=== PATIENT | male | born 1975 | race Caucasian/White ===

== ENCOUNTER 2020-06-20 08:22 | Day surgery (SDC) | payer BC, SELFPAY ==
[2020-06-20] VITALS (12 sets, daily range): BP systolic 108–167; BP diastolic 71–113; PULSE 71–91; RESP 12–20; TEMP 36.6–37.2; O2SAT 97–99; BMI 20.7
--- NOTE | 2020-06-20 | IR_ITS ---
APPROVED REPORT Patient Location: Outpatient Principal Associate: RAPHAEL Campbell RT (R) PROCEDURES Left heart catheterization Left ventriculogram Coronary angiogram INDICATION Numerous risk factors for coronary disease, Abnormal EKG suggesting previous anteroseptal myocardial infarction, Recurrent syncope, Angina pectoris Informed consent was obtained prior to the procedure. COMPLICATIONS NONE Estimated Blood Loss: LESS THAN 10 ML TECHNIQUE One percent lidocaine used to anesthetize the right anterior aspect of the wrist. The right radial artery was accessed via the Seldinger technique. A 6 Sinhala sheath was placed in the right radial artery. 2.5 mg of verapamil, 800 mcg of nitroglycerin, 1mg Lidocaine and 5000 U Heparin were given through the arterial sheath. The trap catheter was also used to perform left heart catheterization, left ventriculogram and selective coronary angiogram. At the end of the procedure the sheath was removed good hemostasis was achieved using Traclet band, patient was transferred to the postop holding area in stable condition. ANGIOGRAPHIC RESULTS The left main artery Normal The left anterior descending artery Normal The circumflex artery Normal The right coronary artery Dominant normal The STONER ventriculogram reveals Normal 65% The left ventricular end-diastolic pressure Normal 10 mmHg IMPRESSION Normal coronary arteries Normal ejection fraction Normal left ventricular end-diastolic pressure PLAN 1. Evaluation of noncardiac chest pain Electronically signed by : Joni Chavez, 06/20/2020 10:25:35
[2020-06-20 09:02] LABS: Basophils % 0.3 % (0.1-2.0); Eosinophils # 0.1 K/mm3 (0.0-0.4); Eosinophils % 1.3 % (0.1-12.0); Hemoglobin 16.4 g/dL (14.1-18.0); Lymphocytes # 1.5 K/mm3 (0.7-4.5); Lymphocytes % 15.6 % (10-50); Mean Corpuscular HGB Conc 33.4 g/dL (31.8-35.4); Mean Corpuscular Hemoglobin 33.5 pg (27.0-31.2); Mean Corpuscular Volume 100.2 fl (80-94); Mean Platelet Volume 8.5 fl (7.4-10.4); Monocytes # 0.5 K/mm3 (0.1-1.0); Monocytes % 4.8 % (1.7-9.3); Neutrophils # 7.3 K/mm3 (1.8-7.8); Neutrophils % 77.9 % (37.0-80.0); Platelet Count 182 K/mm3 (142-424); Red Blood Count 4.89 M/mm3 (4.60-6.20); Red Cell Distribution Width 12.4 % (11.5-17.5); White Blood Count 9.3 K/mm3 (4.8-10.8)
[2020-06-20 09:06] LABS: Chloride 100 mmol/L (98-107); Potassium 3.9 mmoL/L (3.5-5.1); Sodium 142 mmol/L (136-145)
[2020-06-20 09:09] LABS: Anion Gap 15.9 mEq/L (5-15); Blood Urea Nitrogen 7 mg/dl (9-20); Calcium 9.9 mg/dl (8.4-10.2); Carbon Dioxide 30 mmol/L (22.0-30.0); Creatinine Clearance Estimated 122 mL/min (50-200); Estimated Glomerular Filt Rate 123 ml/min (>60); GFR (African American) 149 ML/MIN (>60); Glucose 98 mg/dl (74-100)
[2020-06-20 09:46] LABS: Coronavirus 19 IgG Antibody Negative (Negative); Coronavirus 19 IgM Antibody Negative (Negative)
== END 2020-06-20 13:21 | disposition home or self-care (01) ==
LOC: CATHLAB 08:24
PROVIDERS: PCP Nurse Practitioner Family; Visit Provider Internal Medicine
DX: I10 Essential (primary) hypertension (principal); R94.31 Abnormal electrocardiogram [ECG] [EKG]; R07.9 Chest pain, unspecified; R55 Syncope and collapse; R06.02 Shortness of breath; Z72.0 Tobacco use; Z79.899 Other long term (current) drug therapy
CPT/HCPCS: 80048; 85025; 86328; 93458; 99152; C1725; C1760; C1769; J1644; Q9967

== ENCOUNTER → 2020-06-21 07:46 | Outpatient (CLI) | payer BC, SELFPAY ==
--- NOTE | 2020-06-21 07:46 | CA_ITS ---
APPROVED REPORT EXAM: Comprehensive 2D, Doppler, and color-flow Echocardiogram Warehouse Receiving Supervisor: Lorraine Ball RVT Ht: 5 ft 9 in Wt: 140lbs BSA: 1.78 BP: 162/100 mmHg Indications: CP,SOA,NEAR SYNCOPE,HTN,SMOKER,ANDREA,PECTUS EXCAVATUM,ABN EKG TDS-PT HAS PECTUS EXCAVATUM 2D Dimensions LVOT 1.78 cm (M/F) 1.5-2.5 M-Mode Dimensions RVDd 2.55 cm (0.9-2.6) LVDd 5.16 cm (3.5-5.7) LVDs 3.28 cm (3.5-5.7) IVSd 0.60 cm (0.6-1.1) PWd 0.67 cm (0.6-1.1) EF (Teich) 65.80% FS 36.40% EDV (Teich) 127.20 mL ESV (Teich) 43.50 mL LV Diastology E/A Ratio 1.43 Mitral Valve MV A Velocity 49.00 (40-130 cm/s) Left Ventricle Left atrium is mildly enlarged, left ventricle is normal size, there is no concentric left ventricular hypertrophy, visually estimated ejection fraction 55% with no regional wall motion abnormality, diastolic parameters are within normal range. Right Ventricle Right atrium and right ventricle are normal size and contractility. Aortic Valve Aortic valve is grossly normal, there is no aortic stenosis or aortic insufficiency. Mitral Valve Mitral valve is grossly normal, there is mild mitral regurgitation. Tricuspid Valve Tricuspid valve is grossly normal, there is mild tricuspid regurgitation, tricuspid regurgitation jet velocity is inadequate for calculation of the right ventricular systolic pressure. Pulmonic Valve Pulmonic valve is poorly visualized. Great Vessels Aortic root is normal size. Pericardium No significant pericardial effusion noted. Conclusion 1. Mildly enlarged left atrium, normal left ventricular size, visually estimated ejection fraction 55% with no regional wall motion abnormality, diastolic parameters are within normal range. 2. Mild mitral and tricuspid regurgitation. 3. No significant pericardial effusion noted. Electronically signed by : Juan Nielsen, 06/22/2020 11:42:44
== END ==
PROVIDERS: PCP Nurse Practitioner Family; Visit Provider Internal Medicine
DX: R07.9 Chest pain, unspecified (principal); R06.00 Dyspnea, unspecified; R94.31 Abnormal electrocardiogram [ECG] [EKG]; R55 Syncope and collapse; I10 Essential (primary) hypertension; R12 Heartburn
CPT/HCPCS: 93306

== ENCOUNTER → 2020-06-22 17:48 | Outpatient (CLI) | payer BC, SELFPAY ==
[2020-06-22 18:18] LABS: Basophils % 0.5 % (0.1-2.0); Eosinophils # 0.2 K/mm3 (0.0-0.4); Eosinophils % 2.3 % (0.1-12.0); Hematocrit 43.7 % (42.0-52.0); Hemoglobin 14.7 g/dL (14.1-18.0); Lymphocytes # 2.2 K/mm3 (0.7-4.5); Lymphocytes % 28.1 % (10-50); Mean Corpuscular HGB Conc 33.7 g/dL (31.8-35.4); Mean Corpuscular Hemoglobin 33.4 pg (27.0-31.2); Mean Corpuscular Volume 99.2 fl (80-94); Monocytes # 0.5 K/mm3 (0.1-1.0); Monocytes % 6.3 % (1.7-9.3); Neutrophils # 4.9 K/mm3 (1.8-7.8); Neutrophils % 62.7 % (37.0-80.0); Platelet Count 185 K/mm3 (142-424); Red Blood Count 4.41 M/mm3 (4.60-6.20); Red Cell Distribution Width 12.5 % (11.5-17.5); White Blood Count 7.8 K/mm3 (4.8-10.8)
[2020-06-22 18:19] LABS: Chloride 99 mmol/L (98-107); Sodium 138 mmol/L (136-145)
[2020-06-22 18:20] LABS: Potassium 3.7 mmoL/L (3.5-5.1)
[2020-06-22 18:22] LABS: Alanine Aminotransferase 56 U/L (12-78); Albumin Level 4.8 g/dl (3.5-5.0); Albumin/Globulin Ratio 1.7 (1.1-1.8); Alkaline Phosphatase 60 U/L (38-126); Anion Gap 18.7 mEq/L (5-15); Aspartate Amino Transferase 69 U/L (17-59); Bilirubin,Total 0.4 mg/dl (0.2-1.3); Blood Urea Nitrogen 7 mg/dl (9-20); Calcium 9.8 mg/dl (8.4-10.2); Carbon Dioxide 24 mmol/L (22.0-30.0); Cholesterol 188 mg/dl (140-200); Estimated Glomerular Filt Rate 147 ml/min (>60); GFR (African American) 178 ML/MIN (>60); Globulin 2.9 g/dL (1.3-3.2); Glucose 109 mg/dl (74-100); Total Protein,Serum 7.7 g/dl (6.3-8.2); Triglycerides 229 mg/dl (30-150); VLDL Cholesterol 46 mg/dL (0-40)
[2020-06-22 18:23] LABS: Chol/HDL Ratio 2.4 (1-3.5); HDL Cholesterol 78 mg/dl (40-60)
[2020-06-22 18:34] LABS: Direct LDL Cholesterol 90.54 mg/dL (100-129)
[2020-06-22 18:39] LABS: T4 (Thyroxine) 5.9 ug/dl (5.53-11.0)
[2020-06-22 18:53] LABS: Thyroid Stimulating Hormone 2.55 uIU/mL (0.465-4.68)
== END ==
PROVIDERS: Visit Provider Nurse Practitioner Family
DX: I10 Essential (primary) hypertension (principal); F41.9 Anxiety disorder, unspecified
CPT/HCPCS: 80053; 80061; 84436; 84443; 85025

== ENCOUNTER → 2020-06-27 13:32 | Outpatient (CLI) | payer BC, SELFPAY ==
[2020-06-27 14:00] LABS: Hemoglobin A1C 5.3 % (4.0-6.0)
== END ==
PROVIDERS: Visit Provider Emergency Medicine
DX: R73.9 Hyperglycemia, unspecified (principal)
CPT/HCPCS: 83036

== ENCOUNTER → 2020-07-19 08:10 | Outpatient (CLI) | payer BC, SELFPAY ==
--- NOTE | 2020-07-19 08:14 | US_ITS ---
PROCEDURE: US ABDOMEN LIMITED CLINICAL INDICATION: ABD PAIN COMPARISON: No exams were available for comparison FINDINGS: PANCREAS: Unremarkable. No obvious mass or abnormal fluid collection. No ductal dilatation LIVER: Diffuse increased echogenicity of the liver with poor through transmission of sound consistent with hepatic steatosis. No focal liver lesion demonstrated. There is appropriate direction of blood flow within non dilated portal vein. RIGHT KIDNEY: Unremarkable. Normal size and echogenicity. No hydronephrosis GALLBLADDER: No gallstones, gallbladder wall thickening, pericholecystic fluid, or biliary dilatation. IMPRESSION: Fatty liver otherwise negative right upper quadrant ultrasound Dictated by: Myke Jack MD 07/19/2020 16:29 Myke Jack MD in [place] 07/19/2020 16:29
== END ==
PROVIDERS: PCP Nurse Practitioner Family; Visit Provider Nurse Practitioner Family
DX: R10.11 Right upper quadrant pain (principal)
CPT/HCPCS: 76705

== ENCOUNTER → 2020-12-27 10:05 | Outpatient (CLI) | payer BC, SELFPAY ==
[2020-12-28 10:29] LABS: Alanine Aminotransferase 66 U/L (12-78); Albumin Level 4.8 g/dl (3.5-5.0); Alkaline Phosphatase 63 U/L (38-126); Aspartate Amino Transferase 89 U/L (17-59); Bilirubin,Direct 0.2 mg/dl (0.0-0.4); Bilirubin,Indirect 0.1 mg/dL (0.0-0.9); Bilirubin,Total 0.3 mg/dl (0.2-1.3); Bilirubin,Unconjugated 0.2 mg/dL (0.0-1.1); Total Protein,Serum 7.9 g/dl (6.3-8.2)
== END ==
PROVIDERS: Visit Provider Nurse Practitioner Family
DX: R74.8 Abnormal levels of other serum enzymes (principal)
CPT/HCPCS: 80076

== ENCOUNTER 2021-06-13 09:40 | Emergency (ER) | payer BC, SELFPAY ==
[2021-06-13 09:48] VITALS: BP 139/101; PULSE 89; RESP 16; TEMP 36.7; O2SAT 98; BMI 21.4
--- NOTE | 2021-06-13 10:08 | XR_ITS ---
PROCEDURE: XR ELBOW RT MIN 3V CLINICAL INDICATION: FALL COMPARISON: No exams were available for comparison FINDINGS: No fracture or dislocation. No lytic or blastic change. There is normal mineralization. The joint spaces are well-preserved. No significant degenerative/arthritic changes. No erosive changes evident. Other findings:None. IMPRESSION: No acute findings. Dictated by: Myke Jack MD 06/13/2021 10:20 Myke Jack MD in [facility] 06/13/2021 10:20
--- NOTE | 2021-06-13 10:08 | XR_ITS ---
PROCEDURE: XR SHOULDER RT MIN 2V CLINICAL INDICATION: PAIN COMPARISON: No exams were available for comparison FINDINGS: No fracture or dislocation. No lytic or blastic change. There is normal mineralization. The joint spaces are well-preserved. No significant degenerative/arthritic changes. No erosive changes evident. Other findings:Small focus of calcification at the distal clavicle superiorly nonspecific IMPRESSION: No acute findings. Dictated by: Myke Jack MD 06/13/2021 10:20 Myke Jack MD in [place] 06/13/2021 10:20
[2021-06-13 10:16] VITALS: BP 134/96; PULSE 90; RESP 18; TEMP 36.9; O2SAT 97; BMI 21.4
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
[2021-06-13 10:57] VITALS: BP 134/96; PULSE 90; RESP 18; TEMP 36.9; O2SAT 97
== END 2021-06-13 10:58 | disposition home or self-care (01) ==
PROVIDERS: Emergency Provider Nurse Practitioner Family; PCP Emergency Medicine
DX: S50.01XA Contusion of right elbow, initial encounter (principal); W30.89XA Contact with other specified agricultural machinery, initial encounter; Y92.017 Garden or yard in single-family (private) house as the place of occurrence of the external cause; K21.9 Gastro-esophageal reflux disease without esophagitis; I10 Essential (primary) hypertension; F17.210 Nicotine dependence, cigarettes, uncomplicated
CPT/HCPCS: 73030; 73080; 99202; G0463

== ENCOUNTER 2021-06-25 14:53 | Outpatient (RCR) | payer BC, SELFPAY | END 2021-06-25 15:24 | disposition home or self-care (01) | LOC: OT 14:53 | PROVIDERS: Visit Provider Orthopaedic Surgery | DX: M77.11 Lateral epicondylitis, right elbow (principal); G56.03 Carpal tunnel syndrome, bilateral upper limbs | CPT/HCPCS: 97763 ==

== ENCOUNTER 2023-12-19 13:40 | Emergency (ER) | payer BC, SELFPAY ==
[2023-12-19 13:43] VITALS: BP 132/94; PULSE 125; RESP 18; TEMP 36.6; O2SAT 97; BMI 20.7
[2023-12-19 13:56] VITALS: BP 134/77; PULSE 95; RESP 16; O2SAT 97
[2023-12-19 14:10] VITALS: BP 126/88; PULSE 104; RESP 18; O2SAT 98
--- NOTE | 2023-12-19 14:55 | PC.NURSE ---
Rounded on pt. No needs voiced at this time. Call light within reach
[2023-12-19 15:00] VITALS: BP 143/101; PULSE 104; RESP 18; O2SAT 99
--- NOTE | 2023-12-19 15:29 | PC.NURSE ---
Dr. Alex at [facility] for pt eval
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
[2023-12-19 15:45] VITALS: BP 124/78; PULSE 96; RESP 18; TEMP 36.6; O2SAT 98
== END 2023-12-19 15:45 | disposition home or self-care (01) ==
PROVIDERS: Emergency Provider Emergency Medicine; PCP Internal Medicine
DX: M54.42 Lumbago with sciatica, left side (principal); R20.0 Anesthesia of skin; M62.838 Other muscle spasm; F17.210 Nicotine dependence, cigarettes, uncomplicated
CPT/HCPCS: 99283

== ENCOUNTER 2023-12-25 09:31 | Outpatient (CLI) | payer BC, SELFPAY | END 2023-12-25 23:59 | LOC: LAB.DROPOF 12-29 09:31 | PROVIDERS: PCP Internal Medicine; Visit Provider Internal Medicine | DX: R07.81 Pleurodynia (principal) | CPT/HCPCS: 80053; 80061; 82746; 83036; 84443; 85025; 85651; 86703; G0432 ==

== ENCOUNTER 2023-12-25 12:58 | Outpatient (CLI) | payer BC, SELFPAY ==
--- NOTE | 2023-12-25 13:02 | XR_ITS ---
FINAL REPORT CLINICAL HISTORY: Left foot pain COMPARISON: None FINDINGS: 3 views of the left foot were obtained. There is no acute fracture or dislocation. There is moderate degenerative change at the first MTP. There is no soft tissue abnormality. IMPRESSION: Degenerative change without acute bony abnormality. Reviewed, Interpreted and Dictated by Edmund Viramontes III, MD Transcribed by Aydee Melara Authenticated and [facility]
--- NOTE | 2023-12-25 13:02 | XR_ITS ---
FINAL REPORT CLINICAL HISTORY: chest and ribs pain COMPARISON: None FINDINGS: Two views of the chest were obtained. The heart size and pulmonary vascularity are within normal limits. The mediastinum is normal. No acute pulmonary abnormality is identified. There is no pneumothorax. The bony thorax is intact. IMPRESSION: No active cardiopulmonary disease. Reviewed, Interpreted and Dictated by Edmund Viramontes III, MD Transcribed by Aydee Melara Authenticated and . [facility]
--- NOTE | 2023-12-25 13:02 | XR_ITS ---
FINAL REPORT CLINICAL HISTORY: Right foot pain COMPARISON: None FINDINGS: 3 views of the right foot were obtained. There is no acute fracture or dislocation. There is severe degenerative change of the first MTP. There is mild degenerative change elsewhere. There is no soft tissue abnormality. IMPRESSION: Degenerative changes without acute bony abnormality. Reviewed, Interpreted and Dictated by Edmund Viramontes III, MD Transcribed by Aydee Melara Authenticated and [facility]
[2023-12-25 18:28] LABS: Alanine Aminotransferase 24 U/L (12-78); Albumin Level 4.8 g/dl (3.5-5.0); Albumin/Globulin Ratio 1.7 (1.1-1.8); Alkaline Phosphatase 63 U/L (38-126); Anion Gap 13.8 mEq/L (5-15); Aspartate Amino Transferase 31 U/L (17-59); Bilirubin,Total 0.7 mg/dl (0.2-1.3); Blood Urea Nitrogen 12 mg/dl (9-20); Calcium 9.3 mg/dl (8.4-10.2); Carbon Dioxide 27 mmol/L (22.0-30.0); Chloride 99 mmol/L (98-107); Chol/HDL Ratio 3.8 (1-3.5); Cholesterol 192 mg/dl (140-200); Estimated Glomerular Filt Rate 104 ml/min (>60); GFR (African American) 125 ML/MIN (>60); Globulin 2.9 g/dL (1.3-3.2); Glucose 92 mg/dl (74-100); HDL Cholesterol 51 mg/dl (40-60); Potassium 3.8 mmoL/L (3.5-5.1); Sodium 136 mmol/L (136-145); Total Protein,Serum 7.7 g/dl (6.3-8.2); Triglycerides 232 mg/dl (30-150); VLDL Cholesterol 46 mg/dL (0-40)
[2023-12-25 18:39] LABS: Direct LDL Cholesterol 99.17 mg/dL (100-129)
[2023-12-25 18:48] LABS: Basophils % 0.4 % (0.1-2.0); Eosinophils # 0.1 K/mm3 (0.0-0.4); Hematocrit 49.1 % (42.0-52.0); Lymphocytes # 1.7 K/mm3 (0.7-4.5); Lymphocytes % 23.3 % (10-50); Mean Corpuscular HGB Conc 32.7 g/dL (31.8-35.4); Mean Corpuscular Hemoglobin 32.9 pg (27.0-31.2); Mean Corpuscular Volume 100.7 fl (80-94); Mean Platelet Volume 10.2 fl (7.4-10.4); Monocytes # 0.6 K/mm3 (0.1-1.0); Neutrophils # 4.9 K/mm3 (1.8-7.8); Neutrophils % 67.3 % (37.0-80.0); Platelet Count 162 K/mm3 (142-424); Red Blood Count 4.87 M/mm3 (4.60-6.20); Red Cell Distribution Width 12.8 % (11.5-17.5); White Blood Count 7.3 K/mm3 (4.8-10.8)
[2023-12-25 18:59] LABS: Thyroid Stimulating Hormone 1.56 uIU/mL (0.465-4.68)
[2023-12-25 19:41] LABS: Erythrocyte Sedimentation Rate 4 mm/hr (0-15)
[2023-12-25 21:30] LABS: Hemoglobin A1C 5.6 % (4.0-6.0)
[2023-12-29 14:47] LABS: HIV Screen 4th Generation wRfx Non Reactive
[2023-12-29 14:48] LABS: HBsAg Screen NEGATIVE; HCV Ab Non Reactive; Hep A Ab, IGM Negative; Hep B Core Ab, IgM NEGATIVE
== END 2023-12-25 23:59 ==
LOC: RAD 12:59
PROVIDERS: PCP Internal Medicine; Visit Provider Internal Medicine
DX: M79.671 Pain in right foot (principal); M79.672 Pain in left foot; M25.7 Osteophyte; R07.81 Pleurodynia; E78.1 Pure hyperglyceridemia; K76.0 Fatty (change of) liver, not elsewhere classified; F10.90 Alcohol use, unspecified, uncomplicated; F19.90 Other psychoactive substance use, unspecified, uncomplicated; Z11.4 Encounter for screening for human immunodeficiency virus [HIV]; F17.210 Nicotine dependence, cigarettes, uncomplicated
CPT/HCPCS: 71046; 73620; 80053; 80061; 80074; 82746; 83036; 84443; 85025; 85651; 86703; G0432

== ENCOUNTER 2024-08-02 16:26 | Emergency (ER) | payer BC, SELFPAY ==
[2024-08-02 16:53] VITALS: BP 148/119; PULSE 136; RESP 20; TEMP 36.7; O2SAT 97; BMI 21.4
--- NOTE | 2024-08-02 17:12 | EXP.UTC ---
Discharge Plan Disposition Patient Disposition: Home, Self-Care Condition: Good Prescriptions Prescriptions: No Action acetaminophen [Tylenol] 325 mg tablet 325 mg PO QID PRN (Reason: Headache) prednisone 20 mg tablet 40 mg PO DAILY 5 Days Qty: 10 0RF methocarbamol 750 mg tablet 1,500 mg PO TID 5 Days Qty: 30 0RF Referrals Follow up/Referrals: Jhoan Syed DO [Primary Care Provider] - See instructions Activity Restrictions/Add. Instructions Additional Instructions/Restrictions: GO straight to Emergency Room for further treatment and evaluation and wound closure/treatment Further Care per Emergency Room Clinical Impressions Clinical Impression: Finger laceration Qualifiers: Encounter type: initial encounter Finger: index finger Damage to nail status: with damage Foreign body presence: without foreign body Laterality: right Qualified Code(s): S61.310A - Laceration without foreign body of right index finger with damage to nail, initial encounter Print Language Print Language: Nigerien Discharge ED Provider: Nelida Alva [facility] [place] H[place] General Stated complaint: [id number] RT index finger lac Mode of Arrival: Ambulatory Source of Information: Patient Time Seen by Provider: 08/02/24 17:12 Description of Symptoms (Recalled from Triage Doc. by RN): DEEP CUT TO RIGHT INDEX FINGER, BLEEDING HEAVY HEENT Symptoms (Recalled from RN notes): No Resp Symptoms (Recalled from RN notes): No Skin Symptoms (Recalled from RN notes): Yes MS Symptoms (Recalled from RN notes): Yes Functional Status (Recalled from RN notes): RIGHT FINGER LAC History of Present Illness Provider Complaint: Patient states that he was using a chainsaw file when it slipped and cut him on the knuckle area of his right index finger States that it was bleeding profusely so family member wrapped it up with black tape and he came in Related Data Home Medications ?Medication ?Instructions ?Recorded ?Confirmed acetaminophen 325 mg tablet 325 mg PO QID PRN Headache 06/15/20 12/25/23 (Tylenol) Previous Rx's ?Medication ?Instructions ?Recorded methocarbamol 750 mg tablet 1,500 mg (2 x 750 mg) PO TID 5 12/19/23 days #30 tabs prednisone 20 mg tablet 40 mg (2 x 20 mg) PO DAILY 5 days 12/19/23 #10 tabs Allergies Allergy/AdvReac Type Severity Reaction Status Date / Time No Known Allergies Allergy Verified 12/25/23 11:47 Worker's Comp Is this a Worker's Comp case?: No [facility] Disclaimer: The information contained in this section may have been updated after the patient was seen, as this information can be updated by other users. Medical History (Updated 08/02/24 @ 17:26 by Nelida Alva APRN) Osteophyte of foot Leg weakness Social History Smoking Status: Current every day smoker tobacco type: cigarettes packs per day: 1 second hand exposure: No alcohol intake: current alcohol intake frequency: 3 or more drinks per day substance use type: denies use current occupational status: employed Travel in the last 8 weeks: None housing: house ROS Obtained: Yes All systems reviewed & no additional complaints except as documented and Yes Systems reviewed as appropriate & no additional complaints except as documented Constitutional Constitutional: Reports system reviewed and no additional complaints, except as documented and Reports as per HPI ENT Ears, Nose, Mouth, and Throat: Reports system reviewed and no additional complaints, except as documented and Reports as per HPI Cardiovascular Cardiovascular: Reports system reviewed and no additional complaints, except as documented and Reports as per HPI Gastrointestinal Gastrointestingal: Reports system reviewed and no additional complaints, except as documented and as per HPI Musculoskeletal Musculoskeletal: Reports system reviewed and no additional complaints, except as documented and Reports as per HPI Comments: Deep laceration to knuckle area on right index finger Physical Exam General General appearance: alert and in no apparent distress Respiratory Respiratory exam: Present normal lung sounds bilaterally; Absent respiratory distress or wheezes Cardiovascular Cardiovascular exam: Present regular rate, normal rhythm and normal heart sounds Expanded Upper Extremity Exam Right: Hand L/R back image: 1. large laceration noted, appears deep with what appears to be bone/tendon noted denies numbness however when digit moved heavy bleeding noted Neurological Exam Neurological exam: Present alert, oriented X3 and normal gait Medical Decision Making Medical Records Screening: Per USPSTF and CDC recommendations, given the prevalence of disease in our region, it is our hospital?s policy to screen for HIV and viral Hepatitis for all patients aged 18 and over and those with ongoing risk factors. Jw Inquiry Pt receiving controlled substance: No Jw was queried for this patient: No Vital Signs: 08/02/24 16:53 Temperature 98.1 F Temperature Source Oral Pulse Rate [Left Brachial] 136 H Respiratory Rate 20 Blood Pressure [Left Arm] 148/119 H Blood Pressure Mean [Left Arm] 128 02 Sat by Pulse Oximetry 97 Medical Decision Narrative: Family had right finger taped with bandage and black tape and finger was becoming discolored Bandage removed and noted large laceration to knuckle area on right index finger and when moved finger would bleed heavily noted question bone/tendon involvement and observed what appeared to be bone exposure discussed with patient about transfer to ED or if he would prefer to go to [facility] for hand and he discussed with Family and will go straight to Emergency Room for further treatment and evaluation Xray ordered but family arrived prior to xray being completed and he wanted to go on to the ED
[2024-08-02 17:26] VITALS: BP 148/119; PULSE 136; RESP 20; TEMP 36.7
== END 2024-08-02 17:27 | disposition home or self-care (01) ==
PROVIDERS: Emergency Provider Nurse Practitioner; PCP Internal Medicine
DX: S61.210A Laceration without foreign body of right index finger without damage to nail, initial encounter (principal); W26.8XXA Contact with other sharp object(s), not elsewhere classified, initial encounter
CPT/HCPCS: 99203; 99212; G0463

== ENCOUNTER 2024-08-20 15:27 | Emergency (ER) | payer BC, SELFPAY ==
[2024-08-20] VITALS (7 sets, daily range): BP systolic 121–147; BP diastolic 91–109; PULSE 105–113; RESP 13–21; TEMP 36.4; O2SAT 96–99; BMI 20.7
--- NOTE | 2024-08-20 15:30 | ECG_ITS ---
APPROVED REPORT Exam: Resting ECG HR:111 bpm ECG Measurements Heart Rate 111 AXES TN 166 P 75 QRSd 141 QRS -5 QT 365 T 90 QTc 430 Conclusion Sinus tach Incomplete right bundle branch block Electronically signed by : GIANCARLO NEIL, 08/20/2024 20:45:20
--- NOTE | 2024-08-20 15:31 | PC.NURSE ---
Dr. Alex at [facility] for pt eval
--- NOTE | 2024-08-20 15:34 | XR_ITS ---
FINAL REPORT CLINICAL HISTORY: soa, LE swelling COMPARISON: 12/25/2023 FINDINGS: A single portable view of the chest was obtained. Cardiomegaly is present. The mediastinum is within normal limits. When compared to the prior exam of December, there are worsening bibasilar opacities, atelectasis versus pneumonia. There are also small to moderate-sized bilateral pleural effusions, new since the prior exam. The bony thorax is intact. IMPRESSION: Worsening bibasilar opacities, atelectasis versus pneumonia, with small to moderate bilateral pleural effusions, also new since the prior exam. Reviewed, Interpreted and Dictated by Edmund Viramontes III, MD Transcribed by Maura Toledo Authenticated and [facility]
[2024-08-20] MEDS: ASPIRIN 81MG CHEWABLE TABLET 324 MG PO (15:50)
[2024-08-20] MEDS: MAGNESIUM OXIDE 400MG TABLET 400 MG PO (15:50)
[2024-08-20] MEDS: FOLIC ACID 1MG TABLET 1 MG PO (15:50)
[2024-08-20] MEDS: THIAMINE 100MG TABLET 100 MG PO (15:50)
--- NOTE | 2024-08-20 15:50 | PC.NURSE ---
RAD at BS
[2024-08-20] MEDS: MAGNESIUM SULFATE IN WATER 2 GM/50 ML PIGGYBACK IV (15:51)
[2024-08-20 15:54] LABS: Basophils % 0.4 % (0.1-2.0); Chloride 76 mmol/L (98-107); Eosinophils % 0.4 % (0.1-12.0); Hematocrit 44.3 % (42.0-52.0); Hemoglobin 15.4 g/dL (14.1-18.0); Lymphocytes # 1.4 K/mm3 (0.7-4.5); Lymphocytes % 15.4 % (10-50); Mean Corpuscular HGB Conc 34.7 g/dL (31.8-35.4); Mean Corpuscular Hemoglobin 34.8 pg (27.0-31.2); Mean Corpuscular Volume 100.2 fl (80-94); Mean Platelet Volume 9.2 fl (7.4-10.4); Monocytes # 0.8 K/mm3 (0.1-1.0); Neutrophils # 6.6 K/mm3 (1.8-7.8); Neutrophils % 74.9 % (37.0-80.0); Platelet Count 203 K/mm3 (142-424); Potassium 4.2 mmoL/L (3.5-5.1); Red Blood Count 4.42 M/mm3 (4.60-6.20); Red Cell Distribution Width 13.5 % (11.5-17.5); White Blood Count 8.8 K/mm3 (4.8-10.8)
[2024-08-20 15:56] LABS: Lipase 200 U/L (23-300); Magnesium 1.5 mg/dl (1.6-2.3)
[2024-08-20 15:57] LABS: Alanine Aminotransferase 143 U/L (12-78); Alkaline Phosphatase 208 U/L (38-126); Aspartate Amino Transferase 225 U/L (17-59); Blood Urea Nitrogen 8 mg/dl (9-20); Carbon Dioxide 22 mmol/L (22.0-30.0); Estimated Glomerular Filt Rate 144 ml/min (>60); Ethyl Alcohol 68 mg/dl (0-10); GFR (African American) 175 ML/MIN (>60)
[2024-08-20 15:58] LABS: Calcium 8.6 mg/dl (8.4-10.2); Glucose 111 mg/dl (74-100)
[2024-08-20 16:01] LABS: Activated Partial Thrombo Time 32.5 seconds (22.8-30.6)
[2024-08-20 16:04] LABS: Creatinine Clearance Estimated 137 mL/min (50-200); INR 1.18 (0.9-1.1)
[2024-08-20 16:06] LABS: Anion Gap 17.2 mEq/L (5-15); Sodium 111 mmol/L (136-145)
--- NOTE | 2024-08-20 16:06 | PC.NURSE ---
CRITICAL SODIUM 111, RECEIVED FROM LAB. PT NAME AND R/V, DR NEIL NOTIFIED
--- NOTE | 2024-08-20 16:10 | ED_ITS ---
Discharge Plan Disposition Patient Disposition: Xfer Short-Term Hosp Chief Complaint: Extremity Problem,Nontraumatic Clinical Impressions Clinical Impression: CHF exacerbation, Wet beri-beri, Acute hyponatremia Discharge ED Provider: Lewis Alex General Adult HPI General Chief complaint: Extremity Problem,Nontraumatic Stated complaint: chest pain Time Seen by Provider: 08/20/24 15:33 Mode of Arrival: Ambulatory Source of Information: Patient Limitations: No Limitations Description of Symptoms (Recalled from ER Triage Doc. by RN): c/o swelling in lower extremities and stomach for 2 weeks, swelling in the face since august 04. 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 History of Present Illness HPI narrative: Please note that above description of symptoms, in this electronic medical record under categorization of recalled from ER triage doctor by RN are reflective of an initial nursing assessment, however, is not reflective of my full history and physical exam that was personally taken and clarified. Consequentially, this preceding description of symptoms, which may include the patient's categorized chief complaint in the EMR, do not reflect my personal clinical impression, and the ultimate description of history of present illness and patient stated complaints should be deferred to this section of the note. Unless stated otherwise or congruent with this section of the note, additional signs, symptoms, or incongruence should be interpreted as inaccurate with my clinical impression. Related Data Home Medications ?Medication ?Instructions ?Recorded ?Confirmed acetaminophen 325 mg tablet 325 mg PO QID PRN Headache 06/15/20 12/25/23 (Tylenol) Previous Rx's ?Medication ?Instructions ?Recorded methocarbamol 750 mg tablet 1,500 mg (2 x 750 mg) PO TID 5 12/19/23 days #30 tabs prednisone 20 mg tablet 40 mg (2 x 20 mg) PO DAILY 5 days 12/19/23 #10 tabs Allergies Allergy/AdvReac Type Severity Reaction Status Date / Time No Known Allergies Allergy Verified 12/25/23 11:47 [facility] Disclaimer: The information contained in this section may have been updated after the patient was seen, as this information can be updated by other users. Medical History Osteophyte of foot Leg weakness Social History Smoking Status: Current every day smoker tobacco type: cigarettes packs per day: 1 second hand exposure: No alcohol intake: current alcohol intake frequency: 3 or more drinks per day substance use type: denies use current occupational status: employed Travel in the last 8 weeks: None housing: house Other Medical History Have you received the Flu Vaccine for this season: Yes Have you received the Pneumonia Vaccine: No ROS Obtained: Yes All systems reviewed & no additional complaints except as documented Physical Exam General General appearance: alert, in no apparent distress and appears intoxicated Head Head exam: atraumatic and normocephalic Eye Eye exam: Present PERRL, EOMI and scleral icterus Neck Neck exam: Present normal inspection, full ROM and trachea midline Respiratory Respiratory exam: Present normal lung sounds bilaterally; Absent respiratory distress, wheezes, stridor, accessory muscle use or prolonged expiratory phase Cardiovascular Cardiovascular exam: Present normal rhythm, tachycardia, normal heart sounds and other (Pulses equal symmetric in upper and lower extremities) Abdominal Exam Abdominal exam: Present soft; Absent distention, tenderness or pulsatile mass Extremities Exam Extremities exam: Present edema (2+ nonpitting) Neurological Exam Neurological exam: Present alert, oriented X3, CN II-XII intact and normal gait; Absent motor sensory deficit Skin Skin exam: Present warm and dry; Absent diaphoresis or erythema Medical Decision Making Medical Records Medical records reviewed: Yes I reviewed the patient's medical records. Screening: Per USPSTF and CDC recommendations, given the prevalence of disease in our region, it is our hospital?s policy to screen for HIV and viral Hepatitis for all patients aged 18 and over and those with ongoing risk factors. Jw Inquiry Pt receiving controlled substance: No Jw was queried for this patient: No Vital Signs: 08/20/24 15:27 08/20/24 16:00 08/20/24 16:15 Temperature Temperature Source Pulse Rate 110 H 105 H Pulse Rate [Left Radial] 113 H Respiratory Rate 18 19 13 Blood Pressure 122/91 H Blood Pressure [Right Arm] 147/109 H Blood Pressure Mean [Right Arm] 121 Blood Pressure Source [Right Arm] Automatic Cuff Blood Pressure Position [Right Arm] Sitting 02 Sat by Pulse Oximetry 99 98 98 Oxygen Delivery Method Room Air 08/20/24 17:16 Temperature 97.6 F Temperature Source Oral Pulse Rate 106 H Pulse Rate [Left Radial] Respiratory Rate 17 Blood Pressure 121/97 H Blood Pressure [Right Arm] Blood Pressure Mean [Right Arm] Blood Pressure Source [Right Arm] Blood Pressure Position [Right Arm] 02 Sat by Pulse Oximetry Oxygen Delivery Method Room Air Lab Data Lab Results 08/20/24 15:29: WBC 8.8, RBC 4.42 L, Hgb 15.4, Hct 44.3, MCV 100.2 H, MCH 34.8 H , MCHC 34.7, RDW 13.5, Plt Count 203, MPV 9.2, Neut % (Auto) 74.9, Lymph % (Auto) 15.4, [place] % (Auto) 9.0, Eos % (Auto) 0.4, Baso % (Auto) 0.4, Neut # (Auto) 6.6, Lymph # (Auto) 1.4, [place] # (Auto) 0.8, Eos # (Auto) 0.0, Baso # (Auto) 0.0, PT 13.0 H, INR 1.18 H, APTT 32.5 H, Sodium 111 L*, Potassium 4.2, C hloride 76 L, Carbon Dioxide 22, Anion Gap 17.2 H, BUN 8 L, Creatinine 0.60 L, Estimated Creat Clear 137, Estimated GFR 144, Est GFR ( Amer) 175, G lucose 111 H, Hemoglobin A1c 5.1, Calcium 8.6, Phosphorus 3.0, Magnesium 1.5 L, Total Bilirubin 2.0 H, AST 225 H, ALT 143 H, Alkaline Phosphatase 208 H, Troponin I 0.02, NT-Pro-B Natriuret Pep 4090 H, Total Protein 7.3, Albumin 4.1, Globulin 3.2, Albumin/Globulin Ratio 1.3, Lipase 200, TSH 4.45, Thyroxine (T4) 7.2, Plasma/Serum Alcohol 68 H 08/20/24 15:55: Ammonia < 9 L, Blood Type B Positive, Antibody Screen Negative 08/20/24 15:29 08/20/24 15:29 Orders (Tests/Meds): ED MEDICATIONS Generic Name Dose Route Start Last Admin Trade Name Freq PRN Reason Stop Dose Admin Famotidine 20 mg 08/20/24 21:00 Famotidine 20mg/2ml Vial IV 09/19/24 20:59 BID MARIO Folic Acid 1 mg 08/21/24 09:00 Folic Acid 1mg Tablet PO 09/20/24 08:59 DAILY MARIO Sodium Chloride 500 mls @ 30 mls/hr 08/20/24 16:55 08/20/24 18:01 Sod Chloride 3% 500ml Bag (Hypertonic) IV 08/21/24 09:34 30 mls/hr .[id number] ONE Administration Lorazepam 2 mg 08/20/24 16:56 Lorazepam 2mg/Ml Vial IV 09/19/24 16:55 Q1HP PRN CIWA >16 Lorazepam 1 mg 08/20/24 16:56 Lorazepam 1mg Tablet PO 09/19/24 16:55 Q1HP PRN CIWA Score 8-15 Lorazepam 1 mg 08/20/24 16:56 Lorazepam 2mg/Ml Vial IV 09/19/24 16:55 Q1HP PRN CIWA Score 8-15 Lorazepam 1 mg 08/20/24 16:56 Lorazepam 1mg Tablet PO 09/19/24 16:55 Q6HP PRN CIWA 2-7 Multivitamins 1 each 08/20/24 17:00 08/20/24 17:20 Multivitamin Tablet PO 09/19/24 16:59 Not Given 1700 MARIO Sodium Chloride 10 ml 08/20/24 16:56 Sodium Chloride 0.9% 10ml Vial IV 09/19/24 16:55 NEEDED PRN to Dilute Lorazepam inj Sodium Chloride 8 ml 08/20/24 16:56 Sodium Chloride 0.9% 10ml Vial IV 09/19/24 16:55 NEEDED PRN dilute pepcid Thiamine HCl 100 mg 08/21/24 09:00 Thiamine 100mg Tablet PO 08/23/24 09:01 DAILY MARIO Discontinued Medications Generic Name Dose Route Start Last Admin Trade Name Freq PRN Reason Stop Dose Admin Aspirin 324 mg 08/20/24 15:34 08/20/24 15:50 Aspirin 81mg Chewable Tablet PO 08/20/24 15:35 324 mg ONCE ONE Administration Folic Acid 1 mg 08/20/24 15:40 08/20/24 15:50 Folic Acid 1mg Tablet PO 08/20/24 15:41 1 mg ONCE ONE Administration Furosemide 40 mg 08/20/24 16:49 08/20/24 18:00 Furosemide 40mg/4ml Vial IV 08/20/24 16:50 40 mg ONCE ONE Administration Magnesium Sulfate 2 gm in 50 mls @ 50 mls/hr 08/20/24 15:39 08/20/24 15:51 Magnesium Sulfate 2gm/50ml Premix IV 08/20/24 16:38 50 mls/hr ONCE ONE Administration Sodium Chloride 1,000 mls @ 999 mls/hr 08/20/24 16:09 08/20/24 16:34 Sod Chlor 0.9% 1000ml Bag IV 08/20/24 17:09 999 mls/hr .Q1H1M ONE Administration Thiamine HCl 100 mg/ Sodium 51 mls @ 204 mls/hr 08/20/24 17:35 08/20/24 18:00 Chloride IV 08/20/24 17:36 204 mls/hr ONCE ONE Administration Thiamine HCl 100 mg/ Sodium 51 mls @ 204 mls/hr 08/20/24 17:46 Chloride IV 08/20/24 17:47 ONCE ONE Magnesium Oxide 400 mg 08/20/24 15:40 08/20/24 15:50 Magnesium Oxide 400mg Tablet PO 08/20/24 15:41 400 mg ONCE ONE Administration Thiamine HCl 100 mg 08/20/24 15:39 08/20/24 15:50 Thiamine 100mg Tablet PO 08/20/24 15:40 100 mg ONCE ONE Administration ORDERS Category Date Time Status Type and Screen Stat BBK 08/20/24 15:55 Completed POCUS Point of Care (ER Only) Stat Exams 08/20/24 16:52 Completed XR chest portable Stat Exams 08/20/24 15:34 Completed Ammonia Stat Lab 08/20/24 15:55 Completed Basic Metabolic Panel Routine Lab 08/20/24 22:00 Ordered Complete Blood Count Auto Diff AMLAB Lab 08/21/24 06:00 Ordered Complete Blood Count Auto Diff Routine Lab 08/20/24 16:57 Ordered Complete Blood Count Auto Diff Stat Lab 08/20/24 15:29 Completed Comprehensive Metabolic Panel AMLAB Lab 08/21/24 06:00 Ordered Comprehensive Metabolic Panel Stat Lab 08/20/24 15:29 Completed Creatinine,Urine Random Stat Lab 08/20/24 15:36 Ordered Drug Screen,Urine Stat Lab 08/20/24 15:36 Ordered Ethanol [Ethyl Alcohol] Stat Lab 08/20/24 15:29 Completed HIV (1&2) Antibody Rapid Stat Lab 08/20/24 15:29 Received Hemoglobin A1C Stat Lab 08/20/24 15:29 Completed Hep C Ab with Reflex to RNA Stat Lab 08/20/24 15:29 Received Lipase Stat Lab 08/20/24 15:29 Completed Lipid Panel AMLAB Lab 08/21/24 06:00 Ordered Magnesium AMLAB Lab 08/21/24 06:00 Ordered Magnesium Stat Lab 08/20/24 15:29 Completed NT Pro Brain Natriuretic Pep. Stat Lab 08/20/24 15:29 Completed PT INR [Prothrombin Time INR] Stat Lab 08/20/24 15:29 Completed PTT [Activated Partial Thrombo Time] Stat Lab 08/20/24 15:29 Completed Phosphorous AMLAB Lab 08/21/24 06:00 Ordered Phosphorous Routine Lab 08/20/24 15: Completed Prothrombin Time INR DAILY Lab 08/21/24 06:00 Ordered Sodium,Urine Random Stat Lab 08/20/24 15:36 Ordered T4 (Thyroxine) Stat Lab 08/20/24 15:29 Completed TSH [Thyroid Stimulating Hormone] Stat Lab 08/20/24 15:29 Completed Troponin I Q3H Lab 08/20/24 18:45 Ordered Troponin I Q3H Lab 08/20/24 21:45 Ordered Troponin I Stat Lab 08/20/24 15:29 Completed HEART Score History (anamnesis): Moderately suspicious ECG: Normal Age: 45-65 years Risk factors: 3 or more risk factors Troponin: </= normal limit HEART Score: 4 Medical Decision Narrative: 48-year-old male history of long-term tobacco use still currently smoking with likely undiagnosed COPD, alcohol use disorder currently drinking 18 beers per day as well as moderate amount of hard liquor daily presenting with shortness of breath and swelling. Patient states that he has been progressively worsening lower extremity swelling since last month. States that he now feels that he swollen all the way up to his face. No difficulty breathing, swallowing, fevers, chills, night sweats. Patient has never had anything like this in the past. No unilateral swelling as compared to the other side. It is all symmetric. States that he is having difficulty lying flat at night, sleeps propped up on pillows and has not had any cough. Still currently smoking and drinking, last drink was this morning. History was obtained via conversation with patient and significant other. On arrival, patient hemodynamically stable, alert, oriented x4, appropriate, GCS 15, moving all extremities spontaneously, pupils equal and reactive to light. Full physical exam performed and significant for chronically ill-appearing male who is in no acute distress. Lungs are clear to auscultation bilaterally anterior and posteriorly. Cardiac exam without murmurs gallops or rubs. He does have 2+ nonpitting lower extremity edema as well as edema in his upper extremities. Patient's sclera are slightly icteric. Face does not appear to be edematous grossly. No evidence of tonsillitis, exudate, pharyngeal erythema, uvular deviation, palatal swelling, trismus, external neck swelling, submental induration, dental abscess, angioedema, or other abnormal shirley pharyngeal findings. Differential includes CHF, wet beriberi, vitamin or mineral deficiency, other metabolic derangement, hypothyroidism, COPD, pneumonia, fluid overload, renal insufficiency, among others. Patient given IV and oral thiamine, oral folate, IV magnesium 2 g, Lasix IV, and hypertonic saline was started at slow rate at recommendation of hospitalist after consultation. Patient placed on continuous cardiac monitoring and continuous pulse ox with initial blood pressure 147/109, heart rate 113, oxygen saturation 99% on room air. Bedside [id number] ultrasound with B-lines, EPSS 27, TAPSE 9 mm consistent with severe heart failure. Patient also has small pericardial effusion. Independent interpretation of EKG shows sinus tachycardia [address] depressions and T wave inversions in V5, V6. No reciprocal change. QRS widened 141. LA 166, QTc 430. Borderline leftward axis. Patient was given IV magnesium, folate and thiamine p.o. for symptomatic management and correction of underlying abnormalities. Workup independently interpreted and significant for nonactionable CBC. INR 1.18. Patient's chemistry concerning for sodium 111, chloride 76, creatinine 0.6 and BUN 8. Patient's magnesium low at 1.5, LFTs all elevated bilirubin 2.0, AST 225, ALT 143, alkaline phosphatase 208. Ammonia negative. Trope negative. Patient's BNP elevated at 4100. Alcohol level 68. On independent interpretation of imaging, patient has bilateral pleural effusions, cardiomegaly edematous fissures consistent with heart failure. See radiology read for full review of final results. Heart score 4. On reevaluation, patient remains at baseline. Medicine consulted and case was discussed at length. Because we do not have cardiology on over the weekend, no ability to formally evaluate and manage patient inpatient, recommended transfer. Given patient presentation, workup, history, this most likely represents acute CHF, likely wet beriberi in the setting of current call abuse and chronic hyponatremia. Because patient high risk for clinical decompensation if discharged, deemed appropriate for transfer and inpatient admission. Results were relayed to patient who voiced understanding and patient was agreeable to transfer, inpatient admission, and management. Patient was graciously accepted and transferred to [facility] for further definitive management, under Dr. Santiago. Bacteriology Professor disclaimer Much of this encounter note is an electronic buyer internship spoken language to printed text. Electronic buyer internship of the spoken language may permit errors. Although I have reviewed the note, some errors may still exist. Procedures Limited Ultrasound Indication:: Limited cardiac ultrasound Indication: Shortness of breath, PND, orthopnea Identified cardiac views: -Cardiac parasternal long axis -Cardiac parasternal short axis Findings: -Cardiac activity present -Gross wall motion abnormal -Pericardial effusion present -Right heart strain absent Impression: Patient has globally decreased systolic function with estimated EF less than 10%. Small pericardial effusion. EPSS 27, TAPSE 9 mm. Images were saved to permanent archive The study was technically adequate CPT: 76215 This study was performed by me, and I personally interpreted all images/videos. Based on my clinical judgement, these images were adequate and did not necessitate further imaging Critical Care Critical Care Time Critical Care Time: Yes (cv) Attestation: On 08/20/24, the high probability of a clinically significant, sudden or life threatening deterioration of the following system(s) required my full and direct attention, intervention and personal management. The time I documented below is in addition to time spent performing reported procedures but includes the following listed in this critical care notation. Total Time Total Critical Care Time: 45
[2024-08-20 16:15] LABS: Troponin I 0.02 ng/ml (0.00-0.034)
[2024-08-20 16:16] LABS: Hemoglobin A1C 5.1 % (4.0-6.0)
[2024-08-20 16:29] LABS: Ammonia < 9 umol/L (9-30)
[2024-08-20 16:32] LABS: NT Pro Brain Natriuretic Pep. 4090 pg/mL (0-125)
[2024-08-20] MEDS: 0.9 % SODIUM CHLORIDE 1000ML 1,000 ML 999 ML IV (16:34)
[2024-08-20 16:35] LABS: Thyroid Stimulating Hormone 4.45 uIU/mL (0.465-4.68)
--- NOTE | 2024-08-20 16:41 | PC.NURSE ---
DR NEIL ATTEMPTED TO SPEAK WITH HOSPITALIST, WILL CALL BACK
[2024-08-20 16:42] LABS: Albumin Level 4.1 g/dl (3.5-5.0); Albumin/Globulin Ratio 1.3 (1.1-1.8); Globulin 3.2 g/dL (1.3-3.2); Total Protein,Serum 7.3 g/dl (6.3-8.2)
[2024-08-20 16:43] LABS: T4 (Thyroxine) 7.2 ug/dl (5.53-11.0)
--- NOTE | 2024-08-20 16:58 | PC.NURSE ---
PAINTER SUPERVISOR NOTIFIED OF ADMISSION
--- NOTE | 2024-08-20 17:03 | EXP.HP ---
History of Present Illness *Admission Date: 08/20/24 *Reason for visit:: Dyspnea with exertion *History of present illness: Mr. Lu is a 48-year-old male with history of alcoholism who reports drinking a case of beer a day and 1/5 tequila a day. He presented to the ER at the encouragement of his family because of inability to walk more than a few feet without being severely short of breath. States that he has been having increased swelling in his legs and dyspnea with exertion over the past 2 to 3 weeks. Denies any syncope, chest pain, nausea or vomiting. On arrival to the ER, found to have peripheral edema, tachycardia, and significant lab abnormalities. Patient has a sodium of 111, chloride 76. Bedside echo concerning for EF less than 10%. Feet are cold. Appears to have acute heart failure with reduced ejection fraction. Also noted to have elevated liver enzymes with a meld of 11. Medicine consulted for admission or treatment recommendations. On evaluation, family is at bedside. Patient stable on room air. Feet noted to be cold with mottling. 3+ edema in lower extremities. Lung lilly diminished in lower portions on inspiration. Findings significantly concerning for wet. Very with heart failure. [facility] Disclaimer: The information contained in this section may have been updated after the patient was seen, as this information can be updated by other users. Medical History Osteophyte of foot Leg weakness Social History Smoking Status: Current every day smoker tobacco type: cigarettes packs per day: 1 second hand exposure: No alcohol intake: current alcohol intake frequency: 3 or more drinks per day substance use type: denies use current occupational status: employed Travel in the last 8 weeks: None housing: house Other Medical History Have you received the Flu Vaccine for this season: Yes Have you received the Pneumonia Vaccine: No Review of Systems Review of Systems Review of systems (narrative): 14 point review of systems performed, pertinent positives and negatives as per HPI Meds Home Medications and Allergies Home Medications ?Medication ?Instructions ?Recorded ?Confirmed ?Type acetaminophen 325 mg tablet 325 mg PO QID PRN Headache 06/15/20 12/25/23 History (Tylenol) methocarbamol 750 mg tablet 1,500 mg (2 x 750 mg) PO TID 5 12/19/23 Rx days #30 tabs prednisone 20 mg tablet 40 mg (2 x 20 mg) PO DAILY 5 days 12/19/23 12/25/23 Rx #10 tabs New Prescriptions to Start Prescriptions: Allergies Allergy/AdvReac Type Severity Reaction Status Date / Time No Known Allergies Allergy Verified 12/25/23 11:47 Exam Data for Last 24 hours Vital signs and Labs for Last 24 Hours: Pulse Resp BP Pulse Ox O2 Del Method 110 H 19 147/109 H 98 Room Air 08/20/24 16:00 08/20/24 16:00 08/20/24 15:27 08/20/24 16:00 08/20/24 15:27 Laboratory Results - last 24 hr 08/20/24 15:29: WBC 8.8, RBC 4.42 L, Hgb 15.4, Hct 44.3, MCV 100.2 H, MCH 34.8 H, MCHC 34.7, RDW 13.5, Plt Count 203, MPV 9.2, Neut % (Auto) 74.9, Lymph % (Auto) 15.4, [place] % (Auto) 9.0, Eos % (Auto) 0.4, Baso % (Auto) 0.4, Neut # (Auto) 6.6, Lymph # (Auto) 1.4, [place] # (Auto) 0.8, Eos # (Auto) 0.0, Baso # (Auto) 0.0, PT 13.0 H, INR 1.18 H, APTT 32.5 H, Sodium 111 L*, Potassium 4.2, Chloride 76 L, Carbon Dioxide 22, Anion Gap 17.2 H, BUN 8 L, Creatinine 0.60 L, Estimated Creat Clear 137, Estimated GFR 144, Est GFR ( Amer) 175, Glucose 111 H, Hemoglobin A1c 5.1, Calcium 8.6, Magnesium 1.5 L, Total Bilirubin 2.0 H, AST 225 H, ALT 143 H, Alkaline Phosphatase 208 H, Troponin I 0.02, NT-Pro-B Natriuret Pep 4090 H, Total Protein 7.3, Albumin 4.1, Globulin 3.2, Albumin/Globulin Ratio 1.3, Lipase 200, TSH 4.45, Thyroxine (T4) 7.2, Plasma/Serum Alcohol 68 H 08/20/24 15:55: Ammonia < 9 L, Blood Type B Positive, Antibody Screen Negative I & O for Last 24 hours: Intake & Output 08/17/24 08/18/24 08/19/24 08/20/24 23:59 23:59 23:59 23:59 Weight 63.503 kg Constitutional Constitutional: mild distress, thin, chronically ill appearing and cooperative *Routine HEENT Exam Head: Present normocephalic and atraumatic Eye: Present EOMI and PERRL ENT: Present mucous membranes moist Comments: Scleral icterus; breath smells like alcohol *Routine Neck Exam Neck: Present supple *Routine Respiratory Exam Respiratory: Present prolonged expiratory phase, crackles (Bilateral bases) and diminished air movement; Absent rhonchi or wheezes *Routine Cardiovascular Exam Cardiovascular: Present tachycardia; Absent murmur *Routine Abdominal Exam Abdominal: Present soft, normoactive bowel sounds and tenderness; Absent distended Comments: Abdominal wall edema. Liver palpable 4 fingerbreadths below costal margin *Routine Rectal Exam Rectal:: deferred *Routine Genitalia Exam Genitalia:: deferred *Routine Extremities Exam Extremities: Present edema (3+ knees) Comments: Mottling of feet, feet cold *Routine Skin Exam Skin: Present intact and mottling (Feet and hands); Absent erythema *Routine Neurological Exam Neurological: Present alert, oriented X3 and moving all extremities; Absent altered mental status Routine Psychiatric Exam Psychiatric: Present normal affect Assessment and Plan *Assessment and plan (1) New onset of congestive heart failure: Status: Acute Category: Medical Code(s): I50.9 - Heart failure, unspecified (2) Hyponatremia: Status: Acute Category: Medical Code(s): E87.1 - Hypo-osmolality and hyponatremia (3) Alcoholic hepatitis: Status: Acute Category: Medical Code(s): K70.10 - Alcoholic hepatitis without ascites (4) Alcohol use disorder: Problem Comment: I think this patient does have an alcohol use disorder. Will follow closely and work with him to the best of our ability to get him to quit drinking. Status: Acute Category: Medical Code(s): F10.90 - Alcohol use, unspecified, uncomplicated (5) Hepatic steatosis: Problem Comment: I think in the very near future we need to get a better look at his liver. Will get liver functions today. We have not gotten labs in this gentleman for quite some time. His heavy alcohol use is an issue I have discussed this with him today. Status: Acute Category: Medical Code(s): K76.0 - Fatty (change of) liver, not elsewhere classified (6) HTN (hypertension): Problem Comment: I told this patient that he needs to check his blood pressures at home. He needs to do this in the morning before he smokes or drinks coffee or anything else. He is to record them and bring them back to the clinic. We may need to treat him at that time. I will see him back in 2 weeks. Status: Acute Qualifiers: Hypertension type: essential hypertension Qualified Code(s): I10 - Essential (primary) hypertension Category: Medical Code(s): I10 - Essential (primary) hypertension (7) Anasarca: Status: Acute Category: Medical Code(s): R60.1 - Generalized edema Plan Mr. Lu is a 48-year-old male with significant alcohol dependence who presents with worsening dyspnea and swelling over the past 2 to 3 weeks. Discussed case with ER physician, strong concern for wet beriberi with additional findings of alcoholic hepatitis and hyponatremia. Patient was evaluated in the ER. While he is hemodynamically stable at this time, bedside echo concerning for EF less than 10%. Recommend at this time patient be transferred to higher level of care given concern for impending cardiogenic shock, white beriberi, hyponatremia, and alcoholic hepatitis. Will need monitoring for alcohol withdrawal. - Recommend initiating diuresis with Lasix 80 mg once. - Recommend thiamine 100 mg IV x 1 -Close monitoring of sodium every 6 hours, correction rate 8 to 10 mEq/day -Would benefit from initiating hypertonic saline at 30 cc an hour due to severity of hyponatremia of 111. Chloride 76. -Thiamine level ordered and pending - Magnesium 1.5, bilirubin 2, AST 225, ALT 143. BNP 4000. - obtain Urine sodium to evaluate hyponatremia -Alcohol level 70, CIWA protocol while awaiting transfer. Would recommend Ativan p.o. or IV if has symptoms given concern for alcoholic hepatitis -MELD score 11. -Continue telemetry -Thank you for the opportunity to consult on this patient, if unable to transfer, will admit to ICU for monitoring and treatment with re-evaluation.
--- NOTE | 2024-08-20 17:12 | PC.NURSE ---
report given to Eli ROSS
--- NOTE | 2024-08-20 17:18 | PC.NURSE ---
Rosamaria, college specialist, at BS with pt
[2024-08-20] MEDS: THIAMINE HCL 100 MG in 0.9 % SODIUM CHLORIDE 50 ML 204 MG IV (18:00)
[2024-08-20] MEDS: FUROSEMIDE 40MG/4ML VIAL 40 MG IV (18:00)
[2024-08-20] MEDS: SODIUM CHLORIDE 3 % 500 ML 30 ML IV (18:01)
--- NOTE | 2024-08-20 18:34 | PC.NURSE ---
report called Oumou ROSS
[2024-08-20 18:36] LABS: HIV (1&2) Antibody Rapid NONREACTIVE (NONREACTIVE)
--- NOTE | 2024-08-20 18:38 | PC.NURSE ---
[facility] NOTIFIED OF TRANSFER TO [facility]
--- NOTE | 2024-08-20 19:49 | PEERSUPPORT ---
Peer Support Note Patient Information Patient Information: DOS: 08/20/2024 ? Reason: AUD/Ps Consult ? Pt shared he has been drinking for majority of his lifetime, 25 plus years. He started with beer then progressed to liquor daily. He says he did not realize what is was doing to him and now he is scared of dying. Pt is not one to go to doctors or take medicines he says he is stubborn like that. ? Ps provides empathetic listening to validate feelings without judgment of expressed emotions. Ps shared relevant personal stories to his issues to foster acceptance and hope that through connection to recovery and specialized treatment for underlying issues including health concerns can enhance his quality of life. ? Pt shares he is anxious about being transferred to [facility]. Ps encouraged him to ask questions as they arise to the providers and nurses for a better understanding. ? Ps acted as advocate to providers including said questions while at bedside with pt. ? Support System: Both very supportive Significant other Sister ? Plan of Action: Pt agrees to follow up calls from Ps to assist in finding the right form of treatment or support groups for his AUD following his transfer to for his priority concern being his cardio health. Thank you for allowing [facility] to assist in caring for the patient!?
[2024-08-22 09:09] LABS: HCV Ab Non Reactive (Non Reactive)
== END 2024-08-20 19:09 | disposition short-term general hospital (02) ==
LOC: ER 16:07 → 2ND 17:17 → ER 18:34
PROVIDERS: Internal Medicine Adolescent Medicine; Emergency Provider Emergency Medicine; PCP Internal Medicine
DX: I50.9 Heart failure, unspecified (principal); E87.1 Hypo-osmolality and hyponatremia; K70.10 Alcoholic hepatitis without ascites; R79.0 Abnormal level of blood mineral
CPT/HCPCS: 71045; 80050; 80053; 80320; 82140; 83036; 83690; 83735; 83880; 84100; 84436; 84443; 84484; 85025; 85610; 85730; 86803; 86850; 87389; 93005; 96361; 96365; 96375; 99285; G0480; J1940; J3411; J3475; J7030

== ENCOUNTER 2024-09-13 09:20 | Outpatient (CLI) | payer BC, SELFPAY ==
[2024-09-13 18:10] LABS: Basophils # 0.1 K/mm3 (0-0.2); Basophils % 1.2 % (0.1-2.0); Eosinophils # 0.1 K/mm3 (0.0-0.4); Eosinophils % 1.6 % (0.1-12.0); Hematocrit 55.1 % (42.0-52.0); Lymphocytes # 1.7 K/mm3 (0.7-4.5); Lymphocytes % 25.1 % (10-50); Mean Corpuscular HGB Conc 32.7 g/dL (31.8-35.4); Mean Corpuscular Hemoglobin 33.4 pg (27.0-31.2); Mean Corpuscular Volume 102.4 fl (80-94); Mean Platelet Volume 8.8 fl (7.4-10.4); Monocytes # 0.5 K/mm3 (0.1-1.0); Monocytes % 6.6 % (1.7-9.3); Neutrophils # 4.5 K/mm3 (1.8-7.8); Neutrophils % 65.6 % (37.0-80.0); Platelet Count 309 K/mm3 (142-424); Red Blood Count 5.38 M/mm3 (4.60-6.20); Red Cell Distribution Width 13.3 % (11.5-17.5); White Blood Count 6.9 K/mm3 (4.8-10.8)
[2024-09-13 18:55] LABS: Alanine Aminotransferase 48 U/L (12-78); Albumin Level 4.8 g/dl (3.5-5.0); Albumin/Globulin Ratio 1.4 (1.1-1.8); Alkaline Phosphatase 136 U/L (38-126); Aspartate Amino Transferase 58 U/L (17-59); Blood Urea Nitrogen 12 mg/dl (9-20); Calcium 9.7 mg/dl (8.4-10.2); Carbon Dioxide 30 mmol/L (22.0-30.0); Chloride 91 mmol/L (98-107); Estimated Glomerular Filt Rate 104 ml/min (>60); GFR (African American) 125 ML/MIN (>60); Globulin 3.4 g/dL (1.3-3.2); Glucose 57 mg/dl (74-100); Sodium 130 mmol/L (136-145); Total Protein,Serum 8.2 g/dl (6.3-8.2)
[2024-09-13 19:05] LABS: NT Pro Brain Natriuretic Pep. 2310 pg/mL (0-125)
[2024-09-13 19:45] LABS: Vitamin B12 548 pg/mL (239-931)
== END 2024-09-13 23:59 | disposition home or self-care (01) ==
LOC: LAB.DROPOF 09-14 12:07
PROVIDERS: PCP Internal Medicine; Visit Provider Internal Medicine
DX: I10 Essential (primary) hypertension (principal); F10.90 Alcohol use, unspecified, uncomplicated; I50.9 Heart failure, unspecified; E87.1 Hypo-osmolality and hyponatremia
CPT/HCPCS: 80053; 82607; 83735; 83880; 85025

== ENCOUNTER 2024-10-14 11:44 | Outpatient (CLI) | payer BC, SELFPAY ==
--- NOTE | 2024-10-14 11:48 | CT_ITS ---
APPROVED REPORT [facility] Pricing Consultant: CLINICAL INDICATION Chest Pain TECHNIQUE Image Acquisition: A 128 slice MDCT scanner (AppRedeema View) was used for data acquisition. A noncontrast coronary calcium scan was performed. A CT attenuation threshold of 130 Hounsfield units (HU) was used for the detection of calcium in contiguous voxels of 1 sq mm in area to be counted as individual lesions. Bolus tracking in the ascending aorta with a threshold of 180 HU was performed. Immediately afterwards, ECG synchronized cardiac CT was then performed from the cardiac base to apex using retrospective gating with ECG tube current modulation. A total of 85 mL of Isovue 370 mg/mL contrast medium was administered at 5 mL/sec followed by a saline flush using a biphasic injection protocol. A tube voltage of 120 KVp was used. The patient received the following medications prior to the cardiac CT. 75 mg of oral metoprolol 15 mg of oral ivabradine 0.8 mg of sublingual nitroglycerin The average heart rate at the time of acquisition was 57 bpm and regular. Image Reconstruction Transaxial images were reconstructed at 0.67 mm slide thickness. Data was reviewed interactively on an advanced workstation capable of 2 and 3-dimensional displays in all conventional reconstruction formats, including multiplanar reformations, maximum intensity projections, curved multiplanar reformations, and volume rendered reconstructions. When applicable, selected routine images describing the relevant coronary anatomy and pathology were saved and sent to PACS. Complications None Technical Quality Overall image quality was good. Coronary artery opacification was adequate. Total DLP (Dose-Length Product) is 1617.6 mGy-cm. The reported value represents the total of one or more individual components during the CT acquisition of this date and at this time, and as such, the same value may appear in more than one CT report depending on the interpreting/reporting physicians. COMPARISON None FINDINGS CT Coronary Calcium Scoring LMA (Left Main Artery) = 0 LAD (Left Anterior Descending) = 0 LCX (Left Coronary Circumflex) = 0 RCA (Right Coronary Artery) = 0 Total Calcium Score = 0 using the AJ-130 method. The interpretation of the calcium heart score is based on the following continuum*: 0 = no calcified plaque detected (risk of coronary artery disease is very low ??? less than 5%) 1-10 = calcium detected in extremely minimal levels (risk of coronary diseases is still low ??? less than 10%) 11-100 = mild levels of plaque detected with certainty (mild or minimal narrowing of heart arteries is likely) 101-400 = definite,at least moderate levels of plaque detected (relatively high risk of a heart attack within 3-5 years) >401-999 = extensive levels of plaque detected (high risk of heart attack, high levels of vascular disease are present, high likelihood of at least one significant coronary narrowing) *The calcium heart score quantifies the burden of coronary calcification/plaque in the coronary arteries. The calcium heart score is not able to evaluate the presence or burden of non-calcified (i.e. soft) plaque. There is no identifiable calcification in the aortic valve, mitral annulus or mitral valve, pericardium, or myocardium. Coronary CT Angiography The coronary arterial system is right dominant. Quantitative Stenosis Grading: Left Main (LM): The left main originates normally from the left sinus of Valsalva. The LM bifurcates into the left anterior descending artery and left circumflex artery. The LM is patent with no evidence of atherosclerosis. Left Anterior Descending (LAD) and Diagonal Branches: The LAD gives off 3 diagonal branch(es). The LAD and its branches are patent with no evidence of atherosclerosis. There is no evidence of LAD-myocardial bridge. Left Circumflex (LCX) and Obtuse Marginals (OM): The LCX gives off 2 Obtuse Marginal (OM) branch(es). The LCX and its branches are patent with no evidence of atherosclerosis. Right Coronary Artery (RCA): The RCA originates normally from the right sinus of Valsalva. The RCA gives off a posterior descending artery (PDA) and posterolateral (PL) branches. The RCA and its branches are patent with no evidence of atherosclerosis. Non-Coronary Cardiac Findings: Analysis of the left ventricular (LV) structure and function was performed after 3-D reconstruction of the LV from axial images, with user-corrected automatic contouring for assessment of LV volumes and user-defined reconstruction from oblique planes for measurement of 3-D cardiac structure and function. -The left ventricle systolic function is severely reduced. -There is no left atrial appendage filling defect. Two right pulmonary veins and two left pulmonary veins drain normally into the left atrium. -No pericardial thickening or calcification. -Central and branch pulmonary arteries in the [id number]-[id number] are unremarkable. -Thoracic aorta within the visualized thoracic aortic-branches in the [id number]-vy-irmz is unremarkable. -Trivial circumferential pericardial effusion is present. Extracardiac Structures No significant extra-cardiac findings. Note, however, that this study is focused on the cardiac findings. IMPRESSION -Absence of coronary calcification with an Agatston score = 0 using the AJ-130 method. -No evidence of significant flow-limiting atherosclerosis of the coronary arteries. -No evidence of myocardial bridges or coronary anomalies. -CAD-RADS 0. Management recommendations per ACC/AHA guidelines*, as clinically appropriate. -The LV systolic function is severely reduced. Cardiac MRI (cardiomyopathy protocol) is recommended for evaluation of non-ischemic etiologies of cardiomyopathy. -Trivial, circumferential pericardial effusion is present. Correlation with new or recent TTE is suggested. *Recommendations: CAD RADS 0: Reassurance. Consider non-atherosclerotic causes of chest pain. CAD RADS 1: Consider non-atherosclerotic causes of chest pain. Consider preventive therapy and risk factor modification. CAD RADS 2: Consider non-atherosclerotic causes of chest pain. Consider preventive therapy and risk factor modification, particularly for patients with nonobstructive plaque in multiple segments. CAD RADS 3: Consider further functional testing. Consider symptom-guided anti-ischemic and preventive pharmacotherapy as well as risk factor modification per published guideline statements. CAD RADS 4A: Consider further functional testing or invasive coronary angiography with revascularization per published guideline statements. Consider symptom-guided anti-ischemic and preventive pharmacotherapy as well as risk factor modification per published guideline statements. CAD RADS 4B: Invasive coronary angiography recommended with revascularization per published guideline statements. Consider symptom-guided anti-ischemic and preventive pharmacotherapy as well as risk factor modification per published guideline statements. CAD RADS 5: Consider invasive angiography and/or viability assessment with revascularization per published guideline statements. Consider symptom-guided anti-ischemic and preventive pharmacotherapy as well as risk factor modification per published guideline statements. CRITICAL RESULT None COMMUNICATION Per this written report The coronary and cardiac findings of this CCTA were reviewed, reported, and signed by Alvin Dominguez MD (Gauge And Instrument Inspector) Conclusion Electronically signed by : Mary Dominguez MD 10/17/2024 23:43:59
--- NOTE | 2024-10-14 11:48 | CA_ITS ---
APPROVED REPORT EXAM: Comprehensive 2D, Doppler, and color-flow Echocardiogram Director Special Education: Toyin Chavez RT(R) Ht: 5 ft 9 in Wt: 150lbs BSA: 1.83 BP: 112/79 mmHg Indications: CP, limited echo to assess EF, CHF, CM, abn EKG, etoh abouse, EF 14% 08/2024 at then reassessed at 20% weeks later. 2D Dimensions LVEF (Caba's) 22.70 % M: 52 - 72 LV Volume 154.40 mL M: 62 - 150 LV Volume Index 84.4 mL/m2 M: 34 - 74 EF AP4 29.70 % EF AP2 16.4 % EF BP 22.7 % GL Strain -3.1 % M-Mode Dimensions RVDd 2.11 cm (0.9-2.6) LVDd 6.29 cm (3.5-5.7) LVDs 5.82 cm (3.5-5.7) IVSd 0.82 cm (0.6-1.1) PWd 0.61 cm (0.6-1.1) EF (Teich) 16.30% FS 7.50% EDV (Teich) 200.50 mL ESV (Teich) 167.90 mL Other Information Study Quality: Fair Conclusion This is a limited TTE to evaluate for LV systolic function. Limited windows were obtained. The left ventricle is moderately dilated. There is normal LV wall thickness. There is severe reduction global LV systolic function. No regional wall motion abnormalities are noted. LVEF is 20%. The right ventricle is mildly dilated. There is mild reduction in RV systolic function. In the setting of severe reduction in LV systolic function, further evaluation with cardiac MRI (cardiomyopathy protocol) is suggested to evaluate for nonischemic etiologies of cardiomyopathy. Electronically signed by : Mary Dominguez MD 10/18/2024 00:25:02
--- OUTSIDE RECORDS SUMMARY | 2024-10-14 11:48 | XMS_ITS | Encounter Summary ---
Author Organization Healthcare Address [address] [place] [address] Care Team Providers Care Primary Care Coordinator Name Role Phone Daria Larson RN Unavailable Unavailable Jhoan Syed DO Primary Care Provider [phone] Encounter Details Date Type Department Care Team (Late st Contact Info) Description 09/20/2024 Telephone [facility] [address] [place] [address] Ernestina Boyd, RN Social History Tobacco Use Types Packs/Day Years Used Date Smoking Tobacco: Every Day Cigarettes 0.3 35 Smokeless Tobacco: Current Chew Alcohol Use Standard Drinks/Week Comments Not Currently 84 (1 standard drink = 0.6 oz pure alcohol) last drink last night 1.5 beer; /half pint to pint daily/every other day Humiliation, Afraid, Rape, and Kick questionnair e Answer Date Recorded Within the last year, have y ou been afraid of your partner or ex-partner? No 08/24/2024 Within the last year, have y ou been humiliated or emotionally abused in other ways by your partner or ex-partner? No Within the last year, have y ou been kicked, hit, slapped, or otherwise physically hurt by your partner or ex-partner? No 08/24/2024 Within the last year, have y ou been raped or forced to have any kind of sexual activity by your partner or ex-partner? No 08/24/2024 Hunger Vital Sign Answer Date Recorded Within the past 12 months, y ou worried that your food would run out before you got the money to buy more. Never true 08/24/20 24 Within the past 12 months, t he food you bought just didn't last and you didn't have money to get more. Never true 08/24/2024 PRAPARE - Transportation Answer Date Re corded In the past 12 months, has l ack of transportation kept you from medical appointments or from getting medications? No 08/10 In the past 12 months, has l ack of transportation kept you from meetings, work, or from getting things needed for daily living? No 08/24/2024 Housing Stability Vital Sign Answer Josiah e Recorded In the last 12 months, was t here a time when you were not able to pay the mortgage or rent on time? No 08/24/2024 In the last 12 months, how many places have you lived? 1 08/24/2024 In the last 12 months, was t here a time when you did not have a steady place to sleep or slept in a snf (including now)? No 08/24/2024 CAGE ASSESSMENT Answer Date Recorded Cage unable to access Not on file 08/20/2024 Maximum number of drinks you had on a given occasion in the last month? 5 or more drinks 08/20/2024 How many alcoholic Beverages do you typically drink in a week? 15 or more per week 08/20/2024 Have you ever felt you shoul d CUT down on your drinking? 0 08/20/2024 Have you been ANNOYED by peo ple criticizing your drinking? 0 08/20/2024 Have you felt GUILTY about your drinking? 0 08/20/2024 Have you had a drink first t margarito in the morning (EYE-CONCRETE FINISHER APPRENTICE) to steady your nerves or to get rid of a hangover? 0 08/20/2024 CAGE Questionnaire Score 0 024 Utilities Answer Date Recorded In the past 12 months has th e [employer], gas, oil, or water company threatened to shut off services in your home? No 08/24/2024 Sex and Gender Information Value Date Recorded Sex Assigned at Not on file Legal Sex Male 8:44 PM EDT Gender Identity Not on file Sexual Orientation Not on file documented as of this encounter Miscellaneous Notes * Telephone Encounter - Ernestina Boyd, RN - 09/20/2024 4:31 PM EST Called pt's sister to update on pt's lab results and requests to have them rechecked at his cardiology appt 09/24, updated and aware that lab orders have been placed by Mai Lyons APRN, instructed to remind/request cardiology office staff for them to be collected. Pt's sister verbalized understanding, states pt has been eating and drinking well, no c/o SOA or worsening swelling at this time. Denies questions/concerns, no further needs at this time. documented in this encounter Plan of Treatment Upcoming Encounters Date Type Department Care Team (Late st Contact Info) Description 02/08/2025 10:00 AM EDT Appointment Medical Office Building Cardiac Diagnostic Testing Medical Office Building Echo Lab [address], [address] [place] [address] 02/08/2025 11:40 AM EDT Office Visit [facility] [place] [address], [address] [place] [address] Jean Jacome MD [address] [place] [phone] documented as of this encounter Visit Diagnoses Not on filedocumented in this encounter Additional Health Concerns Assessment Noted Time A Body Mass Index follow-up plan has been documented for the patient 08/31/2024 12:54 PM EDT documented as of this encounter Care Teams Primary Care Coordinator Relationship Specialty Start Date End Date Jhoan Syed DO [address] [place] [address] PCP - General 08/31/24 Daria Larson, RN TCM Nurse 08/27/24 09/26/24 documented as of this encounter
--- OUTSIDE RECORDS SUMMARY | 2024-10-14 11:48 | XMS_ITS | Encounter Summary ---
Author Organization Healthcare Address [address] [place] [address] Care Team Providers Care Fiberglass Container Winding Operator Name Role Phone Daria Larson RN Unavailable Unavailable Jhoan Syed DO Primary Care Provider [phone] Encounter Details Date Type Department Care Team (Late st Contact Info) Description 09/16/2024 Telephone [facility] [address] [place] [address] Serena, February R, BLACKSMITH HELPER [address] [address] Social History Tobacco Use Types Packs/Day Years [...] place to sleep or slept in a [place] (including now)? No 08/24/2024 CAGE ASSESSMENT Answer [...] drink first t margarito in the morning (EYE-BRICK KILN WORKER) to steady your nerves or to get rid of a hangover? 0 08/20/2024 CAGE Questionnaire Score 0 024 Utilities Answer Date Recorded In the past 12 months has th e electric, gas, oil, or water company threatened to shut off services in your home? No 08/24/2024 Sex and Gender Information Value Date Recorded Sex Assigned at Not on file Legal Sex Male 8:44 PM EDT Gender Identity Not on file Sexual Orientation Not on file documented as of this encounter Miscellaneous Notes * Telephone Encounter - Ernestina Boyd RN - 09/20/2024 10:00 AM EST Results faxed to clinic from Dr Syed's office. Lab results uploaded to pt chart. Provider updated and updated of abnormal labs noted. * Telephone Encounter - Ernestina Boyd RN - 09/17/2024 4:46 PM EST Called and left a message to Jhoan Syed MD's office to request lab results to be faxed- left callback number and fax number to clinic, will continue to follow. Attempted to call pt to update in process of receiving labs- no answer, left voicemail that request is in process and clinic call back number. * Telephone Encounter - Dara Parikh - 09/16/2024 3:40 PM EST Patient Phone Message Reason for Call: pt is calling to ask if his PCP sent over his lab work, please call to discuss. Thanks. Best contact number and optimal time of day to reach caller: [phone] Note: Please do not reply to this message. Follow-up communication and further actions as a result of this message need to be communicated with the patient directly, if the patient is not active onMyChart. If the patient is active on MyChart, they will receive notification of the communication/outcome via [employer]Flow[employer]. documented in this encounter Plan of Treatment Upcoming Encounters Date Type Department Care Team (Late st Contact Info) Description 02/08/2025 10:00 AM EDT Appointment Medical Office Building Cardiac Diagnostic Testing Medical Office Building Echo Lab [address] [facility], [address] [place] [phone] 02/08/2025 11:40 AM EDT Office Visit [facility] [place] [address] [facility], [address] [place] [phone] Jean Jacome MD [address] [place] [phone] documented as of this encounter Visit Diagnoses Not on filedocumented in this encounter Additional Health Concerns Assessment Noted Time A Body Mass Index follow-up plan has been documented for the patient 08/31/2024 12:54 PM EDT documented as of this encounter Care Teams Fiberglass Container Winding Operator Relationship Specialty Start Date End Date Jhoan Syed DO [address] [place] [id number] PCP - General 08/31/24 Daria Larson, RN TCM Nurse 08/27/24 09/26/24 documented as of this encounter
--- OUTSIDE RECORDS SUMMARY | 2024-10-14 11:48 | XMS_ITS | Encounter Summary ---
Author Organization Healthcare Address [address] [place] [address] Care Team Providers Care Commercial Portfolio Manager Name Role Phone Pcp, No Primary Care Provider Unavailabl e Encounter Details Date Type Department Care Team (Latest Contact Info) Description 08/21/2024 Travel Social History Tobacco Use Types Packs/Day Years Used Date Smoking Tobacco: Every Day Cigarettes Smokeless Tobacco: Current Alcohol Use Standard Drinks/Week Comments Yes 84 (1 standard drink = 0.6 oz pure alcohol) half pint to pint daily/every other day CAGE ASSESSMENT Answer Date Recorded Cage unable [...] drink first t margarito in the morning (EYE-DIRECTOR OF INFORMATICS) to steady your nerves or to get rid of a hangover? 0 08/20/2024 CAGE Questionnaire Score 0 024 Sex and Gender Information Value Date Recorded Sex Assigned at Not on file Legal Sex Male 8:44 PM EDT Gender Identity Not on file Sexual Orientation Not on file documented as of this encounter Plan of Treatment Upcoming Encounters Date Type Department Care Team (Late st Contact Info) Description 02/08/2025 10:00 AM EDT Appointment Medical Office Building Cardiac Diagnostic Testing Medical Office Building Echo Lab [address] [facility], [address] [place] [phone] 02/08/2025 11:40 AM EDT Office Visit [facility] [place] [address] [facility], [address] [place] [phone] Jean Jacome MD [address] [place] [address] documented as of this encounter Visit Diagnoses Not on filedocumented in this encounter Additional Health Concerns Assessment Noted Time A Body Mass Index follow-up plan has been documented for the patient 08/26/2024 2:19 PM EDT documented as of this encounter Care Teams Commercial Portfolio Manager Relationship Specialty Start Date End Date Pcp, No [address] [place] [address] PCP - General Family Medicine 08/20/24 08/30/24 documented as of this encounter
--- OUTSIDE RECORDS SUMMARY | 2024-10-14 11:48 | XMS_ITS | Clinical Summary ---
Author Organization [facility] Address [address] [place] [address] Care Team Providers Care Senior Sales Associate Name Role Phone Jhoan Syed Primary Care Provider [phone] Allergies Active Allergy Reactions Criticality Noted Date Comments Cephalexin Shortness of breath,Swelling High 08/21/2024 Pt was prescribed 08/02/24, said took a dose and swole up and felt short of breath Medications * This document contains information received from the source organization and may not represent a complete record from that organization. acetaminophen (Tylenol) 500 MG tablet Take 1 tablet (500 mg) by mouth every 6 (six) hours if needed for pain. Active spironolacton e (Aldactone) 25 MG tablet Take 1 tablet (25 mg) by mouth 1 (one) time each day. 30 each 1 08/26/20 24 024 Active hydrOXYzine pamoate (Vistaril) 50 MG capsule Take 1 capsule (50 mg) by mouth every 6 (six) hours if needed for anxiety. 30 capsule 08/26/20 24 Active traZODone (Desyrel) 50 MG tablet Take 1 tablet (50 mg) by mouth at night if needed for sleep. 30 tablet 08/26/20 24 Active dapagliflozin (Farxiga) 10 MG tabletIndicat ions:Left Systolic Heart Failure Take 1 tablet (10 mg) by mouth 1 (one) time each day. 30 tablet 1 08/26/20 24 024 Active folic acid (Folvite) 1 MG tablet Take 1 tablet (1 mg) by mouth 1 (one) time each day. 30 tablet 1 08/26/20 24 Active thiamine (Vitamin B-1) 100 MG tablet Take 1 tablet (100 mg) by mouth 1 (one) time each day. 30 tablet 1 08/26/20 24 Active Additional Information Patient not taking.Reported on 09/28/2024 metoprolol succinate XL (Toprol-XL) 50 MG 24 hr tablet Take 1 tablet (50 mg) by mouth 1 (one) time each day. Do not crush or chew. 30 tablet 11 09/28/20 Active bumetanide (Bumex) 1 MG tablet Take 1 tablet (1 mg) by mouth 1 (one) time each day. 30 tablet 09/28/20 24 Active sacubitril-va lsartan (Entresto) 24-26 MG tablet Take 1 tablet by mouth 2 (two) times a day. 60 tablet 11 10/01/20 Active lisinopril 5 MG tablet Take 1 tablet (5 mg) by mouth 1 (one) time each day. 30 tablet 1 08/26/20 24 Discontinued(Al ternate therapy) metoprolol succinate XL (Toprol-XL) 25 MG 24 hr tablet Take 0.5 tablets (12.5 mg) by mouth 1 (one) time each day. Do not crush or chew. 15 tablet 1 08/26/20 24 Discontinued bumetanide (Bumex) 1 MG tablet Take 1 tablet (1 mg) by mouth 2 (two) times a day. 60 tablet 08/31/20 24 024 Discontinued sacubitril-va lsartan (Entresto) 24-26 MG tablet Take 1 tablet by mouth 2 (two) times a day. 60 tablet 11 10/01/20 24 024 Discontinued(Re order) Active Problems Problem Noted Date Diagnosed Date At high risk for falls 08/31/2024 Resolved Problems Problem Noted Date Diagnosed Date Resolved Date Hyponatremia 08/20/2024 08/26/2024 Encounters * This document contains information received from the source organization and may not represent a complete record from that organization. Date Type Department Care Team Description 10/04/2024 Telephone [facility] [address] [place] [address] Aydee Rolon, RN 09/30/2024 Refill [facility] [address] [place] [address] Aydee Rolon, RN 09/28/2024 11:00 AM EST Office Visit [facility] [address] [facility] [facility], [address] [place] [address] Jean Jacome MD Hyponatremia; Alcohol abuse; Congestive heart failure, unspecified HF chronicity, unspecified heart failure type (CMS/HCC) 09/28/2024 Travel 09/27/2024 Telephone [facility] [address] [facility] [place] [address] Jean Jacome MD 09/22/2024 Telephone [facility] [address] [facility] [place] [phone] Jean Jacome MD 09/22/2024 Telephone [facility] [address] [facility] [address] [phone] Jose Carlos Dempsey MD 09/21/2024 Telephone [facility] [address] [facility] [phone] Jean Jacome MD 09/20/2024 Telephone [facility] [address] [place] [address] Ernestina Byod, CODY 09/20/2024 Telephone [facility] [address] [facility] [phone] Jean Jacome MD 09/20/2024 Orders Only [facility] [address] [place] [address] Mai Lyons R, CHARGEMASTER ANALYST Congestive heart failure, unspecified HF chronicity, unspecified heart failure type (CMS/HCC) (Primary Dx) 09/20/2024 Telephone [facility] [address] [facility] [place] [phone] Jean Jacome MD 09/16/2024 Telephone [facility] [address] [place] [address] February, CHARGEMASTER ANALYST 09/02/2024 Orders Only [facility] [address] [place] [address] February, CHARGEMASTER ANALYST Congestive heart failure, unspecified HF chronicity, unspecified heart failure type (CMS/HCC) (Primary Dx) 09/01/2024 Telephone [facility] [address] [place] [address] February, CHARGEMASTER ANALYST 09/01/2024 Telephone [facility] [address] [place] [address] February, CHARGEMASTER ANALYST 08/31/2024 12:40 PM EDT Office Visit [facility] [address] [place] [address] February, CHARGEMASTER ANALYST Congestive heart failure, unspecified HF chronicity, unspecified heart failure type (CMS/HCC) (Primary Dx); Hyponatremia; Alcohol abuse; Encounter for tobacco use cessation counseling; Healthcare maintenance; Dyspnea on exertion; Anasarca 08/31/2024 Telephone [facility] [address] [place] [address] February, CHARGEMASTER ANALYST 08/31/2024 Orders Only [facility] [address] [place] [address] February, CHARGEMASTER ANALYST 08/31/2024 Travel 08/31/2024 Patient Outreach POPULATION [facility] [address] [place] [address] Daria Larson RN TCM Call 08/30/2024 Patient Outreach POPULATION [address] [address] Daria Larson RN TCM Call 08/27/2024 Patient Outreach [facility] [address] [place] [phone] Daria Larson RN TCM Call 08/24/2024 Travel 08/23/2024 Travel 08/21/2024 Travel 08/20/2024 Travel 08/20/2024 - 08/20/2024 6:07 PM EDT [facility] [address] [place] [address] Discharge Disposition: ED Reg Error 08/20/2024 Orders Only External Location [address] [place] [phone] Provider, External 08/02/2024 8:09 PM EDT - 08/02/2024 10:03 PM EDT [facility] [address] [place] [phone] Carolina Perry MD Laceration of right index finger without foreign body without damage to nail, initial encounter (Primary Dx) Discharge Disposition: Home or Self Care 08/02/2024 Travel from Last 3 Months Immunizations Name Administration Dates Next Due Tdap 08/02/2024 Social History Tobacco Use Types Packs/Day Years Used Date Smoking Tobacco: Every Day Cigarettes 0.3 35 Smokeless Tobacco: Current Chew Tobacco Cessation:Ready to Q uit: Not Asked; Counseling Given: Not Answered Alcohol Use Standard Drinks/Week Comments Not Currently [...] drink first t margarito in the morning (EYE-CLINICAL CARE COORDINATOR) to steady your nerves or to get [...] on file Sexual Orientation Not on file Last Filed Vital Signs Vital Sign Reading Time Taken Comments Blood Pressure 113/80 09/28/2024 10:39 AM EST Pulse 95 09/28/2024 10:39 AM EST Temperature 36.4 ??C (97.5 ??F) 08/31/2024 12:01 PM E DT Respiratory Rate 18 08/31/2024 12:01 PM EDT Oxygen Saturation 100% 09/28/2024 10:39 AM EST Inhaled Oxygen Concentration - - Weight 64.2 kg (141 lb 8.6 oz) 09/28/2024 10:39 AM EST Height 175.3 cm (5' 9 ) 09/28/2024 10:39 AM EST Body Mass Index 20.9 09/28/2024 10:39 AM EST Plan of Treatment Upcoming Encounters Date Type Department Care Team (Late st Contact Info) Description 02/08/2025 10:00 AM EDT Appointment Medical Office Building Cardiac Diagnostic Testing Medical Office Building Echo Lab [address] [facility], [address] [place] [address] 02/08/2025 11:40 AM EDT Office Visit [facility] [address] [facility], [address] [place] [address] Jean Jacome MD [address] [place] [phone] Health Maintenance Due Date Last Done Comments [facility]-Depression Screening 1976 [facility]-Diabetes: Hemoglobin A1C 1976 [facility]-/Child/Adol SDOH Screenings 1976 [id number] Vaccine (#1) 1981 [facility]-Pneumococcal Vaccine: Pediatrics (0 to 5 Years) and At-Risk Patients (6 to 64 Years) (1 of 2 - PCV) 1982 Diabetes: Dental Exam 1986 [facility]-Hepatitis A Vaccines (1 of 2 - Risk 2-dose series) 1995 [facility]-Hepatitis B Vaccines (1 of 3 - 19+ 3-dose series) 1995 [facility]-Zoster Vaccines (1 of 2) 1995 CT Colonography 2021 Colonoscopy 2021 FIT-DNA 2021 FIT 2021 FOBT 2021 Sigmoidoscopy 2021 [facility]-Colorectal Cancer Screening 2021 [facility]-Influenza Vaccine (#1) 2024 [facility]- SDOH Screenings 02/22/2025 [facility]-Adult SDOH Screenings 02/22/2025 08/24/2024 [facility]-DTaP,Tdap,and Td Vaccine s (2 - Td or Tdap) 08/02/2034 08/02/2024 [facility]-RSV Vaccine: 60+ Years o r (1 - 1-dose 75+ series) 2051 [facility]-HIV Screening Completed 08/02/2024, 08/02/2024 [facility]-Hepatitis C Screening Completed 08/02/2024 [facility]-HIB Vaccines Aged Out No longer e ligible based on patient's age to complete this topic [facility]-HPV Vaccines Aged Out No longer e ligible based on patient's age to complete this topic [facility]-IPV Vaccines Aged Out No longer e ligible based on patient's age to complete this topic [facility]-Rotavirus Vaccines Aged Out No lo nger eligible based on patient's age to complete this topic Procedures Procedure Name Priority Date/Time Associated Diagnosis Comments N-TERMINAL PROBNP, PLASMA Routine 09/28/2024 5:06 PM EST Congestive heart failure, unspecified HF chronicity, unspecified heart failure type (CMS/HCC) FERRITIN, SERUM Routine 09/28/2024 4:46 PM EST Congestive heart failure, unspecified HF chronicity, unspecified heart failure type (CMS/HCC) IRON & TOTAL IRON BINDING CAPACITY, PLASMA (INCLUDES TRANSFERRIN) Routine 09/28/2024 4:43 PM EST Congestive heart failure, unspecified HF chronicity, unspecified heart failure type (CMS/HCC) COMPREHENSIVE METABOLIC PANEL, PLASMA Routine 09/28/2024 4:43 PM EST Alcohol abuse Congestive heart failure, unspecified HF chronicity, unspecified heart failure type (CMS/HCC) CBC W/O DIFFERENTIAL Routine 09/28/2024 12:17 PM EST Congestive heart failure, unspecified HF chronicity, unspecified heart failure type (CMS/HCC) N-TERMINAL PROBNP, PLASMA Routine 08/31/2024 1:15 PM EDT Hyponatremia COMPREHENSIVE METABOLIC PANEL, PLASMA Routine 08/31/2024 1:15 PM EDT Hyponatremia CBC W/O DIFFERENTIAL Routine 08/31/2024 1:15 PM EDT Hyponatremia RENAL FUNCTION PANEL, PLASMA Routine 08/26/2024 4:22 AM EDT RENAL FUNCTION PANEL, PLASMA Routine 08/25/2024 5:45 AM EDT BASIC METABOLIC PANEL, PLASMA Pending Discharge 08/24/2024 2:15 AM EDT N-TERMINAL PROBNP, PLASMA Pending Discharge 08/24/2024 2:15 AM EDT XR CHEST 1 VIEW Routine 08/24/2024 1:20 AM EDT ECHO, ADULT TRANSTHORACIC COMPLETE Routine 08/23/2024 12:04 PM EDT MAGNESIUM, PLASMA Routine 08/23/2024 3:0 3 AM EDT N-TERMINAL PROBNP, PLASMA Routine 08/23/2024 3:03 AM EDT COMPREHENSIVE METABOLIC PANEL, PLASMA Routine 08/23/2024 3:03 AM EDT CBC WITH AUTO DIFFERENTIAL Routine 08/23/2024 3:03 AM EDT PHOSPHORUS, PLASMA Routine 08/22/2024 4: 53 AM EDT MAGNESIUM, PLASMA Routine 08/22/2024 4:5 3 AM EDT COMPREHENSIVE METABOLIC PANEL, PLASMA Routine 08/22/2024 4:53 AM EDT CBC WITH AUTO DIFFERENTIAL Routine 08/22/2024 4:53 AM EDT POCT GLUCOSE METER UNSOLICITED RESULTS Routine 08/21/2024 5:31 PM EDT US LIVER SCREEN Routine 08/21/2024 10:53 AM EDT SODIUM, PLASMA Timed 08/21/2024 8:19 AM EDT EXTRA TUBE LIGHT GREEN TOP Routine 08/21/2024 6:34 AM EDT EXTRA TUBES Routine 08/21/2024 6:34 AM EDT SODIUM, PLASMA Timed 08/21/2024 6:34 AM EDT EXTRA TUBE LAVENDER TOP Routine 08/21/2024 1:49 AM EDT EXTRA TUBE LIGHT GREEN TOP Routine 08/21/2024 1:49 AM EDT EXTRA TUBE LIGHT BLUE TOP Routine 08/21/2024 1:49 AM EDT EXTRA TUBES Routine 08/21/2024 1:49 AM EDT SODIUM, PLASMA Timed 08/21/2024 1:49 AM EDT CORTISOL Routine 08/21/2024 1:49 AM EDT PROTHROMBIN TIME(PT) / INR Routine 08/21/2024 1:49 AM EDT SODIUM, PLASMA Add-On 08/20/2024 10:46 PM EDT TROPONIN T, HIGH SENSITIVITY, 2 HOUR, PLASMA Timed 08/20/2024 10:46 PM EDT SODIUM, URINE, RANDOM STAT 08/20/2024 10:05 PM EDT OSMOLALITY, URINE STAT 08/20/2024 10:05 PM EDT XR CHEST 1 VIEW STAT 08/20/2024 8:51 PM EDT OSMOLALITY, SERUM Add-On 08/20/2024 8:3 8 PM EDT LIPASE, PLASMA STAT 08/20/2024 8:38 PM EDT MAGNESIUM, PLASMA STAT 08/20/2024 8:3 8 PM EDT ETHYL ALCOHOL PLASMA STAT 08/20/2024 8:38 PM EDT FREE T4, PLASMA STAT 08/20/2024 8:38 PM EDT TSH STAT 08/20/2024 8:38 PM EDT N-TERMINAL PROBNP, PLASMA STAT 08/20/2024 8:38 PM EDT TROPONIN T, HIGH SENSITIVITY, 0 HOUR, PLASMA, REFLEX TO 2 HOUR STAT 08/20/2024 8:38 PM EDT COMPREHENSIVE METABOLIC PANEL, PLASMA STAT 08/20/2024 8:38 PM EDT CBC WITH AUTO DIFFERENTIAL STAT 08/20/2024 8:38 PM EDT ECG ADULT STAT 08/20/2024 8:34 PM EDT URINE SHAW PANEL STAT 08/20/2024 8:34 PM EDT URINALYSIS WITH REFLEX MICROSCOPIC STAT 08/20/2024 8:34 PM EDT URINALYSIS WITH REFLEX MICROSCOPIC STAT 08/20/2024 8:34 PM EDT XR OUTSIDE IMAGES 08/20/2024 3:4 4 PM EDT XR HAND RIGHT 3+ VIEWS STAT 8:21 PM EDT ED HIV 1/2 ANTIBODY/ANTIGEN SCREEN WITH REFLEX TO HIV I/II DIFFERENTIATION STAT 08/02/2024 8:08 PM EDT ED PROTOCOL HIV 1/2 ANTIBODY/ANTIGEN SCREEN W/REFLEX TO HIV 1/2 ANTIBODY DIFFERENTIATION STAT 08/02/2024 8:08 PM EDT HEPATITIS C ANTIBODY - ED W/REFLEX TO HCV QUANT PCR STAT 08/02/2024 8:08 PM EDT APTT STAT 08/02/2024 8:08 PM EDT PROTHROMBIN TIME(PT) / INR STAT 08/02/2024 8:08 PM EDT CBC WITH AUTO DIFFERENTIAL STAT 08/02/2024 8:08 PM EDT COMPREHENSIVE METABOLIC PANEL, PLASMA STAT 08/02/2024 8:08 PM EDT HC APPLICATION DERMABOND Routine 08/02/2024 6:26 PM EDT OH RESUPERF WND BODY <2.5CM Routine 08/02/2024 6:26 PM EDT from Last 3 Months Results * (ABNORMAL) N-Terminal Probnp (09/28/2024 5:06 PM EST) Only the most recent of5 resultswithin the time period is included. N-Terminal, PROBNP, Plasma 1,457(H) 0 - 449 pg/mL 09/28/2024 5:06 PM EST [facility] Blood Venous blood specimen / Unknown 09/28/2024 12:26 PM EST us Jean Jcaome MD LAB BLOOD ORDERABLES Final Res ult Performing Organization Address City/[facility]/ZIP Co de Phone Number [facility] [address] [place] [address] * Ferritin (09/28/2024 4:46 PM EST) Ferritin, Serum 199 20 - 400 ng/mL 09/28/2024 4:46 PM EST [facility] Blood Venous blood specimen / Unknown 09/28/2024 12:26 PM EST Jean Jacome MD LAB BLOOD ORDERABLES Final Res ult Performing Organization Address [facility] Co de Phone Number [facility] [address] [place] [address] * Iron & Total Iron Binding Capacity, Plasma (Includes Transferrin) (09/28/2024 4:43 PM EST) Pathologist [facility] Iron, Plasma 127 50 - 170 ug/dL 09/28/2024 4:43 PM EST [facility] Transferrin, Plasma 277 200 - 360 mg/dL 09/28/2024 4:43 PM EST [facility] Total Iron Binding Capacity, Plasma 346 240 - 450 ug/mL 09/28/2024 4:43 PM EST [facility] Transferrin Saturation 37 14 - 50 % 09/28/2024 4:43 PM EST [facility] Blood Venous blood specimen / Unknown 09/28/2024 12:26 PM EST Jean Jacome MD LAB BLOOD ORDERABLES Final Res ult Performing Organization Address City/[facility]/ZIP Co de Phone Number [facility] [address] [place] [address] * (ABNORMAL) Comprehensive metabolic panel (09/28/2024 4:43 PM EST) Only the most recent of6 resultswithin the time period is included. Glucose, Plasma 111(H) 74 - 99 mg/dL 09/28/2024 4:43 PM EST [facility] BUN, Plasma 7 7 - 21 mg/dL 09/28/2024 4:43 PM EST [facility] Creatinine, Plasma 0.83 0.70 - 1.20 mg/dL 09/28/2024 4:43 PM EST [facility] BUN/Creatinine Ratio 8 09/28/2024 4:[address] [facility] Sodium, Plasma 134(L) 136 - 145 mmol/L 09/28/2024 4:[address] [facility] Potassium, Plasma 4.2 3.6 - 4.9 mmol/L 09/28/2024 4:[address] [facility] Chloride, Plasma 93(L) 97 - 107 mmol/L 09/28/2024 4:[address] [facility] CO2, Plasma 27 22 - 29 mmol/L 09/28/2024 4:[address] [facility] Anion Gap 14 6 - 16 mmol/L 09/28/2024 4:[address] [facility] Total Calcium, Plasma 9.6 8.9 - 10.2 mg/dL 09/28/2024 4:[address] [facility] Total Protein 8.1(H) 6.3 - 7.9 g/dL 09/28/2024 4:[address] [facility] Albumin, Plasma 4.5 3.5 - 5.2 g/dL 09/28/2024 4:[address] [facility] AST, Plasma 31 10 - 50 U/L 09/28/2024 4:[address] [facility] ALT, Plasma 22 10 - 50 U/L 09/28/2024 4:[address] [facility] Alkaline Phosphatase, Plasma 79 40 - 115 U/L 09/28/2024 4:[address] [facility] Total Bilirubin, Plasma 0.5 0.2 - 1.1 mg/dL 09/28/2024 4:[address] [facility] eGFRcr 108.6 mL/min/1.7 3m*2 09/28/2024 4:[address] [facility] Comment:Reported eGFRcr in m L/min/1.73m2 is based the CKD-EPI 2020 equation that does not use a race coefficient. Blood Venous blood specimen / Unknown 09/28/2024 12:26 PM EST us Jean Jacome MD LAB BLOOD ORDERABLES Final Res ult [facility] [address] [place] [address] * CBC W/O Differential (09/28/2024 12:17 PM EST) Only the most recent of2 resultswithin the time period is included. WBC Count 9.91 3.70 - 10.30 10*3/uL LAB HEMATOLOGY METHOD 09/28/2024 2:38 PM EST [facility] RBC Count 5.27 4.60 - 6.10 10*6/uL LAB HEMATOLOGY METHOD 09/28/2024 2:38 PM EST [facility] HGB 16.8 13.7 - 17.5 g/dL LAB HEMATOLOGY METHOD 09/28/2024 2:38 PM EST [facility] HCT 50.2 40.0 - 51.0 % LAB HEMATOLOGY METHOD 09/28/2024 2:38 PM EST [facility] Platelet Count 240 155 - 369 10*3/uL LAB HEMATOLOGY METHOD 09/28/2024 2:38 PM EST [facility] MCV 95 79 - 98 fL LAB HEMATOLOGY METHOD 09/28/2024 2:38 PM EST [facility] MCH 31.9 26.0 - 32.0 pg LAB HEMATOLOGY METHOD 09/28/2024 2:38 PM EST [facility] MCHC 33.5 30.7 - 35.5 g/dL LAB HEMATOLOGY METHOD 09/28/2024 2:38 PM EST [facility] RDW 12.3 11.5 - 14.5 % LAB HEMATOLOGY METHOD 09/28/2024 2:38 PM EST [facility] MPV 10.6 8.8 - 12.5 fL LAB HEMATOLOGY METHOD 09/28/2024 2:38 PM EST [facility] nRBC 0.0 <=0.0 per 100 WBCs LAB HEMATOLOGY METHOD 09/28/2024 2:38 PM EST [facility] Blood Venous blood specimen / Unknown Venipuncture / Unknown 09/28/2024 12:17 PM EST 09/28/2024 12:26 PM EST us Jean Jacome MD LAB BLOOD ORDERABLES Final Res ult [facility] [address] [place] [address] * (ABNORMAL) Renal Function Panel, Plasma (08/26/2024 4:22 AM EDT) Only the most recent of2 resultswithin the time period is included. Glucose, Plasma 143(H) 74 - 99 mg/dL 08/26/2024 5:04 AM EDT [facility] BUN, Plasma 12 7 - 21 mg/dL 08/26/2024 5:04 AM EDT [facility] Creatinine, Plasma 0.84 0.70 - 1.20 mg/dL 08/26/2024 5:04 AM EDT [facility] BUN/Creatinine Ratio 14 08/26/2024 5:04 AM EDT [facility] Sodium, Plasma 129(L) 136 - 145 mmol/L 08/26/2024 5:04 AM EDT [facility] Potassium, Plasma 3.2(L) 3.6 - 4.9 mmol/L 08/26/2024 5:04 AM EDT [facility] Chloride, Plasma 92(L) 97 - 107 mmol/L 08/26/2024 5:04 AM EDT [facility] CO2, Plasma 24 22 - 29 mmol/L 08/26/2024 5:04 AM EDT [facility] Anion Gap 13 6 - 16 mmol/L 08/26/2024 5:04 AM EDT [facility] Total Calcium, Plasma 8.7(L) 8.9 - 10.2 mg/dL 08/26/2024 5:04 AM EDT [facility] Phosphorus, Plasma 4.5 2.5 - 4.5 mg/dL 08/26/2024 5:04 AM EDT [facility] Albumin, Plasma 3.2(L) 3.5 - 5.2 g/dL 08/26/2024 5:04 AM EDT [facility] eGFRcr 108.2 mL/min/1.7 3m*2 08/26/2024 5:04 AM EDT [facility] Comment:Reported eGFRcr in m L/min/1.73m2 is based the CKD-EPI 2020 equation that does not use a race coefficient. Blood Venous blood specimen / Unknown Venipuncture / Unknown 08/26/2024 4:22 AM EDT 08/26/2024 4:37 AM EDT us Arti Stanley MD LAB BLOOD ORDERABLES [place] perez Result [facility] [address] [place] [address] * (ABNORMAL) Basic Metabolic Panel, Plasma (08/24/2024 2:15 AM EDT) [facility] Glucose, Plasma 119(H) 74 - 99 mg/dL 08/24/2024 3:10 AM EDT [facility] BUN, Plasma 10 7 - 21 mg/dL 08/24/2024 3:10 AM EDT [facility] Creatinine, Plasma 0.66(L) 0.70 - 1.20 mg/dL 08/24/2024 3:10 AM EDT [facility] BUN/Creatinine Ratio 15 08/24/2024 3:10 AM EDT [facility] Sodium, Plasma 126(L) 136 - 145 mmol/L 08/24/2024 3:10 AM EDT [facility] Potassium, Plasma 3.5(L) 3.6 - 4.9 mmol/L 08/24/2024 3:10 AM EDT [facility] Chloride, Plasma 91(L) 97 - 107 mmol/L 08/24/2024 3:10 AM EDT [facility] CO2, Plasma 24 22 - 29 mmol/L 08/24/2024 3:10 AM EDT [facility] Anion Gap 11 6 - 16 mmol/L 08/24/2024 3:10 AM EDT [facility] Total Calcium, Plasma 8.6(L) 8.9 - 10.2 mg/dL 08/24/2024 3:10 AM EDT [facility] eGFRcr 116.4 mL/min/1.7 3m*2 08/24/2024 3:10 AM EDT [facility] Comment:Reported eGFRcr in m L/min/1.73m2 is based the CKD-EPI 2020 equation that does not use a race coefficient. Blood Venous blood specimen / Unknown Venipuncture / Unknown 08/24/2024 2:15 AM EDT 08/24/2024 2:39 AM EDT Katy Ding MD LAB BLOOD ORDERABLES Final Res ult [facility] [address] [place] [address] * XR Chest 1 View (08/24/2024 1:20 AM EDT) Only the most recent of2 resultswithin the time period is included. Anatomical Region Laterality Modality Chest Digital Radiogra phy Impressions 08/24/2024 7:43 AM EDT Decreased left pleural effusion. Otherwise, stable exam. CRITICAL RESULT: ?? No. COMMUNICATION: Per this written report. Drafted by Steve Quiros MD on 08/24/2024 7:43 AM Final report signed by Steve Quiros MD on 08/24/2024 7:43 AM Narrative 08/24/2024 7:43 AM EDT CLINICAL INDICATION: fluid overload TECHNIQUE: XR CHEST 1 VIEW COMPARISON: August 20, 2024 FINDINGS: Moderate right pleural effusion is stable. Trace left pleural effusion is slightly decreased. Some peripheral airspace disease and basal opacities are similar. Procedure Note Steve Quiros MD - 08/24/2024 CLINICAL INDICATION: fluid overload TECHNIQUE: XR CHEST 1 VIEW COMPARISON: August 20, 2024 FINDINGS: Moderate right pleural effusion is stable. Trace left pleural effusion isslightly decreased. Some peripheral airspace disease and basal opacitiesare similar. IMPRESSION: Decreased left pleural effusion. Otherwise, stable exam. CRITICAL RESULT: No. COMMUNICATION: Per this written report. Drafted by Steve Quiros MD on 08/24/2024 7:43 AM Final report signed by Steve Quiros MD on 08/24/2024 7:43 AM Katy Ding MD IMG XR PROCEDURES Final Result * ECHO, ADULT TRANSTHORACIC COMPLETE (08/23/2024 12:04 PM EDT) BSA 1.92 m2 [place] ISCV Height 175.0 KENIA ISCV Weight 77.0 KENIA ISCV LVIDd 59 mm KENIA ISCV LVIDs 56 mm KENIA ISCV IVSd 9 mm KENIA ISCV LVPWd 9 mm KENIA ISCV LV MASS(C)D 214 g KENIA ISCV LV RWT 0.31 mm KENIA ISCV LV EDV(MOD-4ch) 239 mL KENIA ISCV LV ESV(MOD4ch) 196 mL KENIA ISCV EF(MOD-sp4) 18 % KENIA ISCV LV EDV(MOD-2ch) 299 mL KENIA ISCV LV ESV(MOD2ch) 265 mL KENIA ISCV EF(MOD-sp2) 11 % KENIA ISCV EDV(MOD-bp) 269 mL KENIA ISCV ESV(MOD-bp) 231 mL KENIA ISCV EF(MOD-bp) 14 % KENIA ISCV MV E Vmax 84.3 cm/s KENIA ISCV TR Vmax 294.0 cm/s KENIA ISCV LA dimension 46 mm KENIA ISCV TR Max PG 35 mmHG KENIA ISCV PA acc time 110 msec KENIA ISCV mean PAP 30 mmHg KENIA ISCV Ao Root Diam 31 mm KENIA ISCV PA OH(ACCEL) 29.3 mmHg KENIA ISCV LVLs ap2 11.1 mm KENIA ISCV LV Lat e' Velocity 6.1 cm/s KENIA ISCV LV Sept e' Osito 4.4 cm/s KENIA ISCV Lat E/e' 13.8 KENIA ISCV Sep E/e' 19.2 KENIA ISCV Avg E/e' 16.5 KENIA ISCV RVSP 43 mmHg KENIA ISCV RAP systole 8 mmHg KENIA ISCV Anatomical Region Laterality Modality Echocardiography Narrative 08/23/2024 2:06 PM EDT ?Left??Ventricle: Based on the 2D volumes, the left ventricle is severely dilated in size. There is eccentric hypertrophy. The left ventricular systolic function is severely reduced. The LVEF is visually estimated at less than 20%. The left ventricular filling pressure is elevated. There is global hypokinesis of the left ventricle. ?Right??Ventricle: The right ventricle is dilated. The right ventricular systolic function is severely reduced. Right ventricular systolic pressure is mildly elevated (estimated 43 mmHg). ?Pericardium: There is a small pericardial effusion. There is no echocardiographic evidence of cardiac tamponade. ?There is no recent study available for direct rzsi-zs-[id number] comparison. ?? Left Ventricle Based on the 2D volumes, the left ventricle is severely dilated in size. There is eccentric hypertrophy. The left ventricular systolic function is severely reduced. The LVEF is visually estimated at less than 20%. The left ventricular filling pressure is elevated. There is global hypokinesis of the left ventricle. Right Ventricle The right ventricle is dilated. The right ventricular systolic function is severely reduced. Right ventricular systolic pressure is mildly elevated (35-50mmHg). The estimated right ventricular systolic pressure is 43 mmHg. Left Atrium The left atrium is dilated by visual assessment. The interatrial septum is intact with no evidence for an atrial septal defect. Right Atrium The right atrial size is normal. IVC/SVC Based on the IVC size and respiratory variation, the estimated right atrial pressure is 8mmHg. Mitral Valve The leaflets appear thickened. There is no mitral valve vegetation. There is mild mitral regurgitation with a central jet. There is no mitral stenosis. Tricuspid Valve The tricuspid valve is normal in appearance. There is no tricuspid valve vegetation. There is mild to moderate tricuspid regurgitation. There is no tricuspid stenosis. Aortic Valve The aortic valve appears to be trileaflet. There is no aortic valve vegetation. There is no valvular regurgitation. There is no hemodynamically significant valvular aortic stenosis. Pulmonic Valve The pulmonic valve is grossly normal. There is no pulmonic regurgitation. There is no pulmonic stenosis. Pericardium There is a small pericardial effusion. There is no echocardiographic evidence of cardiac tamponade. Great Vessels The aortic root is normal in size. The sinus of Valsalva (aortic root) diameter is 31 mm by leading edge to leading edge method. In the maximally visualized portion, the ascending aorta appears normal in size. In the maximally visualized portion, the aortic arch appears normal in size. The main pulmonary artery is not well visualized. Extracardiac There is a left pleural effusion. Study Details A complete transthoracic echocardiogram using two-dimensional (2D), m-mode, color and spectral flow Doppler imaging was performed. During the study the apical, parasternal, subcostal and suprasternal view was captured. Overall the study quality was adequate. Height: 175.0 cm. Weight: 77.0 kg. BSA: 1.92 m2. Study Recommendation There is no recent study available for direct [id number] comparison. us Arti Stanley MD CV ECHO PROCEDURES Final Result * (ABNORMAL) CBC and Differential (08/23/2024 3:03 AM EDT) Only the most recent of4 resultswithin the time period is included. WBC Count 8.48 3.70 - 10.30 10*3/uL LAB HEMATOLOGY METHOD 08/23/2024 3:12 AM EDT [facility] RBC Count 3.88(L) 4.60 - 6.10 10*6/uL LAB HEMATOLOGY METHOD 08/23/2024 3:12 AM EDT [facility] HGB 13.6(L) 13.7 - 17.5 g/dL LAB HEMATOLOGY METHOD 08/23/2024 3:12 AM EDT [facility] HCT 37.9(L) 40.0 - 51.0 % LAB HEMATOLOGY METHOD 08/23/2024 3:12 AM EDT [facility] Platelet Count 209 155 - 369 10*3/uL LAB HEMATOLOGY METHOD 08/23/2024 3:12 AM EDT [facility] MCV 98 79 - 98 fL LAB HEMATOLOGY METHOD 08/23/2024 3:12 AM EDT [facility] MCH 35.1(H) 26.0 - 32.0 pg LAB HEMATOLOGY METHOD 08/23/2024 3:12 AM EDT [facility] MCHC 35.9(H) 30.7 - 35.5 g/dL LAB HEMATOLOGY METHOD 08/23/2024 3:12 AM EDT [facility] RDW 11.9 11.5 - 14.5 % LAB HEMATOLOGY METHOD 08/23/2024 3:12 AM EDT [facility] MPV 10.4 8.8 - 12.5 fL LAB HEMATOLOGY METHOD 08/23/2024 3:12 AM EDT [facility] nRBC 0.0 <=0.0 per 100 WBCs LAB HEMATOLOGY METHOD 08/23/2024 3:12 AM EDT [facility] Differential Type Automated LAB HEMATOLOGY METHOD 08/23/2024 3:12 AM EDT [facility] Neutrophils % 68 % LAB HEMATOLOGY METHOD 08/23/2024 3:12 AM EDT [facility] Lymphocytes % 18 % LAB HEMATOLOGY METHOD 08/23/2024 3:12 AM EDT [facility] Monocytes % 11 % LAB HEMATOLOGY METHOD 08/23/2024 3:12 AM EDT [facility] Eosinophils % 1 % LAB HEMATOLOGY METHOD 08/23/2024 3:12 AM EDT [facility] Basophils % 1 % LAB HEMATOLOGY METHOD 08/23/2024 3:12 AM EDT [facility] Immature Granulocytes % 1 % LAB HEMATOLOGY METHOD 08/23/2024 3:12 AM EDT [facility] Neutrophils Absolute 5.84 1.60 - 6.10 10*3/uL LAB HEMATOLOGY METHOD 08/23/2024 3:12 AM EDT [facility] Lymphocytes Absolute 1.54 1.20 - 3.90 10*3/uL LAB HEMATOLOGY METHOD 08/23/2024 3:12 AM EDT [facility] Monocytes Absolute 0.95(H) 0.30 - 0.90 10*3/uL LAB HEMATOLOGY METHOD 08/23/2024 3:12 AM EDT [facility] Eosinophils Absolute 0.05 0.00 - 0.50 10*3/uL LAB HEMATOLOGY METHOD 08/23/2024 3:12 AM EDT [facility] Basophils Absolute 0.05 0.00 - 0.10 10*3/uL LAB HEMATOLOGY METHOD 08/23/2024 3:12 AM EDT [facility] Immature Granulocytes Absolute 0.05 0.00 - 0.06 10*3/uL LAB HEMATOLOGY METHOD 08/23/2024 3:12 AM EDT [facility] Blood Venous blood specimen / Unknown Venipuncture / Unknown 08/23/2024 3:03 AM EDT 08/23/2024 3:08 AM EDT Narrative [facility] - 08/23/2024 3:12 AM EDT Therapeutic decision making should be based on absolute values, rather than percentages. us Deborah Canela MD LAB BLOOD ORDERABLES Final Re sult [facility] [address] [place] [address] * Magnesium, Plasma (08/23/2024 3:03 AM EDT) Only the most recent of3 resultswithin the time period is included. Magnesium, Plasma 1.9 1.9 - 2.4 mg/dL 08/23/2024 3:37 AM EDT [facility] Blood Venous blood specimen / Unknown Venipuncture / Unknown 08/23/2024 3:03 AM EDT 08/23/2024 3:37 AM EDT us Deborah Canela MD LAB BLOOD ORDERABLES Final Re sult Performing Organization Address City/[facility]/ZIP Co de Phone Number [facility] [address] [place] [address] * Phosphorus (08/22/2024 4:53 AM EDT) Pathologist [facility] Phosphorus, Plasma 2.6 2.5 - 4.5 mg/dL 08/22/2024 5:48 AM EDT [facility] Blood Venous blood specimen / Unknown Venipuncture / Unknown 08/22/2024 4:53 AM EDT 08/22/2024 5:26 AM EDT us Deborah Canela MD LAB BLOOD ORDERABLES Final Re sult Performing Organization Address [facility] de Phone Number [facility] [address] [place] [address] * (ABNORMAL) POCT glucose meter (08/21/2024 5:31 PM EDT) [facility] POCT Glucose 105(H) 74 - 99 mg/dL 08/21/2024 5:33 PM EDT [facility] Comment:Accuracy of a glucos e result obtained from a capillary whole blood specimen relies upon adequate, non-compromised capillary blood flow. If the capillary glucose result is not consistent with the patient's clinical signs and symptoms, glucose testing should be repeated with either an arterial or venous sample on the glucometer or sent to the main labortory for testing. Comment 08/21/2024 5:33 PM EDT [facility] Explosive Ordnance Specialist ID Kristen, Zaraavienne 08/21/2024 5:33 PM EDT [facility] Device ID [id number] 08/21/2024 5:33 PM EDT [facility] Specimen Type POC Capillary 08/21/2024 5:33 PM EDT [facility] Blood Capillary blood specimen / Unknown 08/21/2024 5:31 PM EDT 08/21/2024 5:33 PM EDT us Deborah Canela MD LAB POINT OF CARE TE ST DOCKED DEVICE UNSOLICITED RESULTS Final Result [facility] [address] [place] [address] * US Liver Screen (08/21/2024 10:53 AM EDT) Anatomical Region Laterality Modality Abdomen, Liver Ultrasound Impressions 08/22/2024 8:57 AM EDT Moderate hepatic steatosis Normal size spleen Trace pericholecystic fluid CRITICAL RESULT: No. COMMUNICATION: Per this written report. Drafted by Mario Ramírez MD on 08/21/2024 12:08 PM Final report signed by Mario Ramírez MD on 08/22/2024 8:57 AM Narrative 08/22/2024 8:57 AM EDT CLINICAL INDICATION: screen for cirrhosis/ spleenomegally/ ascites TECHNIQUE: Multiplanar static and cine shaw scale ultrasound images of the abdomen were obtained, accompanied by selective color Doppler ultrasound images. COMPARISON: None. FINDINGS: Grayscale: Liver: Increased hepatic echogenicity. Normal echotexture. No focal liver lesion. Portal Vein: There is antegrade flow within the main portal vein. Gallbladder: There is sludge within the gallbladder. There is trace pericholecystic fluid. No gallbladder wall thickening. Sonographic Silva sign is absent. Common Duct: Nondilated measuring 4 mm Spleen: Normal in size measuring ??8.9 cm. Free Fluid: Trace pericholecystic fluid Other: N/A Procedure Note Mario Ramírez MD - 08/22/2024 CLINICAL INDICATION: screen for cirrhosis/ spleenomegally/ ascites TECHNIQUE: Multiplanar static and cine shaw scale ultrasound images of the abdomenwere obtained, accompanied by selective color Doppler ultrasound images. COMPARISON: None. FINDINGS: Grayscale: Liver: Increased hepatic echogenicity. Normal echotexture. No focal liverlesion. Portal Vein: There is antegrade flow within the main portal vein. Gallbladder: There is sludge within the gallbladder. There is tracepericholecystic fluid. No gallbladder wall thickening. Sonographic Murphysign is absent. Common Duct: Nondilated measuring 4 mm Spleen: Normal in size measuring 8.9 cm. Free Fluid: Trace pericholecystic fluid Other: N/A IMPRESSION: Moderate hepatic steatosis Normal size spleen Trace pericholecystic fluid CRITICAL RESULT: No. COMMUNICATION: Per this written report. Drafted by Mario Ramírez MD on 08/21/2024 12:08 PM Final report signed by Mario Ramírez MD on 08/22/2024 8:57 AM us Arti Stanley MD IMG US PROCEDURES Final R esult * (ABNORMAL) Sodium (08/21/2024 8:19 AM EDT) Only the most recent of4 resultswithin the time period is included. Sodium, Plasma 119(LL) 136 - 145 mmol/L 08/21/2024 8:59 AM EDT [facility] Blood Venous blood specimen / Unknown Venipuncture / Unknown 08/21/2024 8:19 AM EDT 08/21/2024 8:41 AM EDT us Arti Stanley MD LAB BLOOD ORDERABLES Mecca l Result Performing Organization Address City/[facility]/ZIP Co de Phone Number [facility] [address] [place] [address] * Light Green Top (08/21/2024 6:34 AM EDT) Only the most recent of2 resultswithin the time period is included. Extra Hold for add-ons 08/21/2024 9:01 AM EDT [facility] Comment:Auto resulted. Blood Venous blood specimen / Unknown Venipuncture / Unknown 08/21/2024 6:34 AM EDT 08/21/2024 6:44 AM EDT Deborah Canela MD LAB BLOOD ORDERABLES Final Re sult [facility] [address] [place] [address] * Lavender Top (08/21/2024 1:49 AM EDT) Extra Hold for add-ons 08/21/2024 5:01 AM EDT [facility] Comment:Auto resulted. Blood Venous blood specimen / Unknown Venipuncture / Unknown 08/21/2024 1:49 AM EDT 08/21/2024 2:02 AM EDT Deborah Canela MD LAB BLOOD ORDERABLES Final Re sult Performing Organization Address City/[facility]/ZIP Co de Phone Number [facility] [address] [place] [address] * Light Blue Top (08/21/2024 1:49 AM EDT) Extra Hold for add-ons 08/21/2024 5:01 AM EDT [facility] Comment:Auto resulted. Blood Venous blood specimen / Unknown Venipuncture / Unknown 08/21/2024 1:49 AM EDT 08/21/2024 2:02 AM EDT Deborah Cnaela MD LAB BLOOD ORDERABLES Final Re sult Performing Organization Address [facility] de Phone Number [facility] [address] [place] [address] * (ABNORMAL) PT/INR (08/21/2024 1:49 AM EDT) Only the most recent of2 resultswithin the time period is included. Prothrombin Time 16.2(H) 12.0 - 14.3 sec 08/21/2024 2:14 AM EDT [facility] INR 1.3(H) 0.9 - 1.1 08/21/2024 2:14 AM EDT [facility] Blood Venous blood specimen / Unknown Venipuncture / Unknown 08/21/2024 1:49 AM EDT 08/21/2024 2:01 AM EDT Narrative [facility] - 08/21/2024 2:14 AM EDT OPTIMAL INR RANGES FOR PATIENT ON ORAL ANTICOAGULANT THERAPY Prevention of venous thromboembolism ?INR 2.0 to 3.0 In patients with heart disease: Atrial fibrillation ?INR 2.0 to 3.0 Valvular heart disease ? INR 2.0 to 3.0 Tissue heart valves ?INR 2.0 to 3.0 Mechanical prosthetic valves ? INR 2.5 to 3.5 Prevention of recurrent VA ? INR 2.5 to 3.5 Arti Stanley MD LAB BLOOD ORDERABLES Mecca l Result Performing Organization Address [facility] de Phone Number [facility] [address] [place] [address] * Cortisol (08/21/2024 1:49 AM EDT) Cortisol 20.90 Before 10am: 3.7 - 19.4. After 5pm: 2.9 - 17.3 ug/dL 08/21/2024 4:25 AM EDT [facility] Comment:Testing performed on W-locate Admin Asst, standardized against [employer] Reference Standard concentration values assigned by LC-MS/MS and verified by BCR 192 and BCR 193 certified reference materials. Blood Venous blood specimen / Unknown Venipuncture / Unknown 08/21/2024 1:49 AM EDT 08/21/2024 2:01 AM EDT Arti Stanley MD LAB REF LAB BLOOD AND FLU ID ORD Final Result Performing Organization Address [facility] de Phone Number [facility] [address] [place] [address] * Troponin T, High Sensitivity, 2 Hour, Plasma (08/20/2024 10:46 PM EDT) Pathologist [facility] Troponin T, High Sensitivity, 2 Hour 12 <19 ng/L 08/20/2024 11:29 PM EDT [facility] Blood Venous blood specimen / Unknown Venipuncture / Unknown 08/20/2024 10:46 PM EDT 08/20/2024 10:49 PM EDT Fidel CASTANEDA LAB BLOOD ORDERABLES Mecca l Result Performing Organization Address [facility] de Phone Number [facility] [address] [place] [address] * Sodium, urine, random (08/20/2024 10:05 PM EDT) Sodium, Urine 48 mmol/L 08/20/2024 10:30 PM EDT [facility] Urine Urine specimen obtained by clean catch procedure / Unknown Non-blood Collection / Unknown 08/20/2024 10:05 PM EDT 08/20/2024 10:09 PM EDT Fidel Ledbetter [place] LAB URINE ORDERABLES Mecca l Result [facility] [address] [place] [address] * Osmolality, urine (08/20/2024 10:05 PM EDT) Osmolality, Urine 223 50 - 1,200 mOsm/kg 08/21/2024 12:44 AM EDT [facility] Urine Urine specimen obtained by clean catch procedure / Unknown Non-blood Collection / Unknown 08/20/2024 10:05 PM EDT 08/20/2024 10:09 PM EDT [facility] URINE ORDERABLES Mecca l Result Performing Organization Address City/[facility]/ZIP Co de Phone Number [facility] [address] [place] [address] * Troponin now and 120 min (08/20/2024 8:38 PM EDT) Troponin T, High Sensitivity, 0 Hour 11 <19 ng/L 08/20/2024 9:13 PM EDT [facility] Blood Venous blood specimen / Unknown Venipuncture / Unknown 08/20/2024 8:38 PM EDT 08/20/2024 8:42 PM EDT [facility] BLOOD ORDERABLES Mecca l Result Performing Organization Address City/[facility]/ZIP Co de Phone Number [facility] [address] [place] [address] * (ABNORMAL) Ethyl Alcohol Plasma (08/20/2024 8:38 PM EDT) Ethanol Plasma 14(H) <10 mg/dL 08/20/2024 9:05 PM EDT [facility] Blood Venous blood specimen / Unknown Venipuncture / Unknown 08/20/2024 8:38 PM EDT 08/20/2024 8:42 PM EDT Narrative [facility] - 08/20/2024 9:05 PM EDT Enzymatic Assay: Performed on Padmini Sky. Fidel Ledbetter [place] LAB BLOOD ORDERABLES Mecca l Result [facility] [address] [place] [address] * Thyroid Stimulating Hormone, Plasma (08/20/2024 8:38 PM EDT) Thyroid Stimulating Hormone, Plasma 2.60 0.40 - 4.20 uIU/mL 08/20/2024 9:41 PM EDT [facility] Blood Venous blood specimen / Unknown Venipuncture / Unknown 08/20/2024 8:38 PM EDT 08/20/2024 8:42 PM EDT [facility] BLOOD ORDERABLES Mecca l Result Performing Organization Address City/[facility]/ZIP Co de Phone Number [facility] [address] [place] [address] * Free T4, Plasma (08/20/2024 8:38 PM EDT) Free T4, Plasma 1.2 0.8 - 1.7 ng/dL 08/20/2024 9:13 PM EDT [facility] Blood Venous blood specimen / Unknown Venipuncture / Unknown 08/20/2024 8:38 PM EDT 08/20/2024 8:42 PM EDT Fidel Ledbetter [place] LAB BLOOD ORDERABLES Mecca l Result Performing Organization Address City/[facility]/ZIP Co de Phone Number [facility] [address] [place] [address] * (ABNORMAL) Osmolality (08/20/2024 8:38 PM EDT) Osmolality, Serum 242(L) 275 - 295 mOsm/Kg 08/21/2024 12:44 AM EDT [facility] Blood Venous blood specimen / Unknown Venipuncture / Unknown 08/20/2024 8:38 PM EDT 08/20/2024 8:42 PM EDT [facility] LAB BLOOD ORDERABLES Mecca l Result [facility] [address] [place] [address] * Lipase (08/20/2024 8:38 PM EDT) Lipase, Plasma 44 19 - 63 U/L 08/20/2024 9:41 PM EDT [facility] Blood Venous blood specimen / Unknown Venipuncture / Unknown 08/20/2024 8:38 PM EDT 08/20/2024 8:42 PM EDT [facility] LAB BLOOD ORDERABLES Mecca l Result Performing Organization Address City/[facility] Co de Phone Number [facility] [address] [place] [address] * EKG now - STAT (adult) (08/20/2024 8:34 PM EDT) EKG DIAGNOSIS CLASS Abnormal MUSE ECG Ventricular Rate 106 BPM MUSE ECG Atrial Rate 106 BPM MUSE ECG OH Interval 162 ms MUSE ECG QRSD Interval 134 ms MUSE ECG QT Interval 384 ms MUSE ECG QTC Interval 510 ms MUSE ECG P [place] 63 degrees MUSE ECG R [place] 17 degrees MUSE ECG T Wave [place] 101 degrees MUSE ECG Diagnosis Sinus tachycardia MUSE ECG Diagnosis with MUSE ECG Diagnosis premature atrial complexes MUSE ECG Diagnosis Possible MUSE ECG Diagnosis Left atrial enlargement MUSE ECG Diagnosis Left ventricular hypertrophy MUSE ECG Diagnosis with QRS widening MUSE ECG Diagnosis ( MUSE ECG Diagnosis [place] product MUSE ECG Diagnosis ) MUSE ECG Diagnosis Nonspecific T wave abnormality MUSE ECG Diagnosis Abnormal ECG MUSE ECG Diagnosis Confirmed by Eleazar Garcia ([id number]) on 08/22/2024 7:34:57 PM MUSE ECG 08/20/2024 8:34 PM EDT 08/22/2024 7:34 PM EDT us Fidel CASTANEDA ECG ORDERABLES Final Res ult Performing Organization Address City/[facility]/ZIP Co de Phone Number MUSE ECG * Urine Shaw Panel (08/20/2024 8:34 PM EDT) Extra Reflex urine culture not indicated 08/21/2024 5:01 AM EDT [facility] Comment: Previously prelim verified as Specimen evaluation in progress on 08/20/2024 at 2201 EDT. Previously prelim verified as Specimen evaluation in progress on 08/20/2024 at 2301 EDT. Previously prelim verified as Specimen evaluation in progress on 08/21/2024 at 0002 EDT. Previously prelim verified as Specimen evaluation in progress on 08/21/2024 at 0103 EDT. Previously prelim verified as Specimen evaluation in progress on 08/21/2024 at 0201 EDT. Previously prelim verified as Specimen evaluation in progress on 08/21/2024 at 0301 EDT. Previously prelim verified as Specimen evaluation in progress on 08/21/2024 at 0401 EDT. Urine Urine specimen obtained by clean catch procedure / Unknown Non-blood Collection / Unknown 08/20/2024 8:34 PM EDT 08/20/2024 8:42 PM EDT us Fidel CASTANEDA LAB URINE ORDERABLES Mecca l Result Performing Organization Address [facility] Co de Phone Number [facility] [address] [place] [address] * (ABNORMAL) Urinalysis with reflex microscopic (Culture NOT Included) (08/20/2024 8:34 PM EDT) Color, Urine Yellow LAB URINALYSIS - AUTOMATED METHOD 08/20/2024 8:45 PM EDT [facility] Clarity, Urine Clear LAB URINALYSIS - AUTOMATED METHOD 08/20/2024 8:45 PM EDT [facility] Spec [place], Urine 1.008 1.005 - 1.030 LAB URINALYSIS - AUTOMATED METHOD 08/20/2024 8:45 PM EDT [facility] pH, Urine 6.5 4.5 to 8 LAB URINALYSIS - AUTOMATED METHOD 08/20/2024 8:45 PM EDT [facility] Protein, Urine Trace(A) Negative mg/dL LAB URINALYSIS - AUTOMATED METHOD 08/20/2024 8:45 PM EDT [facility] Glucose, Urine 250(A) Negative mg/dL LAB URINALYSIS - AUTOMATED METHOD 08/20/2024 8:45 PM EDT [facility] Ketones, Urine Negative Negative mg/dL LAB URINALYSIS - AUTOMATED METHOD 08/20/2024 8:45 PM EDT [facility] Blood, Urine Negative Negative LAB URINALYSIS - AUTOMATED METHOD 08/20/2024 8:45 PM EDT [facility] Bilirubin, Urine Negative Negative LAB URINALYSIS - AUTOMATED METHOD 08/20/2024 8:45 PM EDT [facility] Urobilinogen, Urine 1.0 0.2 to 1.0 mg/dL LAB URINALYSIS - AUTOMATED METHOD 08/20/2024 8:45 PM EDT [facility] Leukocytes, Urine Negative Negative LAB URINALYSIS - AUTOMATED METHOD 08/20/2024 8:45 PM EDT [facility] Nitrite, Urine Negative Negative LAB URINALYSIS - AUTOMATED METHOD 08/20/2024 8:45 PM EDT [facility] Urine Urine specimen obtained by clean catch procedure / Unknown Non-blood Collection / Unknown 08/20/2024 8:34 PM EDT 08/20/2024 8:42 PM EDT Fidel CASTANEDA LAB URINE ORDERABLES Mecca l Result [facility] [address] [place] [id number] * XR OUTSIDE IMAGES (08/20/2024 3:44 PM EDT) Anatomical Region Laterality Modality Radiographic Angelita ging 08/20/2024 3:44 PM EDT us External Provider IMG XR PROCEDURES Final Result * XR Hand Right 3+ Views (08/02/2024 8:21 PM EDT) Anatomical Region Laterality Modality Upper Extremities, Hand Right Digital Radiography Impressions 08/02/2024 10:12 PM EDT No acute osseous abnormality. CRITICAL RESULT: ?? No. COMMUNICATION: Per this written report. Drafted by Tiana Carrero MD on 08/02/2024 10:10 PM Final report signed by Tiana Carrero MD on 08/02/2024 10:12 PM Narrative 08/02/2024 10:12 PM EDT CLINICAL INDICATION: injury/laceration TECHNIQUE: XR HAND RIGHT 3+ VIEWS COMPARISON: None. FINDINGS: No fracture, subluxation, or dislocation is noted. No evidence of degenerative change or erosions. The carpal rows are intact. Scapholunate interval is within normal limits. Laceration in the index finger dorsal soft tissue. No retained radiopaque debris. Procedure Note Tiana Carrero MD - 08/02/2024 CLINICAL INDICATION: injury/laceration TECHNIQUE: XR HAND RIGHT 3+ VIEWS COMPARISON: None. FINDINGS: No fracture, subluxation, or dislocation is noted. No evidence ofdegenerative change or erosions. The carpal rows are intact. Scapholunateinterval is within normal limits. Laceration in the index finger dorsalsoft tissue. No retained radiopaque debris. IMPRESSION: No acute osseous abnormality. CRITICAL RESULT: No. COMMUNICATION: Per this written report. Drafted by Tiana Carrero MD on 08/02/2024 10:10 PM Final report signed by Tiana Carrero MD on 08/02/2024 10:12 PM Nicol Kilgore MD IMG XR PROCEDURES Final Resul t * ED HIV 1/2 Antibody/Antigen Screen w/Reflex to HIV 1/2 Differentiation (08/02/2024 8:08 PM EDT) HIV 1 & 2 Antibody/Antigen Screen Non Reactive Non Reactive 08/02/2024 9:03 PM EDT [facility] Comment:Screening for HIV 1 & 2 antibodies, and P24 antigen is NONREACTIVE. No confirmatory testing is required. Blood Venous blood specimen / Unknown Venipuncture / Unknown 08/02/2024 8:08 PM EDT 08/02/2024 8:22 PM EDT us Nicol Kilgore MD LAB BLOOD ORDERABLES Final Re sult Performing Organization Address [facility] [place] [address] * Hepatitis C Antibody - ED (08/02/2024 8:08 PM EDT) Hepatitis C Antibody Negative Negative 08/02/2024 10:30 PM EDT [facility] Blood Venous blood specimen / Unknown Venipuncture / Unknown 08/02/2024 8:08 PM EDT 08/02/2024 8:22 PM EDT us Nicol Kilgore MD LAB BLOOD ORDERABLES Final Re sult Performing Organization Address [facility] [place] [address] * APTT (08/02/2024 8:08 PM EDT) Pathologist [facility] aPTT 33 25 - 35 sec 08/02/2024 8:34 PM EDT [facility] Blood Venous blood specimen / Unknown Venipuncture / Unknown 08/02/2024 8:08 PM EDT 08/02/2024 8:12 PM EDT Result Riddhi Kilgore MD LAB BLOOD ORDERABLES Final Re sult Performing Organization Address [facility] de Phone Number [facility] [address] [place] [address] * [place] RESUPERF WND BODY <2.5CM, HC APPLICATION DERMABOND (08/02/2024 6:26 PM EDT) Narrative Carolina Perry MD - 08/02/2024 6:26 PM EDT Jose Root MD ? 08/03/2024 11:11 AM Laceration Repair Performed by: Jose Root MD Authorized by: Carolina Perry MD ?? Consent: ??Consent obtained: ??Verbal ??Consent given by: ??Patient ??Risks, benefits, and alternatives were discussed: yes ?Risks discussed: ??Infection, need for additional repair, nerve damage, vascular damage, poor wound healing, poor cosmetic result, tendon damage, retained foreign body and pain ??Alternatives discussed: ??No treatment, delayed treatment and observation Glidden protocol: ??Imaging studies available: yes ?Patient identity confirmed: ??Verbally with patient and arm band Anesthesia: ??Anesthesia method: ??Nerve block ??Block location: ??Digital nerve block ??Block needle gauge: ??25 G ??Block anesthetic: ??Lidocaine 1% w/o epi ??Block technique: ??Dorsal surface block ??Block injection procedure: ??Anatomic landmarks identified, negative aspiration for blood, introduced needle and incremental injection ??Block outcome: ??Anesthesia achieved Laceration details: ??Location: ??Finger ??Finger location: ??R index finger (Dorsal aspect) ??Length (cm): ??2.5 ??Depth (mm): ??4 Pre-procedure details: ??Preparation: ??Patient was prepped and draped in usual sterile fashion and imaging obtained to evaluate for foreign bodies Exploration: ??Limited defect created (wound extended): yes ?Hemostasis achieved with: ??Direct pressure ??Imaging obtained: x-ray ?Imaging outcome: foreign body not noted ?Wound exploration: wound explored through full range of motion and entire depth of wound visualized ?Wound exploration comment: ??No tendon involvement on my exam. Full wound bed was exposed during repair. I was able to visualize the entirety of the tendon. Pt was able to flex and extend the finger without pain or difficulty. I visualized no defects within the tendon at rest&movement ??Wound extent: no foreign bodies/material noted, no tendon damage noted, no underlying fracture noted and no vascular damage noted ?Contaminated: no ?? Treatment: ??Area cleansed with: ??Saline ??Amount of cleaning: ??Standard ??Irrigation solution: ??Sterile saline ??Irrigation volume: ??100ml ??Irrigation method: ??Syringe ??Visualized foreign bodies/material removed: no ?Debridement: ??Minimal ??Undermining: ??None ??Scar revision: no ?? Skin repair: ??Repair method: ??Sutures ??Suture size: ??5-0 ??Suture material: ??Nylon ??Suture technique: ??Simple interrupted ??Number of sutures: ??7 Approximation: ??Approximation: ??Close Repair type: ??Repair type: ??Simple Post-procedure details: ??Dressing: ??Non-adherent dressing, splint for protection and tube gauze (Finger splint) ??Procedure completion: ??Tolerated well, no immediate complications us Carolina Perry MD IN CLINIC/BEDSIDE ORDERABLES Final Result from Last 3 Months Insurance [facility] MEDICAID Advance Directives * Full Code (Latest Code Status on File) Date Activated Date Inactivated Comments 08/20/2024 11:01 PM 08/26/2024 6:03 PM Question Answer Comments Patient has decision-making capacity? Yes Care Teams Senior Sales Associate Relationship Specialty Start Date End Date Jhoan Syed DO [address] [place] [address] PCP - General 08/31/24
--- OUTSIDE RECORDS SUMMARY | 2024-10-14 11:48 | XMS_ITS | Encounter Summary ---
Author Organization Healthcare Address [address] [place] [address] Care Team Providers Care Weapons Mechanic Name Role Phone Daria Larson RN Unavailable Unavailable Jhoan Syed DO Primary Care Provider [phone] Encounter Details Date Type Department Care Team (Latest Contact Info) Description 08/31/2024 Travel Social History Tobacco Use Types Packs/Day [...] place to sleep or slept in a halfway (including now)? No 08/24/2024 CAGE ASSESSMENT Answer [...] drink first t margarito in the morning (EYE-SALES AND SERVICE CHANGE LEADER) to steady your nerves or to get [...] Medical Office Building Echo Lab [address], [address] [place] [address] 02/08/2025 11:40 AM EDT Office Visit [facility] [place] [address], [address] [place] [address] Jean Jacome MD [address] [place] [address] documented as of this encounter Visit Diagnoses Not on filedocumented in this encounter Additional Health Concerns Assessment Noted Time A Body Mass Index follow-up plan has been documented for the patient 08/31/2024 12:54 PM EDT documented as of this encounter Care Teams Weapons Mechanic Relationship Specialty Start Date End Date Jhoan Syed DO [address] [place] [address] PCP - General 08/31/24 Daria Larson, RN TCM Nurse 08/27/24 09/26/24 documented as of this encounter
--- OUTSIDE RECORDS SUMMARY | 2024-10-14 11:48 | XMS_ITS | Encounter Summary ---
Author Organization Healthcare Address [address] [place] [address] Care Team Providers Care Columnist/Commentator Name Role Phone Daria Larson RN Unavailable Unavailable Jhoan Syed DO Primary Care Provider [phone] Encounter Details Date Type Department Care Team (Late st Contact Info) Description 09/20/2024 Orders Only [facility] Discharge Clinic [address] [place] [address] Serena, February R, DIRECTOR CORRECTIONAL AGENCY [address] [place] [address] Congestive heart failure, unspecified HF chronicity, unspecified heart failure type (CMS/HCC) (Primary Dx) Social History Tobacco Use Types Packs/Day Years [...] place to sleep or slept in a senior care (including now)? No 08/24/2024 CAGE ASSESSMENT Answer [...] drink first t margarito in the morning (EYE-ROLL EXAMINER) to steady your nerves or to get rid of a hangover? 0 08/20/2024 CAGE Questionnaire Score 0 024 Utilities Answer Date Recorded In the past 12 months has th e [employer], gas, oil, or water company threatened to [...] Medical Office Building Echo Lab [address], [address] [place] [address] 02/08/2025 11:40 AM EDT Office Visit [facility] [place] [address], [address] [place] [address] Jean Jacome MD [address] [place] [address] documented as of this encounter Visit Diagnoses Diagnosis Congestive heart failure, unspecified HF chronicity, unspecified heart failure type (CMS/HCC)- Primary documented in this encounter Additional Health Concerns Assessment Noted Time A Body Mass Index follow-up plan has been documented for the patient 08/31/2024 12:54 PM EDT documented as of this encounter Care Teams Columnist/Commentator Relationship Specialty Start Date End Date Jhoan Syed DO [address] [place] [address] PCP - General 08/31/24 Daria Larson RN TCM Nurse 08/27/24 09/26/24 documented as of this encounter
--- OUTSIDE RECORDS SUMMARY | 2024-10-14 11:48 | XMS_ITS | Encounter Summary ---
Author Organization Healthcare Address [address] [place] [address] Care Team Providers Care Family Physician Name Role Phone Pcp, No Primary Care Provider Unavailabl e Encounter Details Date Type Department Care Team (Latest Contact Info) Description 08/23/2024 Travel Social History Tobacco Use Types Packs/Day Years Used Date Smoking Tobacco: Every Day Cigarettes Smokeless Tobacco: Current Alcohol Use Standard Drinks/Week Comments Yes 84 (1 standard drink = 0.6 oz pure alcohol) half pint to pint daily/every other day Humiliation, [...] to sleep or slept in a senior living (including now)? No 08/24/2024 CAGE ASSESSMENT Answer [...] drink first t margarito in the morning (EYE-DINING ROOM BUSSER) to steady your nerves or to get rid of a hangover? 0 08/20/2024 CAGE Questionnaire Score 0 024 Utilities Answer Date Recorded In the past 12 months has th e [employer], gas, oil, or water company threatened to [...] Medical Office Building Echo Lab [address] [facility] [address] [facility], [address] [place] [address] 02/08/2025 11:40 AM EDT Office Visit [facility] [place] [address], [address] [place] [address] Jean Jacome MD [address] [place] [address] documented as of this encounter Visit Diagnoses Not on filedocumented in this encounter Additional Health Concerns Assessment Noted Time A Body Mass Index follow-up plan has been documented for the patient 08/26/2024 2:19 PM EDT documented as of this encounter Care Teams Family Physician Relationship Specialty Start Date End Date Pcp, No [address] [place] [address] PCP - General Family Medicine 08/20/24 08/30/24 documented as of this encounter
--- OUTSIDE RECORDS SUMMARY | 2024-10-14 11:48 | XMS_ITS | Encounter Summary ---
Author Organization Healthcare Address [address] [place] [address] Care Team Providers Care Carriage Rider Name Role Phone Pcp, No Primary Care Provider Unavailabl e Daria Larson RN Unavailable Unavailable Reason for Visit * Reason Comments TCM Call Encounter Details Date Type Department Care Team ([facility] st Contact Info) Description 08/27/2024 Patient Outreach [facility] [address] [place] [address] Daria Larson, RN TCM Call Social History Tobacco Use Types Packs/Day Years [...] place to sleep or slept in a nursing home (including now)? No 08/24/2024 CAGE ASSESSMENT Answer [...] drink first t margarito in the morning (EYE-KITCHEN MECHANIC) to steady your nerves or to get [...] as of this encounter Miscellaneous Notes * Progress Notes - Daria Larson 08/27/2024 11:08 AM EDT Admit Date: 08/20/2024 Discharge Date: 08/26/2024 Hospital Service: [facility] Discharge Diagnosis: Hyponatremia 08/27/2024 TCM call # 1 Patient Reached: No Outcome: Unable to contact patient, voicemail left on patients line with call back number provided.Call attempt made to emergency contact, sister, who answered and stated she would give patient TCM nurses direct line to call back. Action: N/A Medication changes: Patient was started on metoprolol succinate 12.5mg daily, lisinopril 5mg daily,Aldactone 25mg daily, Farxiga 10mg daily, and Bumex 1mg daily, folic acid 1mg daily, Multivitamin daily, and Thiamine 100mg daily. [facility] appointment: 08/31/2024 @ 12:40pm with Mai Lyons APRN Items to address at [facility]: N/A documented in this encounter Plan of Treatment Upcoming Encounters Date Type Department Care Team (Late st Contact Info) Description 02/08/2025 10:00 AM EDT Appointment Medical Office Building Cardiac Diagnostic Testing Medical Office Building Echo Lab [address], [address] [place] [address] 02/08/2025 11:40 AM EDT Office Visit [facility] [place] [address], [address] [place] [address] Jean Jacome MD [address] [place] [address] documented as of this encounter Visit Diagnoses Not on filedocumented in this encounter Additional Health Concerns Assessment Noted Time A Body Mass Index follow-up plan has been documented for the patient 08/26/2024 2:19 PM EDT documented as of this encounter Care Teams Carriage Rider Relationship Specialty Start Date End Date Pcp, No [address] [place] [address] PCP - General Family Medicine 08/20/24 08/30/24 Daria Larson, RN TCM Nurse 08/27/24 09/26/24 documented as of this encounter
--- OUTSIDE RECORDS SUMMARY | 2024-10-14 11:48 | XMS_ITS | Encounter Summary ---
Author Organization Healthcare Address [address] [place] [address] Care Team Providers Care Tube Repairer Name Role Phone Daria Larson RN Unavailable Unavailable Jhoan Syed DO Primary Care Provider [phone] Encounter Details Date Type Department Care Team (Late st Contact Info) Description 09/20/2024 Telephone [facility] [place] [address] [place] [address] Jean Jacome MD [address] [place] [address] Social History Tobacco Use Types Packs/Day Years [...] place to sleep or slept in a detention (including now)? No 08/24/2024 CAGE ASSESSMENT Answer [...] drink first t margarito in the morning (EYE-SECURITY OFFICER SUPERVISOR) to steady your nerves or to get [...] encounter Miscellaneous Notes * Telephone Encounter - Mely Schafer - 09/20/2024 2:55 PM EST Called patient to reschedule on Dr. Jacome's template. No answer, left message on voice mail asking him to return my call. Left name and number for call back. documented in this encounter Plan of Treatment Upcoming Encounters Date Type Department Care Team (Late st Contact Info) Description 02/08/2025 10:00 AM EDT Appointment Medical Office Building Cardiac Diagnostic Testing Medical Office Building Echo Lab [address] [facility] [address] [facility] [address] [facility], [address] [place] [address] 02/08/2025 11:40 AM EDT Office Visit [facility] [place] [address] [facility] [address] [facility], [address] [place] [address] Jean Jacome MD [address] [place] [address] documented as of this encounter Visit Diagnoses Not on filedocumented in this encounter Additional Health Concerns Assessment Noted Time A Body Mass Index follow-up plan has been documented for the patient 08/31/2024 12:54 PM EDT documented as of this encounter Care Teams Tube Repairer Relationship Specialty Start Date End Date Jhoan Syed DO [address] [place] [address] PCP - General 08/31/24 Daria Larson, CODY TCM Nurse 08/27/24 09/26/24 documented as of this encounter
--- OUTSIDE RECORDS SUMMARY | 2024-10-14 11:48 | XMS_ITS | Encounter Summary ---
Author Organization Healthcare Address [address] [place] [address] Care Team Providers Care Emt I/85 Name Role Phone Daria Larson RN Unavailable Unavailable Jhoan Syed DO Primary Care Provider [phone] Encounter Details Date Type Department Care Team (Late st Contact Info) Description 09/01/[address] [facility] Discharge Clinic [address] [place] [address] Serena, February R, LAND ACQUISITION SPECIALIST [address] [address] Social History Tobacco Use Types [...] place to sleep or slept in a mcc (including now)? No 08/24/2024 CAGE ASSESSMENT Answer [...] drink first t margarito in the morning (EYE-ELECTRONIC DEVICE MONITOR) to steady your nerves or to get [...] Telephone Encounter - Ernestina Boyd RN - 09/01/2024 12:32 PM EDT Called pt's sister back and updated on lab results and bumex changes. Pt is agreeable and understands to have labs rechecked in 5 days. Ewa, pt's sister asked if labs may be done at the pt's pcp appt sep 07. RN informed her that I would refer to February to advise and will call back to update on request. No further needs at this time * Telephone Encounter - Jackie Chisholm - 09/01/2024 8:38 AM EDT Patient Phone Message Reason for Call: Patient's sister Ewa returning call to Ernestina regarding lab results. Best contact number and optimal time of day to reach caller: [phone] Note: Please do not reply to this message. Follow-up communication and further actions as a result of this message need to be communicated with the patient directly, if the patient is not active onMyChart. If the patient is active on MyChart, they will receive notification of the communication/outcome via MyChart. documented in this encounter Plan of Treatment Upcoming Encounters Date Type Department Care Team (Late st Contact Info) Description 02/08/2025 10:00 AM EDT Appointment Medical Office Building Cardiac Diagnostic Testing Medical Office Building Echo Lab [address], [address] [place] [address] 02/08/2025 11:40 AM EDT Office Visit [facility] [place] [address], [address] [place] [address] Jean Jacome MD [address] [place] [address] documented as of this encounter Visit Diagnoses Not on filedocumented in this encounter Additional Health Concerns Assessment Noted Time A Body Mass Index follow-up plan has been documented for the patient 08/31/2024 12:54 PM EDT documented as of this encounter Care Teams Emt I/85 Relationship Specialty Start Date End Date Jhoan Syed DO [address] [place] [address] PCP - General 08/31/24 Daria Larson, RN TCM Nurse 08/27/24 09/26/24 documented as of this encounter
--- OUTSIDE RECORDS SUMMARY | 2024-10-14 11:48 | XMS_ITS | Encounter Summary ---
Author Organization Healthcare Address [address] [place] [address] Care Team Providers Care Chief Wheelage Clerk Name Role Phone Daria Larson RN Unavailable Unavailable Jhoan Syed DO Primary Care Provider [phone] Encounter Details Date Type Department Care Team (Late st Contact Info) Description 09/22/2024 Telephone [facility] [place] [address] [place] [address] Jose Carlos Dempsey MD [address] [place] [address] Social History Tobacco Use Types [...] place to sleep or slept in a prison (including now)? No 08/24/2024 CAGE ASSESSMENT Answer [...] drink first t margarito in the morning (EYE-FIREMAN) to steady your nerves or to get [...] * Telephone Encounter - Mely Schafer - 09/22/2024 9:16 AM EST Called patient to discuss his appointment with Dr. Dempsey on 09/24. No answer, left message onvoice mail asking him to return my call. Left name and number for call back. documented in this encounter Plan of Treatment Upcoming Encounters Date Type Department Care Team (Late st Contact Info) Description 02/08/2025 10:00 AM EDT Appointment Medical Office Building Cardiac Diagnostic Testing Medical Office Building Echo Lab [address] [facility], [address] [place] [address] 02/08/2025 11:40 AM EDT Office Visit [facility] [place] [address] [facility], [address] [place] [address] Jean Jacome MD [address] [place] [address] documented as of this encounter Visit Diagnoses Not on filedocumented in this encounter Additional Health Concerns Assessment Noted Time A Body Mass Index follow-up plan has been documented for the patient 08/31/2024 12:54 PM EDT documented as of this encounter Care Teams Chief Wheelage Clerk Relationship Specialty Start Date End Date Jhoan Syed DO [address] [place] [address] PCP - General 08/31/24 Daria Larson, RN TCM Nurse 08/27/24 09/26/24 documented as of this encounter
--- OUTSIDE RECORDS SUMMARY | 2024-10-14 11:48 | XMS_ITS | Encounter Summary ---
Author Organization Healthcare Address [address] [place] [address] Care Team Providers Care Log Tumbler Name Role Phone YahairaJhoan Primary Care Provider [phone] Encounter Details Date Type Department Care Team (Latest Contact Info) Description 09/28/2024 Travel Social History Tobacco Use Types Packs/Day [...] place to sleep or slept in a skilled nursing (including now)? No 08/24/2024 CAGE ASSESSMENT Answer [...] t margarito in the morning (EYE-DIRECTOR OF MAINTENANCE) to steady your nerves or to get rid of a hangover? 0 08/20/2024 CAGE Questionnaire Score 0 024 Utilities Answer Date Recorded In the past 12 months has th e [employer], gas, oil, or water company threatened to [...] Building Echo Lab [address] [facility], [address] [place] [address] 02/08/2025 11:40 AM EDT Office Visit [facility] [place] [address], [address] [place] [address] Jean Jacome MD [address] [place] [address] documented as of this encounter Visit Diagnoses Not on filedocumented in this encounter Additional Health Concerns Assessment Noted Time A fall risk assessment has been complete d for the patient 09/28/2024 10:41 AM EST A Body Mass Index follow-up plan has been documented for the patient 09/28/2024 12:36 PM EST documented as of this encounter Care Teams Log Tumbler Relationship Specialty Start Date End Date Jhoan Syed DO [address] [place] [address] PCP - General 08/31/24 documented as of this encounter
--- OUTSIDE RECORDS SUMMARY | 2024-10-14 11:48 | XMS_ITS | Encounter Summary ---
Author Organization Healthcare Address [address] [place] [address] Care Team Providers Care Finished Yarn Examiner Name Role Phone YahairaJhoan Primary Care Provider [phone] Encounter Details Date Type Department Care Team (Late st Contact Info) Description 09/27/2024 Telephone [facility] [place] [address] [facility] [place] [address] Jean Jacome MD [address] [place] [address] Social History Tobacco Use Types [...] place to sleep or slept in a long-term (including now)? No 08/24/2024 CAGE ASSESSMENT Answer [...] drink first t margarito in the morning (EYE-RN HOME HEALTH) to steady your nerves or to get [...] * Telephone Encounter - Mely Schafer - 09/27/2024 2:36 PM EST Called patient to confirm appointment for 09/28. No answer, left message on voice mail. documented in this encounter Plan of Treatment Upcoming Encounters Date Type Department Care Team (Late st Contact Info) Description 02/08/2025 10:00 AM EDT Appointment Medical Office Building Cardiac Diagnostic Testing Medical Office Building Echo Lab [address] [facility] [address], [address] [place] [address] 02/08/2025 11:40 AM EDT Office Visit [facility] [place] [address] [facility], [address] [place] [address] Jean Jacome MD [address] [place] [address] documented as of this encounter Visit Diagnoses Not on filedocumented in this encounter Additional Health Concerns Assessment Noted Time A Body Mass Index follow-up plan has been documented for the patient 08/31/2024 12:54 PM EDT documented as of this encounter Care Teams Finished Yarn Examiner Relationship Specialty Start Date End Date Jhoan Syed DO [address] [place] [address] PCP - General 08/31/24 documented as of this encounter
--- OUTSIDE RECORDS SUMMARY | 2024-10-14 11:48 | XMS_ITS | Encounter Summary ---
Author Organization Healthcare Address [address] [place] [address] Care Team Providers Care Director Biology Name Role Phone Daria Larson RN Unavailable Unavailable Jhoan Syed DO Primary Care Provider [phone] Encounter Details Date Type Department Care Team (Late st Contact Info) Description 09/01/2024 Telephone [facility] Discharge Clinic [address] [place] [address] Serena, February R, MOTOR RUNNER [address] [address] Social History Tobacco Use Types [...] drink first t margarito in the morning (EYE-SANDING LINE OPERATOR) to steady your nerves or to get [...] Encounter - Ernestina Boyd RN - 09/01/2024 4:53 PM EDT Called pt's sister back to update that February confirmed labs are ok to be drawn at the pts PCP appt 09/07 and orders will be faxed to the PCP office and will follow up with pt's PCP for results. Pt's sister states she is pleased and plan to attend that appt and denies any further needs at this time. documented in this encounter Plan of Treatment Upcoming Encounters Date Type Department Care Team (Late st Contact Info) Description 02/08/2025 10:00 AM EDT Appointment Medical Office Building Cardiac Diagnostic Testing Medical Office Building Echo Lab [address] [facility], [address] [place] [phone] 02/08/2025 11:40 AM EDT Office Visit [facility] [place] [address] [facility], [address] [place] [address] Jean Jacome MD [address] [place] [phone] documented as of this encounter Visit Diagnoses Not on filedocumented in this encounter Additional Health Concerns Assessment Noted Time A Body Mass Index follow-up plan has been documented for the patient 08/31/2024 12:54 PM EDT documented as of this encounter Care Teams Director Biology Relationship Specialty Start Date End Date Jhoan Syed DO [address] [place] [address] PCP - General 08/31/24 Daria Larson, RN TCM Nurse 08/27/24 09/26/24 documented as of this encounter
--- OUTSIDE RECORDS SUMMARY | 2024-10-14 11:48 | XMS_ITS | Encounter Summary ---
Author Organization Healthcare Address [address] [place] [address] Care Team Providers Care Aquatics Coordinator Name Role Phone YahairaJhoan Primary Care Provider [phone] Encounter Details Date Type Department Care Team (Late st Contact Info) Description 10/04/2024 Telephone [facility] [place] [address] [place] [address] Aydee Rolon, RN - Outpatient Center Social History Tobacco Use Types Packs/Day Years [...] place to sleep or slept in a jail (including now)? No 08/24/2024 CAGE ASSESSMENT Answer [...] drink first t margarito in the morning (EYE-COMMERCIAL ESCROW ASSISTANT) to steady your nerves or to get [...] encounter Miscellaneous Notes * Telephone Encounter - Aydee Rolon, RN - 10/04/2024 11:30 AM EST Pt called over the weekend because he had not received his Entresto yet. I called [facility] to follow upand they left him a voicemail this morning to make arrangements for delivery. I tried calling pt with this update and after the voicemail picked up, the call was ended. documented in this encounter Plan of Treatment Upcoming Encounters Date Type Department Care Team (Late st Contact Info) Description 02/08/2025 10:00 AM EDT Appointment Medical Office Building Cardiac Diagnostic Testing Medical Office Building Echo Lab [address] [facility], [address] [place] [address] 02/08/2025 11:40 AM EDT Office Visit [facility] [place] [address] [facility], [address] [place] [address] Jean Jacome MD [address] [place] [phone] documented as of this encounter Visit Diagnoses Not on filedocumented in this encounter Additional Health Concerns Assessment Noted Time A fall risk assessment has been complete d for the patient 09/28/2024 10:41 AM EST A Body Mass Index follow-up plan has been documented for the patient 09/28/2024 12:36 PM EST documented as of this encounter Care Teams Aquatics Coordinator Relationship Specialty Start Date End Date Jhoan Syed DO [address] [place] [address] PCP - General 08/31/24 documented as of this encounter
--- OUTSIDE RECORDS SUMMARY | 2024-10-14 11:48 | XMS_ITS | Encounter Summary ---
Author Organization Healthcare Address [address] [place] [address] Care Team Providers Care Personal Banker Name Role Phone Daria Larson RN Unavailable Unavailable Jhoan Syed DO Primary Care Provider [phone] Encounter Details Date Type Department Care Team (Late st Contact Info) Description 09/20/2024 Telephone [facility] [place] [address] [place] [address] Jean Jacome MD [address] [place] [address] Social History Tobacco Use Types [...] place to sleep or slept in a group home (including now)? No 08/24/2024 CAGE ASSESSMENT [...] drink first t margarito in the morning (EYE-PAPER GRADER) to steady your nerves or to get [...] Telephone Encounter - Mely Schafer - 09/20/2024 9:40 AM EST Called patient to move him to Dr. Jacome's template. No answer, left message on voice mail asking him to return my call. Left name and number for call back. documented in this encounter Plan of Treatment Upcoming Encounters Date Type Department Care Team (Late st Contact Info) Description 02/08/2025 10:00 AM EDT Appointment Medical Office Building Cardiac Diagnostic Testing Medical Office Building Echo Lab [address] [facility], [address] [place] [phone] 02/08/2025 11:40 AM EDT Office Visit [facility] [place] [address] [facility], [address] [place] [address] Jean Jacome MD [address] [place] [phone] documented as of this encounter Visit Diagnoses Not on filedocumented in this encounter Additional Health Concerns Assessment Noted Time A Body Mass Index follow-up plan has been documented for the patient 08/31/2024 12:54 PM EDT documented as of this encounter Care Teams Personal Banker Relationship Specialty Start Date End Date Jhoan Syed DO [address] [place] [address] PCP - General 08/31/24 Daria Larson, RN TCM Nurse 08/27/24 09/26/24 documented as of this encounter
--- OUTSIDE RECORDS SUMMARY | 2024-10-14 11:48 | XMS_ITS | Encounter Summary ---
Author Organization Healthcare Address [address] [place] [address] Care Team Providers Care Valuer Name Role Phone Daria Larson RN Unavailable Unavailable Jhoan Syed DO Primary Care Provider [phone] Encounter Details Date Type Department Care Team (Late st Contact Info) Description 08/31/2024 Orders Only [facility] Discharge Clinic [address] [place] [address] Serena, February R, HOSPICE CARE SALES CONSULTANT [address] [address] Social History Tobacco Use Types [...] drink first t margarito in the morning (EYE-BACK FACER) to steady your nerves or to get [...] Building Echo Lab [address] [facility], [address] [place] [address] 02/08/2025 11:40 AM EDT Office Visit [facility] [place] [address] [facility], [address] [place] [address] Jean Jacome MD [address] [place] [phone] documented as of this encounter Visit Diagnoses Not on filedocumented in this encounter Additional Health Concerns Assessment Noted Time A Body Mass Index follow-up plan has been documented for the patient 08/31/2024 12:54 PM EDT documented as of this encounter Care Teams Valuer Relationship Specialty Start Date End Date Jhoan Syed DO [address] [place] [address] PCP - General 08/31/24 Daria Larson, RN TCM Nurse 08/27/24 09/26/24 documented as of this encounter
--- OUTSIDE RECORDS SUMMARY | 2024-10-14 11:48 | XMS_ITS | Encounter Summary ---
Author Organization Healthcare Address [address] [place] [address] Care Team Providers Care Heat Curer Name Role Phone Daria Larson RN Unavailable Unavailable Jhoan Syed DO Primary Care Provider [phone] Encounter Details Date Type Department Care Team (Late st Contact Info) Description 09/21/2024 Telephone [facility] [place] [address] [place] [address] Jean Jacome MD [address] [place] [address] Social History Tobacco Use Types [...] place to sleep or slept in a penitentiary (including now)? No 08/24/2024 CAGE ASSESSMENT Answer [...] drink first t margarito in the morning (EYE-IMAGING SERVICES DIRECTOR) to steady your nerves or to get [...] * Telephone Encounter - Mely Schafer - 09/21/2024 10:43 AM EST Called patient to reschedule his appointment with Dr. Jacome. No answer, left message on his voicemail asking him to return my call. Left name and number for call back. documented in this encounter Plan of Treatment Upcoming Encounters Date Type Department Care Team (Late st Contact Info) Description 02/08/2025 10:00 AM EDT Appointment Medical Office Building Cardiac Diagnostic Testing Medical Office Building Echo Lab [address] [facility], [address] [place] [phone] 02/08/2025 11:40 AM EDT Office Visit [facility] [place] [address] [facility], [address] [place] [address] Jean Jacome MD [address] [place] [address] documented as of this encounter Visit Diagnoses Not on filedocumented in this encounter Additional Health Concerns Assessment Noted Time A Body Mass Index follow-up plan has been documented for the patient 08/31/2024 12:54 PM EDT documented as of this encounter Care Teams Heat Curer Relationship Specialty Start Date End Date Jhoan Syed DO [address] [place] [address] PCP - General 08/31/24 Daria Larson, CODY TCM Nurse 08/27/24 09/26/24 documented as of this encounter
--- OUTSIDE RECORDS SUMMARY | 2024-10-14 11:48 | XMS_ITS | Encounter Summary ---
Author Organization Healthcare Address [address] [place] [address] Care Team Providers Care Qa Test Lead Name Role Phone Daria Larson RN Unavailable Unavailable Jhoan Syed DO Primary Care Provider [phone] Reason for Visit * Reason Comments TCM Call Encounter Details Date Type Department Care Team (Late st Contact Info) Description 08/31/2024 Patient Outreach POPULATION [facility] [address] [place] [address] Daria Larson, RN TCM Call Social History [...] drink first t margarito in the morning (EYE-AUTOMATIC DRY STARCH OPERATOR) to steady your nerves or to [...] Notes * Progress Notes - Daria Larson - 08/31/2024 8:20 AM EDT Admit Date: 08/20/2024 Discharge Date: 08/26/2024 Hospital Service: [facility] Discharge Diagnosis: Hyponatremia 08/31/2024 TCM call # 3 Patient Reached: No Outcome: Unable to contact X 3 call day attempts, voicemail left on patients line with call back number provided. Action: N/A Medication changes: Patient was started [...] Medical Office Building Echo Lab [address] [facility], [address] [place] [address] 02/08/2025 11:40 AM EDT Office Visit [facility] [place] [address] [facility], [address] [place] [address] Jean Jacome MD [address] [place] [phone] documented as of this encounter Visit Diagnoses Not on filedocumented in this encounter Additional Health Concerns Assessment Noted Time A Body Mass Index follow-up plan has been documented for the patient 08/31/2024 12:54 PM EDT documented as of this encounter Care Teams Qa Test Lead Relationship Specialty Start Date End Date Jhoan Syed DO [address] [place] [address] PCP - General 08/31/24 Daria Larson, RN TCM Nurse 08/27/24 09/26/24 documented as of this encounter
--- OUTSIDE RECORDS SUMMARY | 2024-10-14 11:48 | XMS_ITS | Encounter Summary ---
Author Organization Healthcare Address [address] [place] [address] Care Team Providers Care Virtualization Architect Name Role Phone CamiloJhoan costa Primary Care Provider [phone] Reason for Visit * Reason Onset Date Comments Med Refill 09/30/2024 Encounter Details Date Type Department Care Team (Late st Contact Info) Description 09/30/2024 Refill [facility] [place] [address] [place] [address] Aydee Rolon, RN - Outpatient Center Social [...] drink first t margarito in the morning (EYE-ORE GRADER) to steady your nerves or to [...] Telephone Encounter - Aydee Rolon, RN - 09/30/2024 3:13 PM EST Pt called and stated [facility] is not able to fill his Entresto so I sent it in to [facility]. Pt aware and will call with any concerns. documented in this encounter Plan of Treatment Upcoming Encounters Date Type Department Care Team (Late st Contact Info) Description 02/08/2025 10:00 AM EDT Appointment Medical Office Building Cardiac Diagnostic Testing Medical Office Building Echo Lab [address] [facility], [address] [place] [address] 02/08/2025 11:40 AM EDT Office Visit [facility] [place] [address] [facility], [address] [place] [address] Jean Jacome MD [address] [place] [address] documented as of this encounter Visit Diagnoses Not on filedocumented in this encounter Additional Health Concerns Assessment Noted Time A fall risk assessment has been complete d for the patient 09/28/2024 10:41 AM EST A Body Mass Index follow-up plan has been documented for the patient 09/28/2024 12:36 PM EST documented as of this encounter Care Teams Virtualization Architect Relationship Specialty Start Date End Date Jhoan Syed DO [address] [place] [address] PCP - General 08/31/24 documented as of this encounter
--- OUTSIDE RECORDS SUMMARY | 2024-10-14 11:48 | XMS_ITS | Encounter Summary ---
Author Organization Healthcare Address [address] [place] [address] Care Team Providers Care Custody Assistant Name Role Phone Pcp, No Primary Care Provider Unavailabl e Daria Larson RN Unavailable Unavailable Reason for Visit * Reason Comments TCM Call Encounter Details Date Type Department Care Team ([facility] Contact Info) Description 08/30/[address] [facility] [address] [place] [address] Daria Larson, RN TCM Call Social History [...] drink first t margarito in the morning (EYE-SENIOR DATA SCIENTIST) to steady your nerves or to get [...] * Progress Notes - Daria Larson - 08/30/2024 8:49 AM EDT Admit Date: 08/20/2024 Discharge Date: 08/26/2024 Hospital Service: [facility] Discharge Diagnosis: Hyponatremia 08/30/2024 TCM call # 2 Patient Reached: No Outcome: Unable to contact [...] [facility], [address] [place] [address] 02/08/2025 11:40 AM EDT Office Visit [facility] [place] [address] [facility], [address] [place] [address] Jean Jacome MD [address] [place] [address] documented as of this encounter Visit Diagnoses Not on filedocumented in this encounter Additional Health Concerns Assessment Noted Time A Body Mass Index follow-up plan has been documented for the patient 08/26/2024 2:19 PM EDT documented as of this encounter Care Teams Custody Assistant Relationship Specialty Start Date End Date Pcp, No [address] [place] [address] PCP - General Family Medicine 08/20/24 08/30/24 Daria Larson, RN TCM Nurse 08/27/24 09/26/24 documented as of this encounter
--- OUTSIDE RECORDS SUMMARY | 2024-10-14 11:48 | XMS_ITS | Encounter Summary ---
Author Organization Healthcare Address [address] [place] [address] Care Team Providers Care Biostatistics Manager Name Role Phone Daria Larson RN Unavailable Unavailable Jhoan Syed DO Primary Care Provider Encounter Details Date Type Department Care Team (Late st Contact Info) Description 08/31/2024 Telephone [facility] Discharge Clinic [address] [place] [address] Serena, February R, MANAGER CORE [address] [address] Social History Tobacco Use Types [...] place to sleep or slept in a half-way (including now)? No 08/24/2024 CAGE ASSESSMENT Answer [...] drink first t margarito in the morning (EYE-RECREATION PROFESSOR) to steady your nerves or to get [...] Telephone Encounter - Ernestina Boyd RN - 08/31/2024 5:13 PM EDT Attempted to call pt, no answer, LVM to call back to our clinic. Attempted to call pt's sister as previously requested, no answer, LVM to call back to our clinic. Will continue to follow * Telephone Encounter - Ernestina Boyd RN - 08/31/2024 5:13 PM EDT ----- Message from Mai Lyons APRN sent at 08/31/2024 4:58 PM EDT ----- Please call Mr. Lu and let him know his labs are good and he can safely take his bumex twice a day for the next 5 days. I will send a new prescription to his pharmacy in [place]. I would liketo see him after these 5 days to check on symptoms and repeat labs please. If we cannot get ahold of him, please call his sister Ewa (phone number is listed in my note). Thanks! documented in this encounter Plan of Treatment Upcoming Encounters Date Type Department Care Team (Late st Contact Info) Description 02/08/2025 10:00 AM EDT Appointment Medical Office Building Cardiac Diagnostic Testing Medical Office Building Echo Lab [address] [facility], [address] [place] [address] 02/08/2025 11:40 AM EDT Office Visit [facility] [place] [address] [facility], [address] [place] [address] Jean Jacome MD [address] [place] [phone] documented as of this encounter Visit Diagnoses Not on filedocumented in this encounter Additional Health Concerns Assessment Noted Time A Body Mass Index follow-up plan has been documented for the patient 08/31/2024 12:54 PM EDT documented as of this encounter Care Teams Biostatistics Manager Relationship Specialty Start Date End Date Jhoan Syed DO [address] [place] [address] PCP - General 08/31/24 Daria Larson, RN TCM Nurse 08/27/24 09/26/24 documented as of this encounter
--- OUTSIDE RECORDS SUMMARY | 2024-10-14 11:48 | XMS_ITS | Encounter Summary ---
Author Organization [facility] Address [address] [place] [address] Care Team Providers Care Dish Room Worker Name Role Phone Daria Larson RN Unavailable Unavailable Jhoan Syed DO Primary Care Provider [phone] Reason for Visit * Reason Comments Follow-up * Consultation (Routine) - Closed Specialty Diagnoses / Procedures Referred By Michelle t Referred To Contact Primary Care Diagnoses Congestive heart failure, unspecified HF chronicity, unspecified heart failure type (CMS/HCC) February, READING INTERVENTIONIST [address] [address] Phone: tel: fax: [facility] [address] [place] [address] Phone: tel: Referral ID Status Reason Start Date Expiration Date V isits Requested Visits Authorized [id number] Closed Specialty Services Required 08/26/2024 02/25/2026 1 1 Encounter Details Date Type Department Care Team (Late st Contact Info) Description 08/31/2024 12:40 PM EDT Office Visit [facility] [address] [place] [address] February, READING INTERVENTIONIST [address] [address] Congestive heart failure, unspecified HF chronicity, unspecified heart failure type (CMS/HCC) (Primary Dx); Hyponatremia; Alcohol abuse; Encounter for tobacco use cessation counseling; Healthcare maintenance; Dyspnea on exertion; Anasarca Social History Tobacco Use Types Packs/Day Years Used Date Smoking Tobacco: Every Day Cigarettes 0.3 35 Smokeless Tobacco: Current Chew Tobacco Cessation:Ready to Q uit: No Alcohol Use Standard Drinks/Week Comments Not Currently [...] place to sleep or slept in a intermediate (including now)? 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 0 08/20/2024 CAGE Questionnaire Score 0 024 Utilities Answer Date Recorded In the past 12 months has th e [employer], gas, oil, or water company threatened to shut off services in your home? No 08/24/2024 Sex and Gender Information Value Date Recorded Sex Assigned at Not on file Legal Sex Male 8:44 PM EDT Gender Identity Not on file Sexual Orientation Not on file documented as of this encounter Last Filed Vital Signs Vital Sign Reading Time Taken Comments Blood Pressure 123/89 08/31/2024 12:01 PM EDT Pulse 94 08/31/2024 12:01 PM EDT Temperature 36.4 ??C (97.5 ??F) 08/31/2024 12:01 PM E DT Respiratory Rate 18 08/31/2024 12:01 PM EDT Oxygen Saturation 98% 08/31/2024 12:01 PM EDT Inhaled Oxygen Concentration - - Weight 65.1 kg (143 lb 8.3 oz) 08/31/2024 12:01 PM EDT Height - - Body Mass Index 21.18 08/21/2024 3:51 AM EDT documented in this encounter Miscellaneous Notes * Patient Instructions - Mai Lyons R, READING INTERVENTIONIST - 08/31/2024 12:40 PM EDT We have contacted your PCP to make you an appointment with, Jhoan Syed DO, they will call you to confirm your appointment Your appointment is Sep 07 at 11:00am Location: [facility] Primary Care [address] R[place]HEL [place] [phone] Please reach out to clinic with any concerns. I will review your labs and call you to discuss increasing your bumex. At this time, please continue to take meds as ordered. Go immediately to the ER with any chest pain/palpitations/shortness of breath, seizure like activity, or stroke like symptoms (for example but not limited to: slurred speech, dizziness, one sided weakness, altered gait, facial droop, sudden terrible headache or worst headache of life) * Progress Notes - Mai Lyons APRN - 08/31/2024 12:40 PM EDT Transitional Care Management Progress Note: [id number] Visit Patient: Jaziel Lu : 1975 PCP: Pcp, No Subjective Jaziel Lu is a 48 y.o. male presenting today for follow-up after being discharged from [facility] 5 days ago. The main problem requiring admission was hyponatremia. The discharge summary and/or Transitional Care Management documentation was reviewed. Medication reconciliation was performed as indicated via the Corey as Reviewed timestamp. Jaziel Lu was contacted by Transitional Care Management services two days after his discharge. This encounter and supporting documentation was reviewed. The complexity of medical decision making for this patient's transitional care is moderate. HPI Recent hospitalization (paraphrased): Admit Date/Time: 08/20/2024 Discharge Date: 08/26/2024 48 YO with PMH sig for severe AUD who was transferred from OSH with severe hypoNa, elevated BNP with concerns of AHF and likely alcoholic hepatitis. For the acute HypoNa, it was Hypotonic hypervolemic hyponatremia which responded well to hypertonic saline bolus with mIVF of NS + Lasix. His Na was improved from 115 to 129 over several days with improvement in the LL edema. For the HF: ECHO was done and it showed severe reduction in the EF to 20 %, cards was consulted. He was started on GDMT for HF - Metoprolol succinate 12.5 mg Daily -Lisinopril 5 mg - Aldactone 25 mg - [id number] mg QD Also Diuretic was adjusted from lasix 40 mg IV to Bumex 1 mg QD For the AUD: He declined ACES help, I started him on CIWA protocol which was stopped later and he will be dc on FA, thiamine & MVI. Patient presents to high risk discharge clinic today for transition of care appointment/hospital follow-up: Today Mr. Lu presents with his sister and significant other. He reports he is SOA, worsening since his discharge but not as bad as prior to hospitalization. Notes he was getting BID twice a daywhile inpatient. Will review labs and consider increasing bumex for symptom relieve. No visible resp iratory distress on exam, lung sounds clear on exam. Reports swelling to legs is significantly improved, no swelling noted on exam. Would like any meds send to [facility] in [place]. Since discharge, patient has significantly cut down on his drinking. He typically drinks a case of beer per day with a pt of liquor (Tequila). Since his discharge he has dropped down to 2 beers per day, with no Tequila. He plans to continue to decrease his alcohol use. He complains of right upper quadrant pain since his discharge. I reviewed the chart from his hospitalization where he had a rightupper quadrant ultrasound which showed moderate fatty liver discussed this plus alcohol use was at increased risk of development of cirrhosis. Verbalized understanding. Patient reports he has also cut down on his smoking since discharge. He typically smokes 2 packs per day, he is down to 3-4 cigarettes a day. Also occasionally smokes marijuana. He also dips. He is down to 1 can since his discharge when typically he uses 1 can per day. Patient notes if we can not get a hold of him due to where he lives and poor cell phone service to please call his sister: [phone] Ewa Ayala. Patient has PCP in [place]. We were able to get him scheduled on September 07 at 11:00 a.m. We will fax discharge summary to clinic. Review of Systems: Review of Systems Constitutional: Positive for appetite change (decreased) and fatigue. Negative for activity change and fever. HENT: Positive for rhinorrhea. Negative for congestion and sore throat. Respiratory: Positive for cough (2 days ago). Negative for shortness of breath. Cardiovascular: Negative for chest pain and palpitations. Gastrointestinal: Positive for abdominal pain (started inpatient, after eating, RUQ pain) and diarrhea (started while in patient, looser than normal x2 daily). Negative for nausea and vomiting. Genitourinary: Negative for difficulty urinating and dysuria. Musculoskeletal: Positive for arthralgias (foot pain bilaterally). Negative for back pain and myalgias. Skin: Positive for rash (on tip of penis- raw) and wound (right index finger, since july). Neurological: Positive for weakness, numbness (bilateral hands) and headaches (a few times since discharge). Negative for dizziness and syncope. Psychiatric/Behavioral: Negative for suicidal ideas. The patient is nervous/anxious. PMH: AUD Objective Physical Exam Constitutional: General: He is not in acute distress. Appearance: Normal appearance. He is not ill-appearing, toxic-appearing or diaphoretic. HENT: Head: Normocephalic. Eyes: Pupils: Pupils are equal, round, and reactive to light. Cardiovascular: Rate and Rhythm: Normal rate and regular rhythm. Pulses: Normal pulses. Heart sounds: Normal heart sounds. Pulmonary: Effort: Pulmonary effort is normal. No respiratory distress. Breath sounds: Normal breath sounds. No wheezing, rhonchi or rales. Abdominal: General: Bowel sounds are normal. Palpations: Abdomen is soft. Tenderness: There is abdominal tenderness (mild RUQ). Musculoskeletal: General: Normal range of motion. Right lower leg: No edema. Left lower leg: No edema. Skin: General: Skin is warm. Capillary Refill: Capillary refill takes less than 2 seconds. Neurological: Mental Status: He is alert. Psychiatric: Mood and Affect: Mood normal. Behavior: Behavior normal. Thought Content: Thought content normal. Judgment: Judgment normal. Assessment/Plan Diagnoses and all orders for this visit: Congestive heart failure, unspecified HF chronicity, unspecified heart failure type (CMS/HCC)/ Dyspnea on exertion/anasarca -presented to ER from outside hospital on 08/20/2024 with complaints of swelling to face abdomen legs, found to be in acute heart failure. -echo showed EF estimated less than 20% with severe reduced right ventricular systolic function. - cardiology consulted, started GDMT - Metoprolol succinate 12.5 mg Daily, Lisinopril 5 mg, Aldactone 25 mg, [id number] mg every day, and Bumex 1 mg daily -since discharge, patient complains of worsening shortness of breath. But notes this is not as bad as before he went to a hospital. He currently does not have any swelling. -we will review labs, and consider increased dose of Bumex. - N-Terminal Probnp, Plasma; Future - Comprehensive metabolic panel; Future - CBC; Future -cardiology follow-up scheduled for 09/24/24 -Educated patient on strict return to ER guidelines including: Worsening shortness of breath, chestpain Hyponatremia -sodium as low was 112 during hospitalization, discharge sodium 129. - reports some mild hallucinations, but notes this we are unsure if this is from alcohol detox or not as he has had this happen in the past when he has decreasing his alcohol use -we will repeat today Alcohol abuse - previously drinking 1 case of beer and 1 pt of Tequila daily -declined aces inpatient -notes since discharge he has been drinking only 2 beers per day and no Tequila. -denies any withdrawal symptoms at this time, however he does note intermittent headaches and diarrhea with mild hallucinations. No tremors or sweating. -plans to continue to decrease alcohol -Educated patient on strict return to ER guidelines including: alcohol withdrawal symptoms Encounter for tobacco use cessation counseling -previous history of smoking 2 pack per day with using 1 can of dip per day -currently smoking 3-4 cigarettes a day and has only used 1 candidate since discharge. -plans to continue to decrease smoking in dips denies any need for assistance at this time. Healthcare maintenance -patient has [place]CP in her hometown, we were able to schedule him an appointment for follow-up on September 07, 2024. Follow up appointments: Established PCP 09/07/2024, Cardiology 09/24/24 Note to patient: The Century Cures Act makes medical notes like these available to patients inthe interest of transparency. However, be advised this is a medical document. It is intended as peer to peer communication. It is written in medical language and may contain abbreviations or verbiagethat are unfamiliar. It may appear blunt or direct. Medical documents are intended to carry relevant information, facts as evident, and the clinical opinion of the practitioner. Mai Lyons APRN 08/31/2024 11:59 AM documented in this encounter Plan of Treatment Upcoming Encounters Date Type Department Care Team (Late st Contact Info) Description 02/08/2025 10:00 AM EDT Appointment Medical Office Building Cardiac Diagnostic Testing Medical Office Building Echo Lab [address] [facility] [address] [facility], [address] [place] [id number] 02/08/2025 11:40 AM EDT Office Visit [facility] [place] [facility] [address] [facility] [address] [facility], [address] [place] [address] Jean Jacome MD [address] [place] [address] documented as of this encounter Results * (ABNORMAL) CBC (08/31/2024 1:15 PM EDT) WBC Count 9.24 3.70 - 10.30 10*3/uL LAB HEMATOLOGY METHOD 08/31/2024 4:48 PM EDT [facility] RBC Count 4.78 4.60 - 6.10 10*6/uL LAB HEMATOLOGY METHOD 08/31/2024 4:48 PM EDT [facility] HGB 16.1 13.7 - 17.5 g/dL LAB HEMATOLOGY METHOD 08/31/2024 4:48 PM EDT [facility] HCT 49.8 40.0 - 51.0 % LAB HEMATOLOGY METHOD 08/31/2024 4:48 PM EDT [facility] Platelet Count 357 155 - 369 10*3/uL LAB HEMATOLOGY METHOD 08/31/2024 4:48 PM EDT [facility] MCV 104(H) 79 - 98 fL LAB HEMATOLOGY METHOD 08/31/2024 4:48 PM EDT [facility] MCH 33.7(H) 26.0 - 32.0 pg LAB HEMATOLOGY METHOD 08/31/2024 4:48 PM EDT [facility] MCHC 32.3 30.7 - 35.5 g/dL LAB HEMATOLOGY METHOD 08/31/2024 4:48 PM EDT [facility] RDW 12.8 11.5 - 14.5 % LAB HEMATOLOGY METHOD 08/31/2024 4:48 PM EDT [facility] MPV 10.3 8.8 - 12.5 fL LAB HEMATOLOGY METHOD 08/31/2024 4:48 PM EDT [facility] nRBC 0.0 <=0.0 per 100 WBCs LAB HEMATOLOGY METHOD 08/31/2024 4:48 PM EDT [facility] Blood Venous blood specimen / Unknown Venipuncture / Unknown 08/31/2024 1:15 PM EDT 08/31/2024 1:15 PM EDT February Serena READING INTERVENTIONIST LAB BLOOD ORDERABLES Final Result [facility] [address] [place] [address] * (ABNORMAL) Comprehensive metabolic panel (08/31/2024 1:15 PM EDT) Glucose, Plasma 90 74 - 99 mg/dL 08/31/2024 4:55 PM EDT [facility] BUN, Plasma 11 7 - 21 mg/dL 08/31/2024 4:55 PM EDT [facility] Creatinine, Plasma 0.90 0.70 - 1.20 mg/dL 08/31/2024 4:55 PM EDT [facility] BUN/Creatinine Ratio 12 08/31/2024 4:55 PM EDT [facility] Sodium, Plasma 133(L) 136 - 145 mmol/L 08/31/2024 4:55 PM EDT [facility] Potassium, Plasma 4.0 3.6 - 4.9 mmol/L 08/31/2024 4:55 PM EDT [facility] Chloride, Plasma 93(L) 97 - 107 mmol/L 08/31/2024 4:55 PM EDT [facility] CO2, Plasma 28 22 - 29 mmol/L 08/31/2024 4:55 PM EDT [facility] Anion Gap 12 6 - 16 mmol/L 08/31/2024 4:55 PM EDT [facility] Total Calcium, Plasma 9.5 8.9 - 10.2 mg/dL 08/31/2024 4:55 PM EDT [facility] Total Protein 7.7 6.3 - 7.9 g/dL 08/31/2024 4:55 PM EDT [facility] Albumin, Plasma 3.9 3.5 - 5.2 g/dL 08/31/2024 4:55 PM EDT [facility] AST, Plasma 48 10 - 50 U/L 08/31/2024 4:55 PM EDT [facility] ALT, Plasma 50 10 - 50 U/L 08/31/2024 4:55 PM EDT [facility] Alkaline Phosphatase, Plasma 199(H) 40 - 115 U/L 08/31/2024 4:55 PM EDT [facility] Total Bilirubin, Plasma 0.8 0.2 - 1.1 mg/dL 08/31/2024 4:55 PM EDT [facility] eGFRcr 106.0 mL/min/1.7 3m*2 08/31/2024 4:55 PM EDT [facility] Comment:Reported eGFRcr in m L/min/1.73m2 is based the CKD-EPI 2020 equation that does not use a race coefficient. Blood Venous blood specimen / Unknown Venipuncture / Unknown 08/31/2024 1:15 PM EDT 08/31/2024 1:15 PM EDT February Serena READING INTERVENTIONIST LAB BLOOD ORDERABLES Final Result [facility] [address] [place] [address] * (ABNORMAL) N-Terminal Probnp, Plasma (08/31/2024 1:15 PM EDT) N-Terminal, PROBNP, Plasma 2,614(H) 0 - 449 pg/mL 08/31/2024 4:55 PM EDT [facility] Blood Venous blood specimen / Unknown Venipuncture / Unknown 08/31/2024 1:15 PM EDT 08/31/2024 1:15 PM EDT February Serena READING INTERVENTIONIST LAB BLOOD ORDERABLES Final Result [facility] [address] [place] [address] documented in this encounter Visit Diagnoses Diagnosis Congestive heart failure, unspecified HF chronicity, unspecified heart failure type (CMS/HCC)- Primary Hyponatremia Hyposmolality and/or hyponatremia Alcohol abuse Nondependent alcohol abuse, unspecified drinking behavior Encounter for tobacco use cessation counseling Healthcare maintenance Dyspnea on exertion Other dyspnea and respiratory abnormality Anasarca Edema documented in this encounter Additional Health Concerns Assessment Noted Time A Body Mass Index follow-up plan has been documented for the patient 08/31/2024 12:54 PM EDT documented as of this encounter Care Teams Dish Room Worker Relationship Specialty Start Date End Date Jhoan Syed DO [address] [place] [address] PCP - General 08/31/24 Daria Larson, RN TCM Nurse 08/27/24 09/26/24 documented as of this encounter
--- OUTSIDE RECORDS SUMMARY | 2024-10-14 11:48 | XMS_ITS | Encounter Summary ---
Author Organization Healthcare Address [address] 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 0 08/20/2024 CAGE Questionnaire Score 0 024 Utilities Answer Date Recorded In the past 12 months has th e [employer], gas, oil, or water company threatened to [...] Office Building Echo Lab [address] [facility], [address] [place] [address] 02/08/2025 11:40 AM EDT Office Visit [facility] [place] [address], [address] [place] [phone] Jean Jacome MD [address] [place] [address] documented as of this encounter Visit Diagnoses Not on filedocumented in this encounter Additional Health Concerns Assessment Noted Time A Body Mass Index follow-up plan has been documented for the patient 08/26/2024 2:19 PM EDT documented as of this encounter Care Teams Scheduling Representative Relationship Specialty Start Date End Date Pcp, No [address] [place] [address] PCP - General Family Medicine 08/20/24 08/30/24 documented as of this encounter
--- OUTSIDE RECORDS SUMMARY | 2024-10-14 11:48 | XMS_ITS | Encounter Summary ---
Author Organization Healthcare Address [address] [place] [address] Care Team Providers Care Automotive Electrical Helper Name Role Phone Daria Larson RN Unavailable Unavailable Jhoan Syed DO Primary Care Provider [phone] Encounter Details Date Type Department Care Team (Late st Contact Info) Description 09/02/2024 Orders Only [facility] [address] [place] [address] Serena, February R, DIPPER OPERATOR [address] [place] [address] Congestive heart failure, unspecified HF [...] place to sleep or slept in a longterm (including now)? No 08/24/2024 CAGE ASSESSMENT Answer [...] drink first t margarito in the morning (EYE-NURSE CASE MANAGER) to steady your nerves or to get rid of a hangover? 0 08/20/2024 CAGE Questionnaire Score 0 024 Utilities Answer Date Recorded In the past 12 months has th e [employer], gas, oil, or water company threatened to shut off services in your home? No 08/24/2024 Sex and Gender Information Value Date Recorded Sex Assigned at Not on file Legal Sex Male 8:44 PM EDT Gender Identity Not on file Sexual Orientation Not on file documented as of this encounter Plan of Treatment Upcoming Encounters Date Type Department Care Team ([facility] st Contact Info) Description 02/08/2025 10:00 AM EDT Appointment Medical Office Building Cardiac Diagnostic Testing Medical Office Building Echo Lab [address], [address] [place] [address] 02/08/2025 11:40 AM EDT Office Visit [facility] [address], [address] [place] [address] Jean Jacome MD [address] [place] [address] Scheduled Orders Name Type Priority Associated Diagnoses Orde r Schedule CBC Lab Routine Congestive heart failure, unspecified HF chronicity, unspecified heart failure type (CMS/HCC) Expected: 09/02/2024 (Approximate), Expires: 03/03/2026 Comprehensive metabolic panel Lab Routine Congestive heart failure, unspecified HF chronicity, unspecified heart failure type (CMS/HCC) Expected: 09/02/2024 (Approximate), Expires: 03/03/2026 Magnesium, Plasma Lab Routine Congestive heart failure, unspecified HF chronicity, unspecified heart failure type (CMS/HCC) Expected: 09/02/2024 (Approximate), Expires: 03/03/2026 N-Terminal Probnp, Plasma Lab Routine Congestive heart failure, unspecified HF chronicity, unspecified heart failure type (CMS/HCC) Expected: 09/02/2024 (Approximate), Expires: 03/03/2026 documented as of this encounter Visit Diagnoses Diagnosis Congestive heart failure, unspecified HF chronicity, unspecified heart failure type (CMS/HCC)- Primary documented in this encounter Additional Health Concerns Assessment Noted Time A Body Mass Index follow-up plan has been documented for the patient 08/31/2024 12:54 PM EDT documented as of this encounter Care Teams Automotive Electrical Helper Relationship Specialty Start Date End Date Jhoan Syed DO [address] [place] [address] PCP - General 08/31/24 Daria Larson, RN TCM Nurse 08/27/24 09/26/24 documented as of this encounter
--- OUTSIDE RECORDS SUMMARY | 2024-10-14 11:48 | XMS_ITS | Encounter Summary ---
Author Organization [facility] Address [address] [id number] Care Team Providers Care Screw Machine Hand Name Role Phone Yahaira Jhoan Velázquez Primary Care Provider [phone] Reason for Referral * Imaging (Routine) - Pending Review Specialty Diagnoses / Procedures Referred By Contkarol t Referred To Contact Cardiology Diagnoses Congestive heart failure, unspecified HF chronicity, unspecified heart failure type (CMS/HCC) Procedures Echo, Adult Transthoracic Complete Jean Jacome MD [address] [place] [address] Phone: tel: fax: Referral ID Status Reason Start Date Expiration Date Visits Requested Visits Authorized [id number] Pending Review Perform Procedure 03/30/2026 1 1 Reason for Visit * Consultation (Routine) - Closed Specialty Diagnoses / Procedures Referred By Contac t Referred To Contact Cardiology Diagnoses Hyponatremia Alcohol abuse Congestive heart failure, unspecified HF chronicity, unspecified heart failure type (CMS/HCC) Arti Stanley MD [address] [place] [address] Phone: tel: fax: Referral ID Status Reason Start Date Expiration Date V isits Requested Visits Authorized [id number] Closed Specialty Services Required 08/26/2024 02/25/2026 1 1 Encounter Details Date Type Department Care Team (Late st Contact Info) Description 09/28/2024 11:00 AM EST Office Visit [facility] [place] [address], [address] [place] [address] Jean Jacome MD [address] [place] [address] Hyponatremia; Alcohol abuse; Congestive heart failure, unspecified HF chronicity, unspecified heart failure type (CMS/HCC) Social History Tobacco Use Types Packs/Day Years [...] drink first t margarito in the morning (EYE-RADIO STATION AUDIO ENGINEER) to steady your nerves or to [...] Pulse 95 09/28/2024 10:39 AM EST Temperature - - Respiratory Rate - - Oxygen Saturation 100% 09/28/2024 10:39 AM EST Inhaled Oxygen Concentration - - Weight 64.2 kg (141 lb 8.6 oz) 09/28/2024 10:39 AM EST Height 175.3 cm (5' 9 ) 09/28/2024 10:39 AM EST Body Mass Index 20.9 09/28/2024 10:39 AM EST documented in this encounter Miscellaneous Notes * Patient Instructions - Aydee Rolon RN - 09/28/2024 11:00 AM EST Increase your Metoprolol to 50 mg daily. Stop taking your Lisinopril. You will start taking Entresto in 48 hours. We will call to remind you to do labs in 2 weeks to make sure the Entresto is agreeing with your body. You will see Leticia 2-3 times before coming back to see Dr. Jacome to assist with med titration. Those appointments will be telehealth. * Progress Notes - Jean Jacome MD - 09/28/2024 11:00 AM EST Images from the original note were not included. Note to patient: The Cures Act makes medical notes like these available to patients inthe interest of transparency. However, be advised that this is a medical document. It is intended as [id number] communication. It is written in medical language and may contain abbreviations or verbiage that are unfamiliar. It may appear blunt or direct. Medical documents are intended to carry relevant information, facts as evident and the clinical opinion of the practitioner. [facility] Outpatient Visit Date of Service: 09/28/2024 Patient Name Jaziel Lu Date of 1975 Encounter Provider: Jean Jacome MD Referring Provider: Arti Stanley MD Chief Complaint Jaziel Lu is a 48 y.o. male presenting for evaluation of heart failure with reduced ejection fraction, alcohol related cardiomyopathy at the request of Arti Stanley MD. He is here today with his sister and girlfriend. Prior Cardiac and Medical History/History of Present Illness Mr. Lu is a 48 year old male with PMH of severe alcohol use disorder was admitted from 08/20/24 to 08/26/[address] [facility] as a transfer from an OSH with severe hypotonic hypervolemic hyponatremia, elevated BNP with concerns of AHF and likely alcoholic hepatitis. Hyponatremia responded well to hypertonic saline bolus + Lasix. His Na was improved from 115 to 129 over several days with improvement in the LL edema. Echo showed an EF of 20 %. He was started on GDMT for HF; Metoprolol succinate 12.5 mg Daily, lisinopril 5 mg, Aldactone 25 mg, [id number] mg every day. Diuretic was adjusted from lasix40 mg IV to Bumex 1 mg every day. He says 3-4 years he noted he was having chest pain and had a LHC done at [facility] 3 yearsand was told that he did not have any coronary artery disease. Today, he endorses shortness of breath, would get winded if he walks more than a block. Before the hospitalization, he had bendopnea for a few months . He has had PND and Orthopnea (3 pillows) since June 2024. He has been lying in a recliner since June 2024. Lightheadedness + with change in position. He had leg edema 2-3 weeks before he was admitted. He has occasional palpitations (once or twice in a week). He feels like he is losing muscle mass since the past 6 months. He gets also gets fatigued easily. . He was first diagnosed with cardiac issues in Aug 2024. Today, he reports the following heart failure symptoms: - Dyspnea: Yes - Orthopnea: Yes - PND: Yes - Bendopnea: Yes - Leg swelling: Yes - Chest pain: Yes - Lightheadedness/dizziness: Yes - Syncope: No - Palpitations: Yes - Abdominal bloating/early satiety: Yes - Fatigue: Yes Overall, he reports being limited by cardiovascular symptoms. He has not been exercising. He endorses the following exercise tolerance: 1 1/2 blocks, <2 flights of stairs until He has to stop due to: fatigue and shortness of breath. He reports these symptoms are improving. He has been adherent to a low salt, low fat diet. He has been adherent to his medications. The patients other medical problems are as listed below. Problem List/Past Medical History - Alcohol use disorder Past Surgical History No past surgical history on file. Allergies Allergies as of 09/28/2024 - Reviewed 09/28/2024 Allergen Reaction Noted Cephalexin Shortness of breath and Swelling 08/21/2024 Medication List Current Outpatient Medications Medication Sig Dispense Refill acetaminophen (Tylenol) 500 MG tablet Take 1 tablet (500 mg) by mouth every 6 (six) hours if neededfor pain. bumetanide (Bumex) 1 MG tablet Take 1 tablet (1 mg) by mouth 2 (two) times a day. (Patient taking differently: Take 1 tablet (1 mg) by mouth 1 (one) time each day.) 60 tablet 0 dapagliflozin (Farxiga) 10 MG tablet Take 1 tablet (10 mg) by mouth 1 (one) time each day. 30 tablet 1 folic acid (Folvite) 1 MG tablet Take 1 tablet (1 mg) by mouth 1 (one) time each day. 30 tablet 1 hydrOXYzine pamoate (Vistaril) 50 MG capsule Take 1 capsule (50 mg) by mouth every 6 (six) hours ifneeded for anxiety. 30 capsule 0 lisinopril 5 MG tablet Take 1 tablet (5 mg) by mouth 1 (one) time each day. 30 tablet 1 metoprolol succinate XL (Toprol-XL) 25 MG 24 hr tablet Take 0.5 tablets (12.5 mg) by mouth 1 (one) time each day. Do not crush or chew. (Patient taking differently: Take 1 tablet (25 mg) by mouth 1 (one) time each day. Do not crush or chew.) 15 tablet 1 spironolactone (Aldactone) 25 MG tablet Take 1 tablet (25 mg) by mouth 1 (one) time each day. 30 each 1 traZODone (Desyrel) 50 MG tablet Take 1 tablet (50 mg) by mouth at night if needed for sleep. 30 tablet 0 thiamine (Vitamin B-1) 100 MG tablet Take 1 tablet (100 mg) by mouth 1 (one) time each day. (Patient not taking: Reported on 09/28/2024) 30 tablet 1 No current facility-administered medications for this visit. Social History - Tobacco: Active smoker, started at age 17, used to pack 2 packs till his hospitalization in August 2024. Now 1/2 pack a day. - Alcohol: since he was 17 years old, before it was a case before (24 16-ounce bottles), 1 pint a day of Tequila, decreased amount in Aug 2024 when he got admitted. He now drinks 6 beers a day. No longer drinks tequila. 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 - Sister (58 years) no cardiac history - Sister (60 years) had a loop recorder placed, had a TIA - No children - No history of heart disease in his nephews or nieces. Review of Systems ROS - as above Physical Exam Vitals: 09/28/24 1039 BP: 113/80 BP Location: Left arm Patient Position: Sitting Pulse: 95 SpO2: 100% Weight: 64.2 kg (141 lb 8.6 oz) Height: 1.753 m (5' 9 ) Body mass index is 20.9 kg/m??. Gen: Appears reasonably comfortable and in no acute distress, sitting comfortably HEENT: Mucus membranes moist, oropharynx clear, no scleral icterus Neck: Supple, no lymphadenopathy, no thyromegaly Respiratory: Clear to auscultation bilaterally Cardiovascular: PMI non displaced. No RV lift. Jugular venous pressure was noted at 5 cm of water with a negative hepatojugular reflex. A normal rate and regular rhythm was present with normal S1 andS2 without gallops, rubs or murmurs. Extremities were warm and well perfused and pulses were round and full (2+). Gastrointestinal: The abdomen was soft, non-tender/non-distended Musculoskeletal: Moves all extremities, strength grossly intact Extremities: No pitting edema. No significant cyanosis or clubbing Hematologic: No petechiae or purpura Skin: No obvious rashes or lesions Neurological: Grossly intact Lab Results I personally reviewed the following laboratory results: Chemistry Lab Results Component Value Date/Time NA 133 (L) 08/31/2024 1315 K 4.0 08/31/2024 1315 CL 93 (L) 08/31/2024 1315 CO2 28 08/31/2024 1315 BUN 11 08/31/2024 1315 CREATININE 0.90 08/31/2024 1315 Lab Results Component Value Date/Time CALCIUM 9.5 08/31/2024 1315 ALKPHOS 199 (H) 08/31/2024 1315 AST 48 08/31/2024 1315 ALT 50 08/31/2024 1315 BILITOT 0.8 08/31/2024 1315 Lab Results Component Value Date WBC 9.24 08/31/2024 RBC 4.78 08/31/2024 HGB 16.1 08/31/2024 HCT 49.8 08/31/2024 MCV 104 (H) 08/31/2024 MCH 33.7 (H) 08/31/2024 MCHC 32.3 08/31/2024 PLT 357 08/31/2024 RDW 12.8 08/31/2024 MONOPCT 11 08/23/2024 EOSPCT 1 08/23/2024 BASOPCT 1 08/23/2024 NEUTROABS 5.84 08/23/2024 LYMPHSABS 1.54 08/23/2024 EOSABS 0.05 08/23/2024 Lab Results Component Value Date TSH 2.60 08/20/2024 DIAGNOSTIC STUDIES - EKG (08/20/24): Sinus tachycardia, PACs, LVH Echocardiograms - TTE (08/20/24): LVEDD 59 mm, LVEF 14%, RV: Moderately dilated, severely reduced function, mild MR, mild to moderate TR Cardiac catheterizations - Had a LHC at [facility] 3 years ago which he reports as normal. Will obtain records. Other Non-Invasive Imaging - Says he had a stress test at [facility] 3 years ago - will obtain records. Impression and Plan: In summary, Jaziel Lu is a 48 y.o. male presenting as a new patient for alcohol related cardiomyopathy and HFrEF with EF <20% with NYHA III symptoms. Today, the patient appears Euvolemic,Warm and well perfused. LV systolic dysfunction: Severe RV dysfunction: Severe Etiology: Drug/toxin-induced cardiomyopathy (Alcohol) ACC/AHA stage: C NYHA functional class: III As such, I have made the following recommendations: Increase metoprolol succinate to 50 mg daily Stop lisinopril. Allow for 36 hours of wash out for the lisinopril and then start entresto 24/26 mg BID. Continue dapagliflozin 10 mg daily and spironolactone 25 mg daily Spend a significant amount of time encouraging alcohol and smoking cessation. Offered enrollment inthe smoking cessation study at but he declined. Continue bumex 1 mg daily Referral to medication uptitration clinic Will have him return to clinic in January 2025 with a same day echo to reassess LV and RV function. Evidence Based Medical Therapy for Heart Failure: - ACEi/ARB/ARNI: Currently up-titrating - Aldosterone antagonist: Maximally tolerated dose - Beta-jessee: Currently up-titrating - Digoxin: Not indicated - Hydralazine/Nitrates: will consider in the future if we are maxed out on entresto - Ivabradine: Not indicated - SGLT2i: Maximally tolerated dose Device Therapy for Heart Failure: - ICD/BiV-PPM/BiV-ICD: Currently up-titrating GDMT prior to repeating TTE and determining candidacy - MitraClip: mild to moderate MR, not a candidate - Barostim: not indicated currently - CardioMEMs: not indicated currently but will consider in the future if he has a hospitalization Co-Morbidities Perspective: - Atrial fibrillation: no - CAD: no - Diabetes: will obtain an A1C and lipid profile at the next draw - Iron-deficiency anemia: ordered iron studies - Lifestyle/weight/BMI: encouraged a healthy diet and exercise. - Sleep apnea: no - Substance use: Encouraged alcohol and smoking session. Offered resources but the patient would like to stop himself\ Labs: CBC, CMP, NT-proBNP, iron studies. Return to clinic in 4 months. I spent 55 minutes in the care of this patient including review of past medical records, updating his/her chart, interpretation of diagnostic testing and discussing diagnosis and current treatment plans. I provided counseling (i.e. importance of exercise, fluid management, medication adherence and follow up etc), as well as coordination of care as detailed above. Jean Jacome MD Advanced Heart Failure/Transplant Cardiology [facility] documented in this encounter Plan of Treatment Upcoming Encounters Date Type Department Care Team (Late st Contact Info) Description 02/08/2025 10:00 AM EDT Appointment Medical Office Building Cardiac Diagnostic Testing Medical Office Building Echo Lab [address], [address] [place] [address] 02/08/2025 11:40 AM EDT Office Visit [facility] [place] [address], [address] [place] [address] Jean Jacome MD [address] [place] [address] Scheduled Orders Name Type Priority Associated Diagnoses Order Schedule Echo, Adult Transthoracic Complete Echocardiography Routine Congestive heart failure, unspecified HF chronicity, unspecified heart failure type (CMS/HCC) 1 Occurrences starting 09/28/2024 until 09/28/2026 Basic metabolic panel Lab Routine Congestive heart failure, unspecified HF chronicity, unspecified heart failure type (CMS/HCC) Expected: 10/12/2024 (Approximate), Expires: 03/28/2026 Lipid panel Lab Routine Congestive heart failure, unspecified HF chronicity, unspecified heart failure type (CMS/HCC) Expected: 10/12/2024 (Approximate), Expires: 03/28/2026 Hemoglobin A1c Lab Routine Congestive heart failure, unspecified HF chronicity, unspecified heart failure type (CMS/HCC) Expected: 10/12/2024 (Approximate), Expires: 03/28/2026 documented as of this encounter Procedures Procedure Name Priority Date/Time Associated Diagnosis [...] HF chronicity, unspecified heart failure type (CMS/HCC) documented in this encounter Results * (ABNORMAL) N-Terminal Probnp (09/28/2024 5:06 PM EST) N-Terminal, PROBNP, Plasma 1,457(H) 0 - 449 pg/mL 09/28/2024 5:06 PM EST [facility] Blood Venous blood specimen / Unknown 09/28/2024 12:26 PM EST us Jean Jacome MD LAB BLOOD ORDERABLES Final Res ult Performing Organization Address [facility] Co de Phone Number [facility] [address] [place] [address] * Ferritin (09/28/2024 4:46 PM EST) Ferritin, Serum 199 20 - 400 ng/mL 09/28/2024 4:46 PM EST [facility] Blood Venous blood specimen / Unknown 09/28/2024 12:26 PM EST us Jean Jacome MD LAB BLOOD ORDERABLES Final Res ult Performing Organization Address [facility] Co de Phone Number [facility] [address] [place] [address] * Iron & Total Iron Binding Capacity, Plasma (Includes Transferrin) (09/28/2024 4:43 PM EST) Iron, Plasma 127 50 - 170 ug/dL 09/28/2024 4:43 PM EST [facility] Transferrin, Plasma 277 200 - 360 mg/dL 09/28/2024 4:43 PM EST [facility] Total Iron Binding Capacity, Plasma 346 240 - 450 ug/mL 09/28/2024 4:43 PM EST [facility] Transferrin Saturation 37 14 - 50 % 09/28/2024 4:43 PM EST [facility] Blood Venous blood specimen / Unknown 09/28/2024 12:26 PM EST us Jean Jacome MD LAB BLOOD ORDERABLES Final Res ult [facility] [address] [place] [address] * (ABNORMAL) Comprehensive metabolic panel (09/28/2024 4:43 PM EST) Glucose, Plasma 111(H) 74 - 99 mg/dL 09/28/2024 4:43 PM EST [facility] BUN, Plasma 7 7 - 21 mg/dL 09/28/2024 4:43 PM EST [facility] Creatinine, Plasma 0.83 0.70 - 1.20 mg/dL 09/28/2024 4:43 PM EST [facility] BUN/Creatinine Ratio 8 09/28/2024 4:43 PM EST [facility] Sodium, Plasma 134(L) 136 - 145 mmol/L 09/28/2024 4:43 PM EST [facility] Potassium, Plasma 4.2 3.6 - 4.9 mmol/L 09/28/2024 4:43 PM EST [facility] Chloride, Plasma 93(L) 97 - 107 mmol/L 09/28/2024 4:43 PM EST [facility] CO2, Plasma 27 22 - 29 mmol/L 09/28/2024 4:43 PM EST [facility] Anion Gap 14 6 - 16 mmol/L 09/28/2024 4:43 PM EST [facility] Total Calcium, Plasma 9.6 8.9 - 10.2 mg/dL 09/28/2024 4:43 PM EST [facility] Total Protein 8.1(H) 6.3 - 7.9 g/dL 09/28/2024 4:43 PM EST [facility] Albumin, Plasma 4.5 3.5 - 5.2 g/dL 09/28/2024 4:43 PM EST [facility] AST, Plasma 31 10 - 50 U/L 09/28/2024 4:43 PM EST [facility] ALT, Plasma 22 10 - 50 U/L 09/28/2024 4:43 PM EST [facility] Alkaline Phosphatase, Plasma 79 40 - 115 U/L 09/28/2024 4:43 PM EST [facility] Total Bilirubin, Plasma 0.5 0.2 - 1.1 mg/dL 09/28/2024 4:43 PM EST [facility] eGFRcr 108.6 mL/min/1.7 3m*2 09/28/2024 4:43 PM EST [facility] Comment:Reported eGFRcr in m L/min/1.73m2 is based the CKD-EPI 2020 equation that does not use a race coefficient. Blood Venous blood specimen / Unknown 09/28/2024 12:26 PM EST us Jean Jacome MD LAB BLOOD ORDERABLES Final Res ult [facility] [address] [place] [address] * CBC W/O Differential (09/28/2024 12:17 PM EST) WBC Count 9.91 3.70 - 10.30 10*3/uL LAB HEMATOLOGY METHOD 09/28/2024 2:38 PM EST [facility] RBC Count 5.27 4.60 - 6.10 10*6/uL LAB HEMATOLOGY METHOD 09/28/2024 2:38 PM EST [facility] HGB 16.8 13.7 - 17.5 g/dL LAB HEMATOLOGY METHOD 09/28/2024 2:38 PM EST [facility] HCT 50.2 40.0 - 51.0 % LAB HEMATOLOGY METHOD 09/28/2024 2:38 PM EST [facility] Platelet Count 240 155 - 369 10*3/uL LAB HEMATOLOGY METHOD 09/28/2024 2:38 PM EST [facility] MCV 95 79 - 98 fL LAB HEMATOLOGY METHOD 09/28/2024 2:38 PM EST [facility] MCH 31.9 26.0 - 32.0 pg LAB HEMATOLOGY METHOD 09/28/2024 2:38 PM EST [facility] MCHC 33.5 30.7 - 35.5 g/dL LAB HEMATOLOGY METHOD 09/28/2024 2:38 PM EST [facility] RDW 12.3 11.5 - 14.5 % LAB HEMATOLOGY METHOD 09/28/2024 2:38 PM EST [facility] MPV 10.6 8.8 - 12.5 fL LAB HEMATOLOGY METHOD 09/28/2024 2:38 PM EST [facility] nRBC 0.0 <=0.0 per 100 WBCs LAB HEMATOLOGY METHOD 09/28/2024 2:38 PM EST [facility] Blood Venous blood specimen / Unknown Venipuncture / Unknown 09/28/2024 12:17 PM EST 09/28/2024 12:26 PM EST us Jean Jacome MD LAB BLOOD ORDERABLES Final Res ult [facility] [address] [place] [address] documented in this encounter Visit Diagnoses Diagnosis Hyponatremia Hyposmolality and/or hyponatremia Alcohol abuse Nondependent alcohol abuse, unspecified drinking behavior Congestive heart failure, unspecified HF chronicity, unspecified heart failure type (CMS/HCC) documented in this encounter Additional Health Concerns Assessment Noted Time A fall risk assessment has been complete d for the patient 09/28/2024 10:41 AM EST A Body Mass Index follow-up plan has been documented for the patient 09/28/2024 12:36 PM EST documented as of this encounter Care Teams Screw Machine Hand Relationship Specialty Start Date End Date Jhoan Syed DO [address] [place] [address] PCP - General 08/31/24 documented as of this encounter
--- OUTSIDE RECORDS SUMMARY | 2024-10-14 11:48 | XMS_ITS | Encounter Summary ---
Author Organization Healthcare Address [address] [place] [address] Care Team Providers Care Counter Maker Name Role Phone Daria Larson RN Unavailable Unavailable Jhoan Syed DO Primary Care Provider [phone] Encounter Details Date Type Department Care Team (Late st Contact Info) Description 09/22/2024 Telephone [facility] [place] [address] [place] [address] Jean Jacome MD [address] [place] [address] Social History Tobacco Use Types [...] drink first t margarito in the morning (EYE-TILE MOLDER) to steady your nerves or to get [...] Telephone Encounter - Mely Schafer - 09/22/2024 1:17 PM EST Patient returned my call and has been rescheduled with Dr. Jacome on at 11:00. He was given the address and instructed to bring all medications, photo ID and insurance cards. He verbalized understanding. documented in this encounter Plan of Treatment Upcoming Encounters Date Type Department Care Team (Late st Contact Info) Description 02/08/2025 10:00 AM EDT Appointment Medical Office Building Cardiac Diagnostic Testing Medical Office Building Echo Lab [address], [address] [place] [id number] 02/08/2025 11:40 AM EDT Office Visit [facility] [place] [address], [address] [place] [address] Jean Jacome MD [address] [place] [address] documented as of this encounter Visit Diagnoses Not on filedocumented in this encounter Additional Health Concerns Assessment Noted Time A Body Mass Index follow-up plan has been documented for the patient 08/31/2024 12:54 PM EDT documented as of this encounter Care Teams Counter Maker Relationship Specialty Start Date End Date Jhoan Syed DO [address] [place] [address] PCP - General 08/31/24 Daria Larson, RN TCM Nurse 08/27/24 09/26/24 documented as of this encounter
--- OUTSIDE RECORDS SUMMARY | 2024-10-14 11:49 | XMS_ITS | Encounter Summary ---
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 0 08/20/2024 CAGE Questionnaire Score 0 024 Sex and Gender Information Value Date Recorded Sex Assigned at Not on file Legal Sex Male 8:44 PM EDT Gender Identity Not on file Sexual Orientation Not on file documented as of this encounter Medications at Time of Discharge acetaminophen (Tylenol) 500 MG tablet Take 1 tablet (500 mg) by mouth every 6 (six) hours if needed for pain. dapagliflozin (Farxiga) 10 MG tabletIndications :Left Systolic Heart Failure Take 1 tablet (10 mg) by mouth 1 (one) time each day. 30 tablet 1 08/26/2024 10/25/2024 folic acid (Folvite) 1 MG tablet Take 1 tablet (1 mg) by mouth 1 (one) time each day. 30 tablet 1 08/26/2024 10/25/2024 hydrOXYzine pamoate (Vistaril) 50 MG capsule Take 1 capsule (50 mg) by mouth every 6 (six) hours if needed for anxiety. 30 capsule 08/26/2024 spironolactone (Aldactone) 25 MG tablet Take 1 tablet (25 mg) by mouth 1 (one) time each day. 30 each 1 08/26/2024 10/25/2024 thiamine (Vitamin B-1) 100 MG tablet Take 1 tablet (100 mg) by mouth 1 (one) time each day. 30 tablet 1 08/26/2024 10/25/2024 traZODone (Desyrel) 50 MG tablet Take 1 tablet (50 mg) by mouth at night if needed for sleep. 30 tablet 08/26/2024 aspirin 81 MG EC tablet Take 1 tablet (81 mg) by mouth 1 (one) time each day. 08/26/2024 bumetanide (Bumex) 1 MG tablet Take 1 tablet (1 mg) by mouth 1 (one) time each day. 30 tablet 1 08/26/2024 08/31/2024 ibuprofen 200 MG tablet Take 2 tablets (400 mg) by mouth every 8 (eight) hours if needed for mild pain. 08/31/2024 lisinopril 5 MG tablet Take 1 tablet (5 mg) by mouth 1 (one) time each day. 30 tablet 1 08/26/2024 09/28/2024 metoprolol succinate XL (Toprol-XL) 25 MG 24 hr tablet Take 0.5 tablets (12.5 mg) by mouth 1 (one) time each day. Do not crush or chew. 15 tablet 1 08/26/2024 09/28/2024 documented as of this encounter Plan of Treatment Upcoming Encounters Date Type Department Care Team (Late st Contact Info) Description 02/08/2025 10:00 AM EDT Appointment Medical Office Building Cardiac Diagnostic Testing Medical Office Building Echo Lab [address], [address] [place] [phone] 02/08/2025 11:40 AM EDT Office Visit [facility] [address], [address] [place] [address] Jean Jacome MD [address] [place] [address] documented as of this encounter Visit Diagnoses Not on filedocumented in this encounter Additional Health Concerns Assessment Noted Time A fall risk assessment has been complete d for the patient 09/28/2024 10:41 AM EST A Body Mass Index follow-up plan has been documented for the patient 09/28/2024 12:36 PM EST documented as of this encounter Care Teams Onsite Health Coach Relationship Specialty Start Date End Date Pcp, No [address] [place] [address] PCP - General Family Medicine 08/20/24 08/30/24 documented as of this encounter
--- OUTSIDE RECORDS SUMMARY | 2024-10-14 11:49 | XMS_ITS | Encounter Summary ---
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) to steady your nerves or to [...] Medical Office Building Echo Lab [address], [address] [place] [phone] 02/08/2025 11:40 AM EDT Office Visit [facility] [place] [address], [address] [place] [phone] Jean Jacome MD [address] [place] [address] documented as of this encounter Visit Diagnoses Not on filedocumented in this encounter Additional Health Concerns Assessment Noted Time A Body Mass Index follow-up plan has been documented for the patient 08/26/2024 2:19 PM EDT documented as of this encounter Care Teams Hardware Technician Relationship Specialty Start Date End Date Pcp, No [address] [place] [address] PCP - General Family Medicine 08/20/24 08/30/24 documented as of this encounter
--- OUTSIDE RECORDS SUMMARY | 2024-10-14 11:49 | XMS_ITS | Encounter Summary ---
Author Organization Healthcare Address [address] [place] [address] Care Team Providers Care Marine Fuel Dock Attendant Name Role Phone Unavailable Primary Care Provider Unavailabl e Encounter Details Date Type Department Care Team (Latest Contact Info) Description 08/02/2024 Travel Social History Tobacco Use Types Packs/Day Years Used Date Smoking Tobacco: Every Day Cigarettes Smokeless Tobacco: Current Alcohol Use Standard Drinks/Week Comments Yes 84 (1 standard drink = 0.6 oz pure alcohol) half pint to pint daily/every other day CAGE ASSESSMENT Answer Date Recorded Cage unable to access Not on file 08/02/2024 Maximum number of drinks you had on a given occasion in the last month? 5 or more drinks 08/02/2024 How many alcoholic Beverages do you typically drink in a week? 15 or more per week 08/02/2024 Have you ever felt you shoul d CUT down on your drinking? 0 08/02/2024 Have you been ANNOYED by peo ple criticizing your drinking? 0 08/02/2024 Have you felt GUILTY about your drinking? 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 1 08/02/2024 CAGE Questionnaire Score 1 024 Sex and Gender Information Value Date [...] Office Building Echo Lab [address], [address] [place] [address] 02/08/2025 11:40 AM EDT Office Visit [facility] [place] [facility] [address], [address] [place] [phone] Jean Jacome MD [address] [place] [phone] documented as of this encounter Visit Diagnoses Not on filedocumented in this encounter
--- OUTSIDE RECORDS SUMMARY | 2024-10-14 11:49 | XMS_ITS | Encounter Summary ---
Author Organization Healthcare Address [address] [place] [address] Care Team Providers Care Shaker Screen Operator Name Role Phone Unavailable Primary Care Provider Unavailabl e Reason for Visit * Reason Comments Finger Injury Encounter Details Date Type Department Care Team (Late st Contact Info) Description 08/02/2024 8:09 PM EDT - 08/02/2024 10:03 PM EDT Emergency [facility] [address] [place] [address] Phoenix Perry MD [address] [place] [address] Laceration of right index finger without foreign body without damage to nail, initial encounter (Primary Dx) Discharge Disposition: Home or Self Care Social History Tobacco Use Types Packs/Day Years Used Date Smoking Tobacco: Every Day Cigarettes Smokeless Tobacco: Current Tobacco Cessation:Ready to Q uit: Not Asked; Counseling Given: Not Answered Alcohol Use Standard Drinks/Week Comments Yes 84 [...] drink 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) to 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 your nerves or to get [...] Sign Reading Time Taken Comments Blood Pressure 131/98 08/02/2024 10:02 PM EDT Pulse 114 08/02/2024 10:02 PM EDT Temperature 36.7 ??C (98.1 ??F) 08/02/2024 10:02 PM E DT Respiratory Rate 16 08/02/2024 10:02 PM EDT Oxygen Saturation 97% 08/02/2024 10:02 PM EDT Inhaled Oxygen Concentration - - Weight 65.8 kg (145 lb) 08/02/2024 6:30 PM EDT Height 175.3 cm (5' 9 ) 08/02/2024 6:30 PM EDT Body Mass Index 21.41 08/02/2024 6:30 PM EDT documented in this encounter Discharge Instructions * Discharge Instructions* Jose Root MD - 08/02/2024 9:51 PM EDT You were seen and evaluated in the Emergency Department. Please return to ED if your symptoms worsen, change in location, change in severity, new symptoms develop or if you become concerned for your health. Please follow-up with your PCP within 7-10 days for suture removal. Keep finger clean and dry and in the finger splint to allow for laceratin to fully heal. Take Cephalexin four times daily for 5 days. documented in this encounter Medications at Time of Discharge cephalexin (Keflex) 500 MG capsule Take 1 capsule (500 mg) by mouth 4 (four) times a day for 5 days. 20 capsule 08/02/2024 08/07/2024 documented as of this encounter Miscellaneous Notes * ED Procedure Note - Jose Root MD - 08/02/2024 6:26 PM EDTAssociated Order(s): Laceration Repair Procedure Reason: Finger laceration Laceration Repair Performed by: Jose Root MD Authorized by: Phoenix Perry MD Consent: Consent obtained: Verbal Consent given by: Patient Risks, benefits, and alternatives were discussed: yes Risks discussed: Infection, need for additional repair, nerve damage, vascular damage, poor wound healing, poor cosmetic result, tendon damage, retained foreign body and pain Alternatives discussed: No treatment, delayed treatment and observation Noonan protocol: Imaging studies available: yes Patient identity confirmed: Verbally with patient and arm band Anesthesia: Anesthesia method: Nerve block Block location: Digital nerve block Block needle gauge: 25 G Block anesthetic: Lidocaine 1% w/o epi Block technique: Dorsal surface block Block injection procedure: Anatomic landmarks identified, negative aspiration for blood, introducedneedle and incremental injection Block outcome: Anesthesia achieved Laceration details: Location: Finger Finger location: R index finger (Dorsal aspect) Length (cm): 2.5 Depth (mm): 4 Pre-procedure details: Preparation: Patient was prepped and draped in usual sterile fashion and imaging obtained to evaluate for foreign bodies Exploration: Limited defect created (wound extended): yes Hemostasis achieved with: Direct pressure Imaging obtained: x-ray Imaging outcome: foreign body not noted Wound exploration: wound explored through full range of motion and entire depth of wound visualized Wound exploration comment: No tendon involvement on my exam. Full wound bed was exposed during repair. I was able to visualize the entirety of the tendon. Pt was able to flex and extend the finger without pain or difficulty. I visualized no defects within the tendon at rest&movement Wound extent: no foreign bodies/material noted, no tendon damage noted, no underlying fracture noted and no vascular damage noted Contaminated: no Treatment: Area cleansed with: Saline Amount of cleaning: Standard Irrigation solution: Sterile saline Irrigation volume: 100ml Irrigation method: Syringe Visualized foreign bodies/material removed: no Debridement: Minimal Undermining: None Scar revision: no Skin repair: Repair method: Sutures Suture size: 5-0 Suture material: Nylon Suture technique: Simple interrupted Number of sutures: 7 Approximation: Approximation: Close Repair type: Repair type: Simple Post-procedure details: Dressing: Non-adherent dressing, splint for protection and tube gauze (Finger splint) Procedure completion: Tolerated well, no immediate complications Jose Root MD Resident 08/03/24 1111 Cosigned by Phoenix Perry MD at 08/05/2024 4:55 PM EDT Associated attestation - Phoenix Perry MD - 08/05/2024 4:55 PM EDT I saw and evaluated the patient with the resident/fellow. I discussed the case with the resident/fellow and agree with the findings and plan as documented. I was present during the critical and schumacher portions of the procedure and immediately available to furnish services the entire duration. See resident note for details. * ED Provider Notes - Jose Root MD - 08/02/2024 6:26 PM EDT Images from the original note were not included. - HPI Chief Complaint Patient presents with Finger Injury PIT NOTE Jaziel Lu is a 48 y.o. male who presents to the ED with finger injury. Pt documents he cuthis right index finger with a chainsaw after drinking. Pt reports he was seen at an urgent care today where he was not given any medications and did not have any imaging performed. Pt's spouse notes the pt's finger beings shooting blood out after he bends it. Pt documents he drinks a 12 pack of beer daily. Pt's spouse reports the pt has poor circulation as baseline. Patient denies fever, chills, constipation and diarrhea. History provided by: Patient and spouse chronometer repairer used: No I saw and evaluated the patient and agree with the above assessment. In summary, patient has a laceration to dorsal aspect of right index finger. Patient denies any other injuries. No other obvious trauma on my initial evaluation. Upon arrival to ED, patient is afebrile, HDS, and grossly without neurological deficits. Pt denies fever, chills, chest pain, abd pain, SOA, n/v, weakness, numbness/tingling. Patient History History reviewed. No pertinent past medical history. History reviewed. No pertinent surgical history. No family history on file. Tobacco Use Smoking status: Every Day Types: Cigarettes Smokeless tobacco: Current Vaping Use Vaping status: Never Used Substance Use Topics Alcohol use: Yes Alcohol/week: 84.0 standard drinks of alcohol Types: 84 Cans of beer per week Comment: half pint to pint daily/every other day Drug use: Yes Types: Marijuana Allergies: No Known Allergies Physical Exam ED Triage Vitals [08/02/24 1830] Temp Heart Rate Resp BP 37.1 ??C (98.7 ??F) (!) 124 18 118/78 SpO2 Temp Source Heart Rate Source Patient Position 99 % Oral -- -- BP Location FiO2 (%) -- -- Physical Exam Constitutional: General: He is not in acute distress. Appearance: He is not ill-appearing. HENT: Head: Normocephalic and atraumatic. Comments: No facial swelling Mouth/Throat: Mouth: Mucous membranes are moist. Pharynx: Oropharynx is clear. Eyes: Pupils: Pupils are equal, round, and reactive to light. Cardiovascular: Rate and Rhythm: Normal rate. Pulmonary: Effort: Pulmonary effort is normal. No respiratory distress. Breath sounds: Normal air entry. Comments: Speaking full sentences. Symmetric chest rise Abdominal: General: There is no distension. Palpations: Abdomen is soft. Tenderness: There is no abdominal tenderness. Musculoskeletal: General: No deformity. Normal range of motion. Cervical back: Normal range of motion. Comments: Atraumatic, moves all extremities spontaneously Skin: General: Skin is warm. Capillary Refill: Capillary refill takes less than 2 seconds. Comments: 2.5 cm Laceration to the dorsal aspect of his index finger. Neurovascular intact. Neurological: Mental Status: He is alert and oriented to person, place, and time. Mental status is at baseline. Sensory: No sensory deficit. Comments: Awake Psychiatric: Behavior: Behavior normal. CIWA-Ar Total: 0 Entriken Coma Scale Score: 15 ED Course & MDM - Assessment: 48 y.o. male presents to ED with complaint of finger injury. It should be noted that the chronic conditions includes alcohol use disorder, which currently is not at goal therapy. This complicates theclinical picture because it Comorbidities: increases the amount and complexity of data to be reviewed and increases the risk for morbidity Differential Diagnosis: laceration, abrasion, acute fracture, tendon injury, ligament injury, vascular injury, nerve injury In order to fully explore the differential diagnosis the following treatments and tests were ordered: ED Medication Administration from 08/02/2024 1826 to 08/03/2024 1105 Date/Time Order Dose Route Action 08/02/20241903 EDT ceFAZolin (Ancef) injection 2 g 2 g Intravenous Given 08/02/20241903 EDT Tdap (BoostRIX) 5-2.5-18.5 LF-MCG/0.5 vaccine 0.5 mL 0.5 mL Intramuscular Given 08/02/20242133 EDT morphine PF 4 mg 4 mg Intravenous Not Given All Other Orders Ordered Status Ordering Provider 08/02/241999 CMP STAT Final result NICOL KILGORE 08/02/241999 CBC w/diff STAT Final result NICOL KILGORE 08/02/241999 Protime-INR STAT Final result JABIER INDIRA Joseph 08/02/241999 APTT STAT Final result JABIER INDIRA Joseph 08/02/241999 Hepatitis C Antibody - ED Once Final result JABIER INDIRA Joseph 08/02/241999 ED Protocol - HIV 1/2 Antibody/Antigen Screen Once Final result JABIER SUSAN Jake 08/02/241999 ED HIV 1/2 Antibody/Antigen Screen w/Reflex to HIV 1/2 Differentiation PROCEDURE ONCE Final result NICOL KILGORE 08/02/241999 XR Hand Right 3+ Views Once Final result JABIER INDIRA Joseph 08/02/24 1850 Continuous Canceled PERRY [facility] C ED Course as of 08/03/24 1105 Mon Aug 02, 20242023 Hemoglobin(!): 12.9 [DK] 2200 Pt was placed in a finger splint and will be sent home with Keflex. Upon reassessment, the patient remains hemodynamically stable, saturating well on room air, and grossly neurologically intact.Additionally, the patient feels that our medical interventions have resolved their initial presenting symptoms. At this time all questions have been answered and all parties are agreeable with the plan and the patient Was discharged Home [DK] 220 Xray negative for any acute fractures [DK] 2201 Laceration repaired at bedside. No tendon involvement on my exam. Full wound bed was exposed during repair. I was able to visualize the entirety of the tendon. Pt was able to flex and extend thefinger without pain or difficulty. I visualized no defects within the tendon at rest or during movement. See procedure note for details. [DK] ED Course User Index [DK] Jose Root MD Clinical Impressions as of 08/03/24 1105 Laceration of right index finger without foreign body without damage to nail, initial encounter Social Determinates of Health Risks (including Economic Stability, Education and level of understanding, Healthcare access and quality and concerning social factors): Acute or chronic drug and alcohol use Ultimately, this patient was Was discharged Home (Discharge) The encounter diagnosis was Laceration of right index finger without foreign body without damage to nail, initial encounter. . Patient was counseled on the diagnoses. Discharge medications if any are listed below. Listed medications are thought be either curative for listed diagnoses orwill help control ongoing symptoms. Patient is requested to follow up with Patient's Primary Care Provider in order to obtain routine follow-up. Instructions on follow up as well as precautions to return to the ER provided verbally by the EM provider, as well as written in patients discharge education packet. Date/Time: 08/03/2024/11:05 AM Entered by Jared Alicea acting as scribe for Dr. Kilgore. Attending Attestation: The documentation was recorded by Jared Alicea, acting as scribe in my presence at the time of the encounter and accurately reflects the service I personally performed. ED Prescriptions Medication Sig Dispense Start Date End Date Auth. Provider cephalexin (Keflex) 500 MG capsule Take 1 capsule (500 mg) by mouth 4 (four) times a day for 5 days. 20 capsule 08/02/2024 08/07/2024 Phoenix Perry MD Discharge Instructions You were seen and evaluated in the Emergency Department. Please return to ED if your symptoms worsen, change in location, change in severity, new symptoms develop or if you become concerned for your health. Please follow-up with your PCP within 7-10 days for suture removal. Keep finger clean and dry and in the finger splint to allow for laceratin to fully heal. Take Cephalexin four times daily for 5 days. Disposition Discharge AVS (Printed 08/02/2024) Follow-Ups: Schedule an appointment in 1 week (08/09/2024); For suture removal, Return to ED sooner if symptoms worsen - Jose Root MD Resident 08/03/24 1106 Cosigned by Phoenix Perry MD at 08/05/2024 4:55 PM EDT Associated attestation - Phoenix Perry MD - 08/05/2024 4:55 PM EDT I saw and evaluated the patient with the resident/fellow. I discussed the case with the resident/fellow and agree with the findings and plan as documented. * ED Triage Notes - Pat Jacobs RN - 08/02/2024 6:26 PM EDT Cut right index finger w/ chainsaw. [facility], no imagining or medications at [facility], told to come here. Tdap unknown documented in this encounter Plan of Treatment Upcoming Encounters Date Type Department Care Team (Late st Contact Info) Description 02/08/2025 10:00 AM EDT Appointment Medical Office Building Cardiac Diagnostic Testing Medical Office Building Echo Lab [address], [address] [place] [address] 02/08/2025 11:40 AM EDT Office Visit [facility] [place] [address], [address] [place] [address] Jean Jacome MD [address] [place] [phone] documented as of this encounter Procedures Procedure Name Priority Date/Time Associated Diagnosis Comments XR HAND RIGHT 3+ VIEWS STAT 8:21 [...] APPLICATION DERMABOND Routine 08/02/2024 6:26 PM EDT GA RESUPERF WND BODY <2.5CM Routine 08/02/2024 6:26 PM EDT documented in this encounter Results * XR Hand Right 3+ Views (08/02/2024 [...] Reactive Non Reactive 08/02/2024 9:03 PM EDT [facility] Comment:Screening for HIV 1 & 2 antibodies, and P24 antigen is NONREACTIVE. No confirmatory testing is required. Blood Venous blood specimen / Unknown Venipuncture / Unknown 08/02/2024 8:08 PM EDT 08/02/2024 8:22 PM EDT us Nicol Kilgore MD LAB BLOOD ORDERABLES Final Re sult [facility] [address] [place] [address] * Hepatitis C Antibody - ED (08/02/2024 8:08 PM EDT) Hepatitis C Antibody Negative Negative 08/02/2024 10:30 PM EDT [facility] Blood Venous blood specimen / Unknown Venipuncture / Unknown 08/02/2024 8:08 PM EDT 08/02/2024 8:22 PM EDT us Nicol Kilgore MD LAB BLOOD ORDERABLES Final Re sult Performing Organization Address [facility] Co de Phone Number [facility] [address] [place] [address] * APTT (08/02/2024 8:08 PM EDT) aPTT 33 25 - 35 sec 08/02/2024 8:34 PM EDT [facility] Blood Venous blood specimen / Unknown Venipuncture / Unknown 08/02/2024 8:08 PM EDT 08/02/2024 8:12 PM EDT us Nicol Kilgore MD LAB BLOOD ORDERABLES Final Re sult Performing Organization Address [facility] de Phone Number [facility] [address] [place] [address] * (ABNORMAL) Protime-INR (08/02/2024 8:08 PM EDT) Prothrombin Time 14.4(H) 12.0 - 14.3 sec 08/02/2024 8:34 PM EDT [facility] INR 1.2(H) 0.9 - 1.1 08/02/2024 8:34 PM EDT [facility] Blood Venous blood specimen / Unknown Venipuncture / Unknown 08/02/2024 8:08 PM EDT 08/02/2024 8:12 PM EDT Narrative [facility] - 08/02/2024 8:34 PM EDT OPTIMAL INR RANGES FOR PATIENT ON ORAL ANTICOAGULANT THERAPY Prevention of venous thromboembolism ?INR 2.0 to 3.0 In patients with heart disease: Atrial fibrillation ?INR 2.0 to 3.0 Valvular heart disease ? INR 2.0 to 3.0 Tissue heart valves ?INR 2.0 to 3.0 Mechanical prosthetic valves ? INR 2.5 to 3.5 Prevention of recurrent NJ ? INR 2.5 to 3.5 us Nicol Kilgore MD LAB BLOOD ORDERABLES Final Re sult [facility] [address] [place] [address] * (ABNORMAL) CBC w/diff (08/02/2024 8:08 PM EDT) WBC Count 6.22 3.70 - 10.30 10*3/uL LAB HEMATOLOGY METHOD 08/02/2024 8:18 PM EDT [facility] RBC Count 3.78(L) 4.60 - 6.10 10*6/uL LAB HEMATOLOGY METHOD 08/02/2024 8:18 PM EDT [facility] HGB 12.9(L) 13.7 - 17.5 g/dL LAB HEMATOLOGY METHOD 08/02/2024 8:18 PM EDT [facility] HCT 38.3(L) 40.0 - 51.0 % LAB HEMATOLOGY METHOD 08/02/2024 8:18 PM EDT [facility] Platelet Count 227 155 - 369 10*3/uL LAB HEMATOLOGY METHOD 08/02/2024 8:18 PM EDT [facility] MCV 101(H) 79 - 98 fL LAB HEMATOLOGY METHOD 08/02/2024 8:18 PM EDT [facility] MCH 34.1(H) 26.0 - 32.0 pg LAB HEMATOLOGY METHOD 08/02/2024 8:18 PM EDT [facility] MCHC 33.7 30.7 - 35.5 g/dL LAB HEMATOLOGY METHOD 08/02/2024 8:18 PM EDT [facility] RDW 13.0 11.5 - 14.5 % LAB HEMATOLOGY METHOD 08/02/2024 8:18 PM EDT [facility] MPV 10.2 8.8 - 12.5 fL LAB HEMATOLOGY METHOD 08/02/2024 8:18 PM EDT [facility] nRBC 0.0 <=0.0 per 100 WBCs LAB HEMATOLOGY METHOD 08/02/2024 8:18 PM EDT [facility] Differential Type Automated LAB HEMATOLOGY METHOD 08/02/2024 8:18 PM EDT [facility] Neutrophils % 64.0 % LAB HEMATOLOGY METHOD 08/02/2024 8:18 PM EDT [facility] Lymphocytes % 25.0 % LAB HEMATOLOGY METHOD 08/02/2024 8:18 PM EDT [facility] Monocytes % 9.0 % LAB HEMATOLOGY METHOD 08/02/2024 8:18 PM EDT [facility] Eosinophils % 1.0 % LAB HEMATOLOGY METHOD 08/02/2024 8:18 PM EDT [facility] Basophils % 1.0 % LAB HEMATOLOGY METHOD 08/02/2024 8:18 PM EDT [facility] Immature Granulocytes % 0.0 % LAB HEMATOLOGY METHOD 08/02/2024 8:18 PM EDT [facility] Neutrophils Absolute 4.01 1.60 - 6.10 10*3/uL LAB HEMATOLOGY METHOD 08/02/2024 8:18 PM EDT [facility] Lymphocytes Absolute 1.53 1.20 - 3.90 10*3/uL LAB HEMATOLOGY METHOD 08/02/2024 8:18 PM EDT [facility] Monocytes Absolute 0.58 0.30 - 0.90 10*3/uL LAB HEMATOLOGY METHOD 08/02/2024 8:18 PM EDT [facility] Eosinophils Absolute 0.04 0.00 - 0.50 10*3/uL LAB HEMATOLOGY METHOD 08/02/2024 8:18 PM EDT [facility] Basophils Absolute 0.04 0.00 - 0.10 10*3/uL LAB HEMATOLOGY METHOD 08/02/2024 8:18 PM EDT [facility] Immature Granulocytes Absolute 0.02 0.00 - 0.06 10*3/uL LAB HEMATOLOGY METHOD 08/02/2024 8:18 PM EDT [facility] Blood Venous blood specimen / Unknown Venipuncture / Unknown 08/02/2024 8:08 PM EDT 08/02/2024 8:12 PM EDT [facility] - 08/02/2024 8:18 PM EDT Therapeutic decision making should be based on absolute values, rather than percentages. us Nicol Kilgore MD LAB BLOOD ORDERABLES Final Re sult [facility] [address] [place] [address] * (ABNORMAL) CMP (08/02/2024 8:08 PM EDT) Glucose, Plasma 107(H) 74 - 99 mg/dL 08/02/2024 8:41 PM EDT [facility] BUN, Plasma 7 7 - 21 mg/dL 08/02/2024 8:41 PM EDT [facility] Creatinine, Plasma 0.76 0.70 - 1.20 mg/dL 08/02/2024 8:41 PM EDT [facility] BUN/Creatinine Ratio 9 08/02/2024 8:41 PM EDT [facility] Sodium, Plasma 132(L) 136 - 145 mmol/L 08/02/2024 8:41 PM EDT [facility] Potassium, Plasma 4.8 3.6 - 4.9 mmol/L 08/02/2024 8:41 PM EDT [facility] Chloride, Plasma 95(L) 97 - 107 mmol/L 08/02/2024 8:41 PM EDT [facility] CO2, Plasma 25 22 - 29 mmol/L 08/02/2024 8:41 PM EDT [facility] Anion Gap 12 6 - 16 mmol/L 08/02/2024 8:41 PM EDT [facility] Total Calcium, Plasma 8.8(L) 8.9 - 10.2 mg/dL 08/02/2024 8:41 PM EDT [facility] Total Protein 7.5 6.3 - 7.9 g/dL 08/02/2024 8:41 PM EDT [facility] Albumin, Plasma 4.1 3.5 - 5.2 g/dL 08/02/2024 8:41 PM EDT [facility] AST, Plasma 223(H) 10 - 50 U/L 08/02/2024 8:41 PM EDT [facility] ALT, Plasma 157(H) 10 - 50 U/L 08/02/2024 8:41 PM EDT [facility] Alkaline Phosphatase, Plasma 257(H) 40 - 115 U/L 08/02/2024 8:41 PM EDT [facility] Total Bilirubin, Plasma 0.6 0.2 - 1.1 mg/dL 08/02/2024 8:41 PM EDT [facility] eGFRcr 111.6 mL/min/1.7 3m*2 08/02/2024 8:41 PM EDT [facility] Comment:Reported eGFRcr in m L/min/1.73m2 is based the CKD-EPI 2020 equation that does not use a race coefficient. Blood Venous blood specimen / Unknown Venipuncture / Unknown 08/02/2024 8:08 PM EDT 08/02/2024 8:12 PM EDT us Nicol Kilgore MD LAB BLOOD ORDERABLES Final Re sult [facility] [address] [place] [address] * GA RESUPERF WND BODY <2.5CM, HC APPLICATION DERMABOND (08/02/2024 6:26 PM EDT) Narrative Phoenix Perry MD - 08/02/2024 6:26 PM EDT Jose Root MD ? 08/03/2024 11:11 AM Laceration Repair Performed by: Jose Root MD Authorized by: Phoenix Perry MD ?? Consent: ??Consent obtained: ??Verbal ??Consent given by: ??Patient ??Risks, benefits, and alternatives were discussed: yes ?Risks discussed: ??Infection, need for additional repair, nerve damage, vascular damage, poor wound healing, poor cosmetic result, tendon damage, retained foreign body and pain ??Alternatives discussed: ??No treatment, delayed treatment and observation [place]onan protocol: ??Imaging studies available: yes ?Patient identity [...] completion: ??Tolerated well, no immediate complications us Phoenix Perry MD IN CLINIC/BEDSIDE ORDERABLES Final Result documented in this encounter Visit Diagnoses Diagnosis Laceration of right index finger without foreign body without damage to nail, initial encounter- Primary documented in this encounter Administered Medications Inactive Administered Medications - up to 3 most recent administrations Medication Order MAR Action Action Date Dose Rate Site ceFAZolin (Ancef) injection 2 g 2 g, Intravenous, Once, 1 dose, On Fri08/02/24 at 1855, STAT Given 08/02/2024 7:04 PM EDT 2 g documented in this encounter Active and Recently Administered Medications Times are shown in EDT. Scheduled Medication Order 07/31/2024 08/01/2024 08/02/2024 ceFAZolin (Ancef) injection 2 g (COMPLETED) 2 g, Intravenous, Once, 1 dose, On Fri08/02/24 at 1855, STAT 1904 (Given - Provid er: Ricki Tijerina RN) morphine PF 4 mg 4 mg, Intravenous, Once, 1 dose, On Fri08/02/24 at 2005, STAT 2134 (Not Given - Pr ovider: Jazmin Su - Reason: Patient/family refused) documented in this encounter
--- OUTSIDE RECORDS SUMMARY | 2024-10-14 11:49 | XMS_ITS ---
Author Organization [facility] Address [address] [place] [address] Care Team Providers Care Insect Control Inspector Name Role Phone Jhoan Syed DO Primary Care Provider [phone] Transitional Care Management Status:Closed (Closed) Start date:08/27/2024 Enrollment reason:Identified using hospital discharge data End date:09/26/2024 Close reason:Patient graduated Overview This episode type is for outpatient care managers enrolling patients in the CMS Transitional Care Management program. Continued Care and Services Coordination
--- OUTSIDE RECORDS SUMMARY | 2024-10-14 11:49 | XMS_ITS | Encounter Summary ---
Author Organization Healthcare Address [address] [place] [address] Care Team Providers Care Practice Director Name Role Phone Pcp, No Primary Care Provider Unavailabl e Encounter Details Date Type Department Care Team (Late st Contact Info) Description 08/20/2024 Orders Only External Location [address] [place] [address] Provider, External Social History Tobacco Use Types Packs/Day Years [...] place to sleep or slept in a care home (including now)? No 08/24/2024 CAGE ASSESSMENT [...] drink first t margarito in the morning ([employer]) to steady your nerves or to get [...] Office Building Echo Lab [address], [address] [place] [address] 02/08/2025 11:40 AM EDT Office Visit [facility] [address], [address] [place] [id number] Jean Jacome MD [address] [place] [address] documented as of this encounter Procedures Procedure Name Priority Date/Time Associated Diagnosis Comments XR OUTSIDE IMAGES 08/20/2024 3:44 PM EDT documented in this encounter Results * XR OUTSIDE IMAGES (08/20/2024 3:44 PM EDT) Anatomical Region Laterality Modality Radiographic Angelita ging 08/20/2024 3:44 PM EDT us External Provider IMG XR PROCEDURES Final Result documented in this encounter Visit Diagnoses Not on filedocumented in this encounter Additional Health Concerns Assessment Noted Time A Body Mass Index follow-up plan has been documented for the patient 08/26/2024 2:19 PM EDT documented as of this encounter Care Teams Practice Director Relationship Specialty Start Date End Date Pcp, No [address] [place] [address] PCP - General Family Medicine 08/20/24 08/30/24 documented as of this encounter
[2024-10-14 11:55] VITALS: BMI 17.7
[2024-10-14 12:05] VITALS: BP 144/69; PULSE 87; RESP 16; TEMP 36.4; O2SAT 100
[2024-10-14] MEDS: IVABRADINE HCL 7.5MG TABLET PO (12:12)
[2024-10-14] MEDS: METOPROLOL TARTRATE 50MG TABLET PO (12:13)
[2024-10-14 12:16] LABS: Chloride 97 mmol/L (98-107); Potassium 3.9 mmoL/L (3.5-5.1); Sodium 134 mmol/L (136-145)
[2024-10-14 12:19] LABS: Anion Gap 6.9 mEq/L (5-15); Blood Urea Nitrogen 13 mg/dl (9-20); Carbon Dioxide 34 mmol/L (22.0-30.0); Creatinine Clearance Estimated 59 mL/min (50-200); Estimated Glomerular Filt Rate 65 ml/min (>60); GFR (African American) 79 ML/MIN (>60); Glucose 87 mg/dl (74-100)
[2024-10-14 13:30] VITALS: BP 132/82; PULSE 64; RESP 18; O2SAT 98
[2024-10-14 13:34] VITALS: BP 106/70; PULSE 64; RESP 18; O2SAT 98
[2024-10-14] MEDS: NITROGLYCERIN 0.4MG SL TABLET SL (13:34)
[2024-10-14 13:38] VITALS: BP 98/62; PULSE 65; O2SAT 100
[2024-10-14 13:42] VITALS: BP 90/56; PULSE 63; RESP 18; O2SAT 100
[2024-10-14] MEDS: IOPAMIDOL-370 (76%);100ML BOTTLE 85 ML IV (14:03)
[2024-10-14] MEDS: SODIUM CHLORIDE 0.9% 10ML SYR (RAD ONLY) 10 ML IV (14:03)
[2024-10-14] MEDS: 0.9 % SODIUM CHLORIDE 50 ML VIAL IV (14:03)
== END 2024-10-14 13:50 | disposition home or self-care (01) ==
PROVIDERS: PCP Internal Medicine; Visit Provider Physician Assistant
DX: I42.6 Alcoholic cardiomyopathy (principal); R94.31 Abnormal electrocardiogram [ECG] [EKG]; I10 Essential (primary) hypertension; R06.02 Shortness of breath; R07.9 Chest pain, unspecified
CPT/HCPCS: 75574; 80048; 93308; Q9967

== ENCOUNTER 2024-10-22 13:29 | Outpatient (CLI) | payer BC, SELFPAY ==
[2024-10-22 14:03] LABS: Hemoglobin A1C 6.3 % (4.0-6.0)
[2024-10-22 14:09] LABS: Chloride 99 mmol/L (98-107); Potassium 3.8 mmoL/L (3.5-5.1); Sodium 137 mmol/L (136-145)
[2024-10-22 14:12] LABS: Anion Gap 8.8 mEq/L (5-15); Blood Urea Nitrogen 11 mg/dl (9-20); Carbon Dioxide 33 mmol/L (22.0-30.0); Cholesterol 175 mg/dl (140-200); Estimated Glomerular Filt Rate 104 ml/min (>60); GFR (African American) 125 ML/MIN (>60); Triglycerides 235 mg/dl (30-150); VLDL Cholesterol 47 mg/dL (0-40)
[2024-10-22 14:13] LABS: Calcium 9.4 mg/dl (8.4-10.2); Chol/HDL Ratio 5.5 (1-3.5); Glucose 95 mg/dl (74-100); HDL Cholesterol 32 mg/dl (40-60)
[2024-10-22 14:24] LABS: Direct LDL Cholesterol 97.84 mg/dL (100-129)
== END 2024-10-22 23:59 | disposition home or self-care (01) ==
PROVIDERS: PCP Internal Medicine; Visit Provider Internal Medicine
DX: I50.9 Heart failure, unspecified (principal)
CPT/HCPCS: 36415; 80048; 80061; 83036

== ENCOUNTER 2024-11-04 10:11 | Outpatient (CLI) | payer BC, SELFPAY ==
[2024-11-04] MEDS: 0.9 % SODIUM CHLORIDE 50 ML VIAL IV (12:10)
[2024-11-04] MEDS: SODIUM CHLORIDE 0.9% 10ML SYR (RAD ONLY) 10 ML IV (12:10)
[2024-11-04] MEDS: GADOTERIDOL INJ 20ML SYRINGE 15 ML IV (12:10)
== END 2024-11-04 23:59 | disposition home or self-care (01) ==
LOC: RAD 10:11
PROVIDERS: PCP Internal Medicine; Visit Provider Physician Assistant
DX: I42.6 Alcoholic cardiomyopathy (principal); I50.20 Unspecified systolic (congestive) heart failure; R94.31 Abnormal electrocardiogram [ECG] [EKG]; R42 Dizziness and giddiness
CPT/HCPCS: 75561; A9576

== ENCOUNTER 2024-12-14 20:49 | Observation (INO) | payer MEDICAID, SELFPAY ==
[2024-12-14] VITALS (7 sets, daily range): BP systolic 97–116; BP diastolic 57–70; PULSE 67–89; RESP 13–21; TEMP 36.6–37.1; O2SAT 97–100; BMI 22.1
--- NOTE | 2024-12-14 20:57 | XR_ITS ---
PROCEDURE INFORMATION: Exam: XR Chest Exam date and time: 12/14/2024 9:00 PM Age: 49 years old Clinical indication: Dyspnea TECHNIQUE: Imaging protocol: Radiologic exam of the chest. Views: 1 view. COMPARISON: CR XR CHEST PORTABLE 08/20/2024 3:44 PM FINDINGS: Lungs: No evidence of acute pulmonary disease or infiltrates Pleural spaces: No large effusion or pneumothorax. Heart/Mediastinum: No evidence of mediastinal widening or cardiac silhouette enlargement; the mediastinum and heart appear within normal limits for contour and size. Bones/joints: No evidence of acute osseous abnormalities within the visualized portions of the thoracic spine and ribs. Osseous structures appear appropriate for patient age. IMPRESSION: No dense parenchymal consolidation, pleural effusion, or pneumothorax.
--- NOTE | 2024-12-14 21:08 | HMH.EDGENADL ---
Discharge Plan Disposition Chief Complaint: Syncope Clinical Impressions Clinical Impression: Syncope, Heart failure with reduced ejection fraction, Transient hypotension, Alcohol intoxication Discharge ED Provider: Ashanti Torre General Adult HPI General Chief complaint: Syncope Stated complaint: Syncopal episode Time Seen by Provider: 12/14/24 20:53 History of Present Illness HPI narrative: Patient is a 49-year-old male with a known history of dilated cardiomyopathy secondary to alcohol abuse who had an ejection fraction of 10% but has been slowly improving most recently 29% on cardiac MRI. 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 Patient does continue to drink he had 6 beers today. States that he was sitting at the table when he had an unheralded syncopal episode did not have any preceding symptoms. His significant other who is with him states that he lost complete consciousness but was only out a few moments. He denies any chest pain shortness of breath states he is back to his baseline at the moment. Per EMS his initial blood pressure was 70 systolic. Related Data Home Medications ?Medication ?Instructions ?Recorded ?Confirmed acetaminophen 325 mg tablet 325 mg PO QID PRN Headache 06/15/20 12/14/24 (Tylenol) hydroxyzine pamoate 50 mg capsule 50 mg PO QID PRN Insomnia 09/13/24 12/14/24 Previous Rx's ?Medication ?Instructions ?Recorded bumetanide 1 mg tablet 1 mg PO DAILY #90 tabs 09/13/24 folic acid 1 mg tablet 1 mg PO DAILY #90 tabs 09/13/24 thiamine HCl (vitamin B1) 100 mg 100 mg PO DAILY #90 tabs 09/13/24 tablet trazodone 50 mg tablet 50 mg PO DAILY #90 tabs 09/13/24 metoprolol succinate 50 mg 50 mg PO DAILY #30 tabs 11/22/24 tablet,extended release 24 hr (Toprol XL) sacubitril 49 mg-valsartan 51 mg 1 tab PO BID #60 tabs 11/22/24 tablet (Entresto) Allergies Allergy/AdvReac Type Severity Reaction Status Date / Time cephalexin Allergy Intermediate Swelling Verified 11/22/24 09:45 of Lip/Tongue/Throat [facility] Disclaimer: The information contained in this section may have been updated after the patient was seen, as this information can be updated by other users. Medical History Hypertension Congestive heart failure Osteophyte of foot Leg weakness Surgical History Hx of cardiac cath Social History Smoking Status: Current every day smoker tobacco type: cigarettes packs per day: 1 second hand exposure: No alcohol intake: current alcohol intake frequency: 3 or more drinks per day substance use type: denies use current occupational status: employed Travel in the last 8 weeks: None housing: house Have you lived/traveled outside US in past 30 days?: No Contact w/someone who lives/traveled outside US past 30 days?: No Exposure to someone with infectious disease in past 14 days?: No Do you have a fever (greater than 100.4 F or 38 C)?: No Have you tested positive for COVID-19: No Exposed to someone with COVID-19 in past 14 days?: No Do you have a sore throat?: No Do you have a cough?: No Do you have any weakness?: Yes Do you have any diarrhea?: No Are you experiencing any unusual bleeding?: No Do you have any muscle aches/pain?: No Do you have any abdominal pain?: No Are you experiencing loss of taste or smell?: No Other Medical History Have you received the Flu Vaccine for this season: No Have you received the Pneumonia Vaccine: No ROS Obtained: Yes All systems reviewed & no additional complaints except as documented Physical Exam General General appearance: appears intoxicated (Smell strongly of alcohol) Respiratory Respiratory exam: Present normal lung sounds bilaterally and respiratory distress Cardiovascular Cardiovascular exam: Present regular rate and normal rhythm Abdominal Exam Abdominal exam: Present soft; Absent distention or tenderness Neurological Exam Neurological exam: Present alert and oriented X3 Medical Decision Making Medical Records Screening: Per USPSTF and CDC recommendations, given the prevalence of disease in our region, it is our hospital?s policy to screen for HIV and viral Hepatitis for all patients aged 18 and over and those with ongoing risk factors. Jw Inquiry Pt receiving controlled substance: No Vital Signs: 12/14/24 20:49 12/14/24 21:00 12/14/24 21:30 Temperature 98.8 F Temperature Source Oral Pulse Rate 76 Pulse Rate [Left] 81 Respiratory Rate 21 13 15 Blood Pressure 97/62 L 108/59 L Blood Pressure [Right Arm] 116/67 Blood Pressure Mean [Right Arm] 83 02 Sat by Pulse Oximetry 97 99 Oxygen Delivery Method Room Air 12/14/24 21:45 Temperature Temperature Source Pulse Rate 75 Pulse Rate [Left] Respiratory Rate 15 Blood Pressure 104/60 L Blood Pressure [Right Arm] Blood Pressure Mean [Right Arm] 02 Sat by Pulse Oximetry 98 Oxygen Delivery Method Lab Data Lab results reviewed: Yes I reviewed the patient's lab results. Lab Results 12/14/24 20:48: WBC 9.2, RBC 3.97 L, Hgb 12.6 L, Hct 36.2 L, MCV 91.2, MCH 31.7 H, MCHC 34.8, RDW 14.7, Plt Count 220, MPV 10.3, Neut % (Auto) 63.6, Lymph % (Auto) 23.1, [place] % (Auto) 8.6, Eos % (Auto) 3.6, Baso % (Auto) 0.4, Neut # (Auto) 5.9, Lymph # (Auto) 2.1, [place] # (Auto) 0.8, Eos # (Auto) 0.3, Baso # (Auto) 0.0, Sodium 133 L, Potassium 3.4 L, Chloride 97 L, Carbon Dioxide 24, Anion Gap 15.4 H, BUN 12, Creatinine 0.80, Estimated Creat Clear 109, Estimated GFR 103, Est GFR ( Amer) 125, Glucose 105 H, Calcium 8.5, Magnesium 1.9, Total Bilirubin 0.3, AST 25, ALT 15, Alkaline Phosphatase 52, Troponin I < 0.01, NT-Pro-B Natriuret Pep 39.1, Total Protein 6.5, Albumin 3.9, Globulin 2.6, Albumin/Globulin Ratio 1.5 12/14/24 20:48 12/14/24 20:48 Orders (Tests/Meds): ORDERS Category Date Time Status CXR --portable [XR chest portable] Stat Exams 12/14/24 20:57 Completed POCUS Point of Care (ER Only) Stat Exams 12/14/24 20:57 Completed BNP [NT Pro Brain Natriuretic Pep.] Stat Lab 02/04/25 20:48 Completed CBC w/Auto Diff [Complete Blood Count Auto Diff] Stat Lab 12/14/24 20:48 Completed CMP [Comprehensive Metabolic Panel] Stat Lab 12/14/24 20:48 Completed Ethanol [Ethyl Alcohol] Stat Lab 12/14/24 20:48 Received Magnesium Stat Lab 12/14/24 20:48 Completed Rapid PCR Covid and Flu A/B Stat Lab 12/14/24 22:18 Received Trop I [Troponin I] Stat Lab 12/14/24 20:48 Completed Troponin I Q3H Lab 12/14/24 23:57 Ordered Troponin I Q3H Lab 12/15/24 02:57 Ordered ECG Data Tracing #1: I reviewed this ECG and interpreted as documented below: Ventricular rate of 72 there is an interventricular conduction delay with indeterminate axis no acute ischemic changes noted no significant conduction abnormalities Medical Decision Narrative: 49-year-old with above history and physical. Bedside echo demonstrates ejection fraction similar to what has been demonstrated in the past near 30% no other definitive for obvious abnormality will get an EKG basic blood work including electrolytes and troponin etc. Of greatest concern would be that he had a malignant arrhythmia at the time that this happened today. Like will need to put him in the hospital for telemetry observation and cardiac consultation. Reassessment 1023 patient remained stable EKG shows no significant arrhythmia patient has been on monitor technician while in the ED and no significant arrhythmia noted as well. Patient is very high risk given his significant cardiomyopathy and this unheralded syncopal episode. Troponin is negative electrolytes not significantly abnormal. I discussed the case with hospital medicine who agreed to admit the patient for observation and likely cardiac consultation in the morning. Of note upon discussing with the patient and other person came in the room and stated that the patient had been complaining of some bodyaches and given the fact that the flu has been endemic recently we will send of COVID and flu test which is pending. Procedures Miscellaneous Procedure Procedure Performed: Limited cardiac ultrasound Indication: Dyspnea and syncope Identified structures: The heart was visualized in the parasternal long axis, parastenal short axis, apical four chamber and subxyphiod views. The IVC was visualized in the short axis and long axis at its entry into the right atrium. Findings: Moderate to severely depressed LVEF no pericardial effusion no severe heart right heart strain Impression: Moderate to severely depressed LVEF Images were saved to permanent archive The study was technically adequate CPT: 82660-90 This study was performed by me, and I personally interpreted all images/videos. Based on my clinical judgement, these images were adequate and did not necessitate further imaging. Critical Care Critical Care Time Critical Care Time: Yes Attestation: On 12/14/24, the high probability of a clinically significant, sudden or life threatening deterioration of the following system(s) required my full and direct attention, intervention and personal management. The time I documented below is in addition to time spent performing reported procedures but includes the following listed in this critical care notation. Total Time Total Critical Care Time: 35
[2024-12-14 21:10] LABS: Basophils % 0.4 % (0.1-2.0); Eosinophils # 0.3 K/mm3 (0.0-0.4); Eosinophils % 3.6 % (0.1-12.0); Hematocrit 36.2 % (42.0-52.0); Hemoglobin 12.6 g/dL (14.1-18.0); Lymphocytes # 2.1 K/mm3 (0.7-4.5); Lymphocytes % 23.1 % (10-50); Mean Corpuscular HGB Conc 34.8 g/dL (31.8-35.4); Mean Corpuscular Hemoglobin 31.7 pg (27.0-31.2); Mean Corpuscular Volume 91.2 fl (80-94); Mean Platelet Volume 10.3 fl (7.4-10.4); Monocytes # 0.8 K/mm3 (0.1-1.0); Monocytes % 8.6 % (1.7-9.3); Neutrophils # 5.9 K/mm3 (1.8-7.8); Neutrophils % 63.6 % (37.0-80.0); Platelet Count 220 K/mm3 (142-424); Red Blood Count 3.97 M/mm3 (4.60-6.20); Red Cell Distribution Width 14.7 % (11.5-17.5); White Blood Count 9.2 K/mm3 (4.8-10.8)
--- NOTE | 2024-12-14 21:15 | ECG_ITS ---
APPROVED REPORT Exam: Resting ECG HR:72 bpm ECG Measurements Heart Rate 72 AXES AZ 165 P 56 QRSd 144 QRS 8 QT 437 T 79 QTc 462 Conclusion SINUS RHYTHM INTRAVENTRICULAR CONDUCTION DELAY [130+ ms QRS DURATION] ABNORMAL ECG UNCONFIRMED REPORT Electronically signed by : ISIDRO FITZGERALD, 12/15/2024 06:54:07
[2024-12-14 21:29] LABS: Albumin Level 3.9 g/dl (3.5-5.0); Chloride 97 mmol/L (98-107); Sodium 133 mmol/L (136-145)
[2024-12-14 21:30] LABS: Potassium 3.4 mmoL/L (3.5-5.1)
[2024-12-14 21:32] LABS: Alanine Aminotransferase 15 U/L (12-78); Albumin/Globulin Ratio 1.5 (1.1-1.8); Alkaline Phosphatase 52 U/L (38-126); Anion Gap 15.4 mEq/L (5-15); Aspartate Amino Transferase 25 U/L (17-59); Bilirubin,Total 0.3 mg/dl (0.2-1.3); Blood Urea Nitrogen 12 mg/dl (9-20); Calcium 8.5 mg/dl (8.4-10.2); Carbon Dioxide 24 mmol/L (22.0-30.0); Creatinine Clearance Estimated 109 mL/min (50-200); Estimated Glomerular Filt Rate 103 ml/min (>60); GFR (African American) 125 ML/MIN (>60); Globulin 2.6 g/dL (1.3-3.2); Glucose 105 mg/dl (74-100); Magnesium 1.9 mg/dl (1.6-2.3); Total Protein,Serum 6.5 g/dl (6.3-8.2)
[2024-12-14 21:42] LABS: NT Pro Brain Natriuretic Pep. 39.1 pg/mL (0-125)
[2024-12-14 22:17] LABS: Troponin I < 0.01 ng/ml (0.00-0.034)
[2024-12-14 22:18] LABS: Coronavirus 19, PCR Not Detected (NotDetected); Influenza A, PCR Not Detected (NotDetected); Influenza B, PCR Not Detected (NotDetected)
--- NOTE | 2024-12-14 22:19 | PC.NURSE ---
Contacted lab regarding some labs that didnt result, spoke with Curtis in lab and she stated they should be resulting and it would be 10-15mins on the ethanol.
[2024-12-14 22:26] LABS: Ethyl Alcohol 59 mg/dl (0-10)
--- NOTE | 2024-12-14 22:26 | PC.NURSE ---
report called to CODY Odom
--- NOTE | 2024-12-14 22:36 | PC.NURSE ---
Patient arrived to floor via wheelchair from ED at 22:35.
[2024-12-14 23:28] LABS: Magnesium 1.8 mg/dl (1.6-2.3); Phosphorous 3.9 mg/dl (2.5-4.5)
[2024-12-15] VITALS: BP 121/57; PULSE 65; PULSE 70; RESP 16; TEMP 36.4; O2SAT 96
[2024-12-15 00:17] LABS: Troponin I < 0.01 ng/ml (0.00-0.034)
[2024-12-15] MEDS: POTASSIUM CHLORIDE 20MEQ TAB 40 MEQ PO ×2 (02:17→05:34)
--- NOTE | 2024-12-15 03:13 | P.HP_ITS ---
History of Present Illness *Admission Date: 12/14/24 *Reason for visit:: Syncope *History of present illness: The patient is a 49-year-old male with a history of dilated cardiomyopathy secondary to chronic alcohol use, previously documented with an ejection fraction of 10%, now improved to 29% on recent cardiac MRI. 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 Despite recommendations, he continues to consume alcohol, admitting to drinking six beers today. Earlier today, while sitting at a table, he experienced an unheralded syncopal episode without preceding symptoms. His significant other, who witnessed the event, stated he lost consciousness completely but only for a few moments. There was no seizure-like activity, postictal confusion, or focal neurological deficits. Upon EMS arrival, his blood pressure was 70 mmHg systolic. He denies chest pain, shortness of breath, or palpitations and reports feeling back to baseline. In the ED, he remained hemodynamically stable with no recurrent syncope. A bedside echocardiogram showed an EF near 30%, similar to prior studies. EKG revealed an interventricular conduction delay with no acute ischemic changes or significant arrhythmias. Labs were notable for mild hyponatremia (133) and hypokalemia (3.4), with a negative troponin and normal NT-proBNP (39.1). Given his history of significant cardiomyopathy and this unexplained syncopal event, concern remains for an underlying arrhythmic etiology. He is being admitted for telemetry monitoring, serial cardiac evaluations, and cardiology consultation. Given his ongoing alcohol use, he will also be monitored for withdrawal. Additionally, given recent complaints of body aches and the current prevalence of influenza, COVID and flu testing were sent and are pending. [facility] Disclaimer: The information contained in this section may have been updated after the patient was seen, as this information can be updated by other users. Medical History (Updated 12/15/24 @ 10:42 by Amanda Almendarez APRN) Heart failure with improved ejection fraction (HFimpEF) Cardiomyopathy Syncope Heart failure with reduced ejection fraction Alcohol intoxication Transient hypotension Hypertension Congestive heart failure Osteophyte of foot Leg weakness Surgical History Hx of cardiac cath Social History Smoking Status: Current every day smoker tobacco type: cigarettes packs per day: 1 second hand exposure: No alcohol intake: current alcohol intake frequency: 3 or more drinks per day substance use type: denies use current occupational status: employed Travel in the last 8 weeks: None housing: house Other Medical History Have you received the Flu Vaccine for this season: No Have you received the Pneumonia Vaccine: No Review of Systems Review of Systems Review of systems (narrative): 13 point review of systems negative except as listed in HPI Meds Home Medications and Allergies Home Medications ?Medication ?Instructions ?Recorded ?Confirmed ?Type bumetanide 1 mg tablet 1 mg PO DAILY #90 tabs 09/13/24 12/14/24 Rx folic acid 1 mg tablet 1 mg PO DAILY #90 tabs 09/13/24 12/14/24 Rx hydroxyzine pamoate 50 mg capsule 50 mg PO QID PRN Anxiety 09/13/24 12/14/24 History thiamine HCl (vitamin B1) 100 mg 100 mg PO DAILY #90 tabs 09/13/24 12/14/24 Rx tablet metoprolol succinate 50 mg 50 mg PO DAILY #30 tabs 11/22/24 12/14/24 Rx tablet,extended release 24 hr (Toprol XL) dapagliflozin propanediol 10 mg 10 mg PO DAILY 12/14/24 12/14/24 History tablet (Farxiga) naltrexone 50 mg tablet 50 mg PO DAILY #30 tabs 12/15/24 Rx sacubitril 24 mg-valsartan 26 mg 1 tab PO BID 30 days #60 tabs 12/15/24 Rx tablet (Entresto) trazodone 50 mg tablet 50 mg PO HS 12/15/24 12/15/24 History New Prescriptions to Start Prescriptions: Arnulfo Ariza sacubitril-valsartan [Entresto] Arnulfo Rees Allergies Allergy/AdvReac Type Severity Reaction Status Date / Time cephalexin Allergy Intermediate Swelling Verified 11/22/24 09:45 of Lip/Tongue/Throat Exam Data for Last 24 hours Vital signs and Labs for Last 24 Hours: Temp Pulse Resp BP Pulse Ox O2 Del Method 97.5 F L 70 16 121/57 L 96 Room Air 12/15/24 00:00 12/15/24 00:00 12/15/24 00:00 12/15/24 00:00 12/15/24 00:00 12/15/24 01:00 Laboratory Results - last 24 hr 12/14/24 20:48: WBC 9.2, RBC 3.97 L, Hgb 12.6 L, Hct 36.2 L, MCV 91.2, MCH 31.7 H, MCHC 34.8, RDW 14.7, Plt Count 220, MPV 10.3, Neut % (Auto) 63.6, Lymph % (Auto) 23.1, [place] % (Auto) 8.6, Eos % (Auto) 3.6, Baso % (Auto) 0.4, Neut # (Auto) 5.9, Lymph # (Auto) 2.1, [place] # (Auto) 0.8, Eos # (Auto) 0.3, Baso # (Auto) 0.0, Sodium 133 L, Potassium 3.4 L, Chloride 97 L, Carbon Dioxide 24, Anion Gap 15.4 H, BUN 12, Creatinine 0.80, Estimated Creat Clear 109, Estimated GFR 103, Est GFR ( Amer) 125, Glucose 105 H, Calcium 8.5, Magnesium 1.9, Total Bilirubin 0.3, AST 25, ALT 15, Alkaline Phosphatase 52, Troponin I < 0.01, NT-Pro-B Natriuret Pep 39.1, Total Protein 6.5, Albumin 3.9, Globulin 2.6, Albumin/Globulin Ratio 1.5, Plasma/Serum Alcohol 59 H 12/14/24 22:18: SARS-CoV-2 (PCR) Not detected, Influenza A Untype (PCR) Not detected, Influenza Type B (PCR) Not detected 12/14/24 23:00: Phosphorus 3.9, Magnesium 1.8 12/14/24 23:48: Troponin I < 0.01 I & O for Last 24 hours: Intake & Output 12/12/24 12/13/24 12/14/24 12/15/24 23:59 23:59 23:59 23:59 Intake Total 240 / 240 Balance 240 / 240 Weight 68.039 kg Constitutional Constitutional: no acute distress *Routine HEENT Exam Head: Present normocephalic Eye: Present EOMI and PERRL ENT: Present mucous membranes moist *Routine Neck Exam Neck: Present supple; Absent lymphadenopathy *Routine Respiratory Exam Respiratory: Present CTA bilaterally *Routine Cardiovascular Exam Cardiovascular: Present RRR *Routine Abdominal Exam Abdominal: Present soft and normoactive bowel sounds; Absent tenderness *Routine Rectal Exam Rectal:: deferred *Routine Genitalia Exam Genitalia:: deferred *Routine Extremities Exam Extremities: Absent cyanosis, clubbing or edema *Routine Skin Exam Skin: Present warm; Absent rash *Routine Neurological Exam Neurological: Present alert and oriented X3 Assessment and Plan *Assessment and plan (1) Alcohol intoxication: Status: Acute Category: Medical Code(s): F10.929 - Alcohol use, unspecified with intoxication, unspecified (2) Transient hypotension: Status: Acute Category: Medical Code(s): I95.9 - Hypotension, unspecified (3) Heart failure with reduced ejection fraction: Status: Acute Category: Medical Code(s): I50.20 - Unspecified systolic (congestive) heart failure (4) Syncope: Status: Acute Category: Medical Code(s): R55 - Syncope and collapse (5) Cardiomyopathy: Status: Acute Qualifiers: Cardiomyopathy type: alcoholic Qualified Code(s): I42.6 - Alcoholic cardiomyopathy Category: Medical Code(s): I42.9 - Cardiomyopathy, unspecified Plan Medical Decision Making: The patient presents with a syncopal episode in the setting of significant cardiomyopathy and ongoing alcohol use. His low EF, lack of defibrillator placement, and ongoing alcohol consumption place him at high risk for malignant arrhythmias. While no acute ischemic changes, significant arrhythmias, or recurrent syncope have been noted in the ED, his presentation warrants inpatient telemetry monitoring and cardiology evaluation. Given his electrolyte imbalances (hyponatremia, hypokalemia), history of alcohol abuse, and cardiomyopathy, further workup is necessary to rule out arrhythmic syncope versus vasovagal or volume-related hypotension. Hospital medicine has agreed to admit for telemetry and cardiology consultation. Additionally, given recent complaints of body aches and flu activity, COVID and influenza testing were sent. 1. Unheralded Syncope * Likely arrhythmic etiology given history of severe cardiomyopathy (EF 29%) * Admit to telemetry for continuous cardiac monitoring * Cardiology consultation for further evaluation, including ICD placement consideration * Serial troponins to rule out myocardial injury * Repeat EKG if recurrent symptoms or changes in clinical status 2. Dilated Cardiomyopathy (Alcohol-Induced) with Reduced Ejection Fraction * Continue guideline-directed medical therapy for heart failure * Ensure patient is on optimal heart failure medications, including beta- blockers and ACEI/ARB/ARNI if tolerated * Monitor for volume overload; diuretics PRN * Assess candidacy for ICD placement given LVEF <30% and recent syncopal event 3. Alcohol Use Disorder * Continued alcohol use despite known impact on cardiomyopathy * Monitor for withdrawal symptoms and initiate CIWA protocol if necessary * Social work and addiction counseling consultation * Consider pharmacologic support for alcohol cessation (naltrexone, acamprosate) if appropriate 4. Electrolyte Abnormalities (Hyponatremia, Hypokalemia) * Sodium 133: Monitor for worsening hyponatremia, assess volume status, consider fluid restriction if necessary * Potassium 3.4: Replete to goal >4.0 with oral potassium supplementation * Monitor magnesium levels and replete if needed 5. Rule Out Viral Infection (Pending Flu/COVID Testing) * Recent body aches with ongoing flu activity in the community * Monitor for fever, worsening symptoms, or respiratory involvement * Supportive care if positive; initiate oseltamivir if influenza confirmed 6. Hypotensive Episode (BP 70 Systolic on EMS Arrival) * Possible contributing factors include arrhythmia, alcohol-related volume depletion, or vasovagal syncope * Monitor blood pressure closely while on telemetry * IV fluids as needed for symptomatic hypotension * No evidence of active GI bleeding or septic process at this time Disposition: * Admit to telemetry for cardiac monitoring * Cardiology consult for ICD consideration * Serial troponins and continuous EKG monitoring * Alcohol cessation counseling and evaluation for withdrawal * Monitor pending viral panel and electrolytes * Subcu Lovenox for DVT prophylaxis * Full code * Cardiac diet Rounded on patient after nurse practitioner. Personally examined and interviewed patient. Agree with exam findings and care plan as documented.
[2024-12-15 03:37] LABS: Troponin I < 0.01 ng/ml (0.00-0.034)
--- NOTE | 2024-12-15 03:37 | INFXCTL.NOTE ---
Pt. was admitted overnight with syncopal episode. heart failure, and hypotension. Pt. had a syncopal episode at home was initally confusedbut back to baseline when he arrived to the ED. Upon admission to med/surg. Pt. is alert and orientated x 4. Pt. on room air. Denies any chest pain, SOA, dizziness, nausea. He states that he feels. fine. Did say he has had a couple syncopal episodes over the past couple of months. Pt. also had 6 beers tonight before the syncopal episode. Pt. also drinks daily for past week. CIWA score zero. Pt's potassium slighly low PO potassium given. Pt's significant other is at bedside overnight. VSS. Personal items and call bunch in reach.
[2024-12-15 04:00] VITALS: BP 110/55; PULSE 73; PULSE 75; RESP 16; TEMP 36.8; O2SAT 97; BMI 22.1
[2024-12-15 06:53] LABS: Basophils # 0.1 K/mm3 (0-0.2); Basophils % 0.6 % (0.1-2.0); Eosinophils # 0.4 K/mm3 (0.0-0.4); Eosinophils % 4.2 % (0.1-12.0); Hematocrit 35.7 % (42.0-52.0); Hemoglobin 12.2 g/dL (14.1-18.0); Lymphocytes % 23.2 % (10-50); Mean Corpuscular HGB Conc 34.2 g/dL (31.8-35.4); Mean Corpuscular Hemoglobin 31.2 pg (27.0-31.2); Mean Corpuscular Volume 91.3 fl (80-94); Mean Platelet Volume 10.6 fl (7.4-10.4); Monocytes # 0.9 K/mm3 (0.1-1.0); Monocytes % 10.2 % (1.7-9.3); Neutrophils # 5.2 K/mm3 (1.8-7.8); Neutrophils % 61.4 % (37.0-80.0); Platelet Count 234 K/mm3 (142-424); Red Blood Count 3.91 M/mm3 (4.60-6.20); Red Cell Distribution Width 14.7 % (11.5-17.5); White Blood Count 8.5 K/mm3 (4.8-10.8)
[2024-12-15 06:55] LABS: Chloride 104 mmol/L (98-107); Potassium 4.2 mmoL/L (3.5-5.1); Sodium 134 mmol/L (136-145)
[2024-12-15 06:58] LABS: Anion Gap 9.2 mEq/L (5-15); Blood Urea Nitrogen 9 mg/dl (9-20); Carbon Dioxide 25 mmol/L (22.0-30.0); Cholesterol 168 mg/dl (140-200); Creatinine Clearance Estimated 145 mL/min (50-200); Estimated Glomerular Filt Rate 144 ml/min (>60); GFR (African American) 174 ML/MIN (>60); Glucose 99 mg/dl (74-100); Triglycerides 166 mg/dl (30-150); VLDL Cholesterol 33 mg/dL (0-40)
[2024-12-15 06:59] LABS: Chol/HDL Ratio 4.4 (1-3.5); HDL Cholesterol 38 mg/dl (40-60); INR 0.89 (0.9-1.1); Magnesium 2.1 mg/dl (1.6-2.3); Prothrombin Time 9.9 seconds (9.2-12.1)
[2024-12-15 07:10] LABS: Direct LDL Cholesterol 94.05 mg/dL (100-129)
[2024-12-15 07:37] VITALS: BP 110/57; PULSE 80; RESP 18; TEMP 36.6; O2SAT 96
--- NOTE | 2024-12-15 07:53 | HMH.PHAINT1 ---
Pharmacy Intervention Comments: Home medication list verified using LIST FROM OUTPATIENT PHARMACY, PHARMACY BOTTLES AND PT INTERVIEW
[2024-12-15 08:00] VITALS: PULSE 85
[2024-12-15] MEDS: THIAMINE 100MG TABLET 100 MG PO (08:55)
[2024-12-15] MEDS: FOLIC ACID 1MG TABLET 1 MG PO (08:55)
[2024-12-15] MEDS: ENOXAPARIN 40MG/0.4ML SYRINGE 40 MG SUBCUT (08:56)
[2024-12-15] MEDS: SACUBITRIL/VALSARTAN 24-26MG TABLET 2 EACH PO (08:56)
--- NOTE | 2024-12-15 09:31 | CA_ITS ---
APPROVED REPORT EXAM: Limited 2D Echocardiogram [place]: Barbie Zayas RDCS Ht: 5 ft 9 in Wt: 150lbs BSA: 1.83 BP: 121/51 mmHg Indications: EF CHECK,DCM,10/14/24 EF 20% M-Mode Dimensions RVDd 2.25 cm (0.9-2.6) LA Diam 3.01 cm (1.9-4.0) LVDd 5.50 cm (3.5-5.7) LVDs 4.57 cm (3.5-5.7) IVSd 0.71 cm (0.6-1.1) PWd 0.82 cm (0.6-1.1) EF (Teich) 34.90% FS 16.90% EDV (Teich) 147.40 mL ESV (Teich) 95.90 mL Other Information Study Quality: Fair Conclusion This is a limited TTE to evaluate for LV systolic function. Limited windows are obtained. The left ventricle is normal in size. There is normal LV wall thickness. There is low-normal global LV systolic function. No regional wall motion abnormalities are noted. LVEF is 50%. Compared to prior study from 10/14/2024 and the prior CMR, the LVEF is now improved and is now in the low-normal range. Electronically signed by : Mary Dominguez MD 12/15/2024 12:11:09
[2024-12-15 09:38] LABS: Benzodiazepines Screen,Urine Negative ng/ml (<200)
[2024-12-15 09:39] LABS: Amphetamine/Metha Screen,Urine Positive ng/ml (<1000)
[2024-12-15 09:40] LABS: Barbiturates Screen,Urine Negative ng/ml (<200)
[2024-12-15 09:42] LABS: Cannabinoid Screen,Urine Positive ng/ml (<50); Cocaine Screen,Urine Negative ng/ml (<300)
[2024-12-15 09:43] LABS: Methadone Screen,Urine Negative ng/ml (<300); Opiate Screen,Urine Negative ng/ml (<300)
[2024-12-15 09:44] LABS: Phencyclidine Screen,Urine Negative ng/ml (<25)
--- NOTE | 2024-12-15 10:11 | EXP.CARD.CON ---
History of Present Illness History of Present Illness Consult date: 12/15/24 Requesting physician: Arnulfo Rees Consult reason: hypotension Chief complaint: syncope History of present illness: This is a 49-year-old gentleman who presented to the emergency department with a syncopal episode. The patient has a history of chronic dilated cardiomyopathy and chronic alcohol use. The patient states that he had just eaten dinner last night and went to stand up because he was starting to feel bad he got significantly dizzy and the next thing he knew he woke up on the floor. The patient reports that he did hit his head on the refrigerator. He states that he only lost consciousness for a few seconds. His syncopal episode was witnessed by his girlfriend. He denies any chest pain or pressure. He denies any shortness of breath or edema. He denies any fever, chills, nausea, vomiting, diarrhea, PND orthopnea. He denies any palpitations or racing of the heart. The patient had a blood pressure of 70 systolic when EMS arrived at his house. The patient was brought here to the emergency department for further evaluation. Due to his history of dilated cardiomyopathy and HFrEF he was subsequently admitted to the hospital. Of note, the patient did have an increase to his Entresto last week which is most likely the cause of his hypotension. [facility] Disclaimer: The information contained in this section may have been updated after the patient was seen, as this information can be updated by other users. Medical History (Updated 12/15/24 @ 10:42 by Amanda Almendarez APRN) Heart failure with improved ejection fraction (HFimpEF) Cardiomyopathy Syncope Heart failure with reduced ejection fraction Alcohol intoxication Transient hypotension Hypertension Congestive heart failure Osteophyte of foot Leg weakness Surgical History Hx of cardiac cath Social History Smoking Status: Current every day smoker tobacco type: cigarettes packs per day: 1 second hand exposure: No alcohol intake: current alcohol intake frequency: 3 or more drinks per day substance use type: denies use current occupational status: employed Travel in the last 8 weeks: None housing: house Have you lived/traveled outside [place] in past 30 days?: No Contact w/someone who lives/traveled outside [place] past 30 days?: No Exposure to someone with infectious disease in past 14 days?: No Do you have a fever (greater than 100.4 F or 38 C)?: No Have you tested positive for COVID-19: No Exposed to someone with COVID-19 in past 14 days?: No Do you have a sore throat?: No Do you have a cough?: No Do you have any weakness?: Yes Do you have any diarrhea?: No Are you experiencing any unusual bleeding?: No Do you have any muscle aches/pain?: No Do you have any abdominal pain?: No Are you experiencing loss of taste or smell?: No Review of Systems Review of Systems Review of systems:: pertinent systems reviewed and negative unless documented below Constitutional Constitutional: Reports system reviewed and no additional complaints, except as documented Eyes Eyes: Reports system reviewed and no additional complaints, except as documented ENT Ears, Nose, Mouth, and Throat: Reports system reviewed and no additional complaints, except as documented and Reports dizziness *Cardiovascular Cardiovascular: Reports system reviewed and no additional complaints, except as documented and Reports syncope *Respiratory Respiratory: Reports system reviewed and no additional complaints, except as documented *Gastrointestinal Gastrointestinal: Reports system reviewed and no additional complaints, except as documented *Genitourinary Genitourinary: Reports system reviewed and no additional complaints, except as documented *Musculoskeletal Musculoskeletal: Reports system reviewed and no additional complaints, except as documented Integumentary/Breasts Skin/Breast: Reports system reviewed and no additional complaints, except as documented *Neurologic Neurologic: Reports system reviewed and no additional complaints, except as documented, Reports dizziness and Reports syncope Psychiatric Psychiatric: Reports system reviewed and no additional complaints, except as documented Endocrine Endocrine: Reports system reviewed and no additional complaints, except as documented Hematologic/Lymphatic Hematologic/Lymphatic: Reports system reviewed and no additional complaints, except as documented Allergic/Immunologic Allergic/Immunologic: Reports system reviewed and no additional complaints, except as documented Exam Data for Last 24 hours Vital signs and Labs for Last 24 Hours: Temp Pulse Resp BP Pulse Ox O2 Del Method 97.9 F 80 18 110/57 L 96 Room Air 12/15/24 07:37 12/15/24 07:37 12/15/24 07:37 12/15/24 07:37 12/15/24 07:37 12/15/24 09:00 Laboratory Results - last 24 hr 12/14/24 09:00: Urine Opiates Screen Negative, Urine Methadone Screen Negative, Ur Barbituates Screen Negative, Ur Phencyclidine Scrn Negative, Ur Amphetamines Screen Positive H, U Benzodiazepines Scrn Negative, Urine Cocaine Screen Negative, U Marijuana (THC) Screen Positive H 12/14/24 20:48: WBC 9.2, RBC 3.97 L, Hgb 12.6 L, Hct 36.2 L, MCV 91.2, MCH 31.7 H, MCHC 34.8, RDW 14.7, Plt Count 220, MPV 10.3, Neut % (Auto) 63.6, Lymph % (Auto) 23.1, [place] % (Auto) 8.6, Eos % (Auto) 3.6, Baso % (Auto) 0.4, Neut # (Auto) 5.9, Lymph # (Auto) 2.1, [place] # (Auto) 0.8, Eos # (Auto) 0.3, Baso # (Auto) 0.0, Sodium 133 L, Potassium 3.4 L, Chloride 97 L, Carbon Dioxide 24, Anion Gap 15.4 H, BUN 12, Creatinine 0.80, Estimated Creat Clear 109, Estimated GFR 103, Est GFR ( Amer) 125, Glucose 105 H, Calcium 8.5, Magnesium 1.9, Total Bilirubin 0.3, AST 25, ALT 15, Alkaline Phosphatase 52, Troponin I < 0.01, NT-Pro-B Natriuret Pep 39.1, Total Protein 6.5, Albumin 3.9, Globulin 2.6, Albumin/Globulin Ratio 1.5, Plasma/Serum Alcohol 59 H 12/14/24 22:18: SARS-CoV-2 (PCR) Not detected, Influenza A Untype (PCR) Not detected, Influenza Type B (PCR) Not detected 12/14/24 23:00: Phosphorus 3.9, Magnesium 1.8 12/14/24 23:48: Troponin I < 0.01 12/15/24 02:53: Troponin I < 0.01 12/15/24 05:08: WBC 8.5, RBC 3.91 L, Hgb 12.2 L, Hct 35.7 L, MCV 91.3, MCH 31.2, MCHC 34.2, RDW 14.7, Plt Count 234, MPV 10.6 H, Neut % (Auto) 61.4, Lymph % (Auto) 23.2, [place] % (Auto) 10.2 H, Eos % (Auto) 4.2, Baso % (Auto) 0.6, Neut # (Auto) 5.2, Lymph # (Auto) 2.0, [place] # (Auto) 0.9, Eos # (Auto) 0.4, Baso # (Auto) 0.1, PT 9.9, INR 0.89 L, APTT 26.0, Sodium 134 L, Potassium 4.2 D, Chloride 104, Carbon Dioxide 25, Anion Gap 9.2, BUN 9, Creatinine 0.60 L D, Estimated Creat Clear 145, Estimated GFR 144, Est GFR ( Amer) 174 D, Glucose 99, Calcium 9.0, Phosphorus 4.0, Magnesium 2.1 D, Triglycerides 166 H, Cholesterol 168, LDL Cholesterol Direct 94.05 L, VLDL Cholesterol 33, HDL Cholesterol 38 L, Cholesterol/HDL Ratio 4.4 H I & O for Last 24 hours: Intake & Output 12/12/24 12/13/24 12/14/24 12/15/24 23:59 23:59 23:59 23:59 Intake Total 1200 / 1200 Output Total 450 / 450 Balance 750 / 750 Weight 150 lb 150 lb Constitutional Constitutional: no acute distress and average body habitus *Routine HEENT Exam Head: Present normocephalic and atraumatic ENT: Present mucous membranes moist *Routine Neck Exam Neck: Present supple, full ROM and normal carotid upstroke; Absent JVD, carotid bruit or lymphadenopathy *Routine Respiratory Exam Respiratory: Present CTA bilaterally, normal respiratory effort, able to speak in complete sentences and symmetric chest movement *Routine Cardiovascular Exam Cardiovascular: Present RRR, Normal S1 and Normal S2; Absent murmur or gallop *Routine Abdominal Exam Abdominal: Present soft and normoactive bowel sounds; Absent tenderness, distended or organomegaly *Routine Extremities Exam Extremities: Present full ROM, pulses intact and normal capillary refill; Absent cyanosis, clubbing or edema *Routine Skin Exam Skin: Present intact and warm; Absent erythema *Routine Neurological Exam Neurological: Present alert, oriented X3 and CN II-XII intact; Absent sensory deficit or motor deficit Routine Psychiatric Exam Psychiatric: Present normal affect Meds Home Medications and Allergies Home Medications ?Medication ?Instructions ?Recorded ?Confirmed ?Type bumetanide 1 mg tablet 1 mg PO DAILY #90 tabs 09/13/24 12/14/24 Rx folic acid 1 mg tablet 1 mg PO DAILY #90 tabs 09/13/24 12/14/24 Rx hydroxyzine pamoate 50 mg capsule 50 mg PO QID PRN Anxiety 09/13/24 12/14/24 History thiamine HCl (vitamin B1) 100 mg 100 mg PO DAILY #90 tabs 09/13/24 12/14/24 Rx tablet metoprolol succinate 50 mg 50 mg PO DAILY #30 tabs 11/22/24 12/14/24 Rx tablet,extended release 24 hr (Toprol XL) sacubitril 49 mg-valsartan 51 mg 1 tab PO BID #60 tabs 11/22/24 12/14/24 Rx tablet (Entresto) dapagliflozin propanediol 10 mg 10 mg PO DAILY 12/14/24 12/14/24 History tablet (Farxiga) trazodone 50 mg tablet 50 mg PO HS 12/15/24 12/15/24 History New Prescriptions to Start Prescriptions: Allergies Allergy/AdvReac Type Severity Reaction Status Date / Time cephalexin Allergy Intermediate Swelling Verified 11/22/24 09:45 of Lip/Tongue/Throat Assessment and Plan *Assessment and plan (1) Heart failure with improved ejection fraction (HFimpEF): Status: Acute Category: Medical Code(s): I50.32 - Chronic diastolic (congestive) heart failure (2) Transient hypotension: Status: Acute Category: Medical Code(s): I95.9 - Hypotension, unspecified (3) Syncope: Status: Acute Qualifiers: Syncope type: unspecified Qualified Code(s): R55 - Syncope and collapse Category: Medical Code(s): R55 - Syncope and collapse (4) Alcohol intoxication: Status: Acute Qualifiers: Complication of substance-induced condition: uncomplicated Qualified Code(s): F10.920 - Alcohol use, unspecified with intoxication, uncomplicated Category: Medical Code(s): F10.929 - Alcohol use, unspecified with intoxication, unspecified (5) Dizziness: Status: Acute Category: Medical Code(s): R42 - Dizziness and giddiness (6) Acute hyponatremia: Status: Acute Category: Medical Code(s): E87.1 - Hypo-osmolality and hyponatremia Plan Plan: 1. The patient was admitted to the hospital following a syncopal episode. Upon arrival of EMS the patient was found to have a systolic blood pressure in the 70s. He recently had his Entresto increased last week which is most likely the cause of his hypotension which in turn caused him to have the syncopal episode. Will decrease his Entresto to 24/26 mg p.o. twice daily for better blood pressure control. 2. Will obtain a limited echocardiogram to evaluate his LV function. The patient does have known dilated cardiomyopathy, alcohol induced, and HFrEF. He does not appear to currently be in an acute exacerbation. But we would like to recheck his EF in the setting of a syncopal episode. 3. He denies any chest pain or pressure. His troponin was negative. No plans for left cardiac catheterization at this time. 4. His LDL goal is less than 100. His LDL is 94. 5. Continue Farxiga, Bumex and metoprolol for dilated cardiomyopathy and HFrEF. 6. Alcohol cessation is highly advised and counseled. The patient did have a positive blood alcohol level. 7. Further recommendations will be made pending the patient's response to treatment and the results of his echocardiogram today. Addendum: Preliminary echocardiogram shows an ejection fraction of 45 to 50%. He has had interval improvement in his ejection fraction. The patient will need to be discharged home with a 30-day event monitor. Will decrease his Entresto as mentioned above. The patient needs to abstain from alcohol use.
--- NOTE | 2024-12-15 11:18 | PC.NURSE ---
Patient refusing to call for assistance when ambulating. States SO getting him up. Education provided regarding syncope and risk of fall.
[2024-12-15 11:23] VITALS: BP 127/72; PULSE 73; RESP 18; O2SAT 98
[2024-12-15 12:00] VITALS: PULSE 70
--- NOTE | 2024-12-15 13:44 | EXP.DC.SUM ---
General Admission date:: 12/14/24 Discharge date: 12/15/24 HPI HPI HPI: The patient is a 49-year-old male with a history of dilated cardiomyopathy secondary to chronic alcohol use, previously documented with an ejection fraction of 10%, now improved to 29% on recent cardiac MRI. He has not had a defibrillator placed, as his paper finisher has been monitoring for further improvement. Despite recommendations, he continues to consume alcohol, admitting to drinking six beers today. Earlier today, while sitting at a table, he experienced an unheralded syncopal episode without preceding symptoms. His significant other, who witnessed the event, stated he lost consciousness completely but only for a few moments. There was no seizure-like activity, postictal confusion, or focal neurological deficits. Upon EMS arrival, his blood pressure was 70 mmHg systolic. He denies chest pain, shortness of breath, or palpitations and reports feeling back to baseline. In the ED, he remained hemodynamically stable with no recurrent syncope. A bedside echocardiogram showed an EF near 30%, similar to prior studies. EKG revealed an interventricular conduction delay with no acute ischemic changes or significant arrhythmias. Labs were notable for mild hyponatremia (133) and hypokalemia (3.4), with a negative troponin and normal NT-proBNP (39.1). Given his history of significant cardiomyopathy and this unexplained syncopal event, concern remains for an underlying arrhythmic etiology. He is being admitted for telemetry monitoring, serial cardiac evaluations, and cardiology consultation. Given his ongoing alcohol use, he will also be monitored for withdrawal. Additionally, given recent complaints of body aches and the current prevalence of influenza, COVID and flu testing were sent and are pending. Hospital Course Hospital Course Hospital Course: The patient presents with a syncopal episode in the setting of significant cardiomyopathy and ongoing alcohol use. His low EF, lack of defibrillator placement, and ongoing alcohol consumption place him at high risk for malignant arrhythmias. While no acute ischemic changes, significant arrhythmias, or recurrent syncope have been noted in the ED, his presentation warrants inpatient telemetry monitoring and cardiology evaluation. Given his electrolyte imbalances (hyponatremia, hypokalemia), history of alcohol abuse, and cardiomyopathy, further workup is necessary to rule out arrhythmic syncope versus vasovagal or volume-related hypotension. Hospital medicine has agreed to admit for telemetry and cardiology consultation. Cardiology evaluated in the morning, echo was obtained. EF is improved. Recommend discharge home with monitoring on event monitor. Further management as an outpatient. Stable to discharge. Problems addressed as follows: Unheralded Syncope Dilated cardiomyopathy Heart failure with improved ejection fraction -Patient admitted for syncopal event. Upon arrival by EMS patient was found to have systolic blood pressure in the 70s. Recently had his Entresto increased. Did well overnight with no further events and improvement in his blood pressure. Cardiology evaluated, recommended echocardiogram. Will also decrease his Entresto to 24/26 mg p.o. twice daily for better blood pressure control. Echo showed improvement in ejection fraction to 45 to 50%. Given his clinical stability and no further events, recommend continuing Farxiga, Bumex and metoprolol for dilated cardiomyopathy and HFrEF. Troponin is negative during admission. Cardiology recommends event monitor at discharge for 30 days. Follow-up with cardiology as an outpatient in the next 1 to 2 weeks. Strongly recommend alcohol abstinence and avoidance of illicit substances such as amphetamines or THC which are found in his drug screens. Alcohol use disorder Illicit drug use -Alcohol level 50 on admission. UDS positive for amphetamines and THC. performance specialist consulted to assist with care. Patient open to initiating naltrexone to decrease desire to drink. Discharged on 1 month course of naltrexone. Follow-up with PCP as an outpatient. Electrolytes improved by morning. Potassium 4.2, magnesium 2.1. Phosphorus 4.0. No signs of infection with normal white count and normal hemoglobin. Kidney function normal with BUN 9, creatinine 0.6. Stable to discharge home with close follow-up with cardiology. Total time spent on discharge 32 minutes in counseling, documentation, chart review, and direct care with patient. Exam Data for Last 24 hours Vital signs and Labs for Last 24 Hours: Temp Pulse Resp BP Pulse Ox O2 Del Method 97.9 F 73 18 127/72 98 Room Air 12/15/24 07:37 12/15/24 11:23 12/15/24 11:23 12/15/24 11:23 12/15/24 11:23 12/15/24 13:00 Laboratory Results - last 24 hr 12/14/24 09:00: Urine Opiates Screen Negative, Urine Methadone Screen Negative, Ur Barbituates Screen Negative, Ur Phencyclidine Scrn Negative, Ur Amphetamines Screen Positive H, U Benzodiazepines Scrn Negative, Urine Cocaine Screen Negative, U Marijuana (THC) Screen Positive H 12/14/24 20:48: WBC 9.2, RBC 3.97 L, Hgb 12.6 L, Hct 36.2 L, MCV 91.2, MCH 31.7 H, MCHC 34.8, RDW 14.7, Plt Count 220, MPV 10.3, Neut % (Auto) 63.6, Lymph % (Auto) 23.1, Snyder % (Auto) 8.6, Eos % (Auto) 3.6, Baso % (Auto) 0.4, Neut # (Auto) 5.9, Lymph # (Auto) 2.1, Snyder # (Auto) 0.8, Eos # (Auto) 0.3, Baso # (Auto) 0.0, Sodium 133 L, Potassium 3.4 L, Chloride 97 L, Carbon Dioxide 24, Anion Gap 15.4 H, BUN 12, Creatinine 0.80, Estimated Creat Clear 109, Estimated GFR 103, Est GFR ( Amer) 125, Glucose 105 H, Calcium 8.5, Magnesium 1.9, Total Bilirubin 0.3, AST 25, ALT 15, Alkaline Phosphatase 52, Troponin I < 0.01, NT-Pro-B Natriuret Pep 39.1, Total Protein 6.5, Albumin 3.9, Globulin 2.6, Albumin/Globulin Ratio 1.5, Plasma/Serum Alcohol 59 H 12/14/24 22:18: SARS-CoV-2 (PCR) Not detected, Influenza A Untype (PCR) Not detected, Influenza Type B (PCR) Not detected 12/14/24 23:00: Phosphorus 3.9, Magnesium 1.8 12/14/24 23:48: Troponin I < 0.01 12/15/24 02:53: Troponin I < 0.01 12/15/24 05:08: WBC 8.5, RBC 3.91 L, Hgb 12.2 L, Hct 35.7 L, MCV 91.3, MCH 31.2, MCHC 34.2, RDW 14.7, Plt Count 234, MPV 10.6 H, Neut % (Auto) 61.4, Lymph % (Auto) 23.2, Snyder % (Auto) 10.2 H, Eos % (Auto) 4.2, Baso % (Auto) 0.6, Neut # (Auto) 5.2, Lymph # (Auto) 2.0, Snyder # (Auto) 0.9, Eos # (Auto) 0.4, Baso # (Auto) 0.1, PT 9.9, INR 0.89 L, APTT 26.0, Sodium 134 L, Potassium 4.2 D, Chloride 104, Carbon Dioxide 25, Anion Gap 9.2, BUN 9, Creatinine 0.60 L D, Estimated Creat Clear 145, Estimated GFR 144, Est GFR ( Amer) 174 D, Glucose 99, Calcium 9.0, Phosphorus 4.0, Magnesium 2.1 D, Triglycerides 166 H, Cholesterol 168, LDL Cholesterol Direct 94.05 L, VLDL Cholesterol 33, HDL Cholesterol 38 L, Cholesterol/HDL Ratio 4.4 H I & O for Last 24 hours: Intake & Output 12/12/24 12/13/24 12/14/24 12/15/24 23:59 23:59 23:59 23:59 Intake Total 1480 / 1480 Output Total 450 / 450 Balance 1030 / 1030 Weight 68.039 kg 68.039 kg Constitutional Constitutional: no acute distress, average body habitus, chronically ill appearing and cooperative *Routine HEENT Exam Head: Present normocephalic Eye: Present EOMI and PERRL ENT: Present mucous membranes moist *Routine Neck Exam Neck: Present supple; Absent lymphadenopathy *Routine Respiratory Exam Respiratory: Present CTA bilaterally; Absent rhonchi, wheezes or crackles *Routine Cardiovascular Exam Cardiovascular: Present RRR *Routine Abdominal Exam Abdominal: Present soft and normoactive bowel sounds; Absent tenderness *Routine Rectal Exam Patient deferred: visual exam *Routine Exam Patient deferred: penile exam *Routine Extremities Exam Extremities: Absent cyanosis, clubbing or edema *Routine Skin Exam Skin: Present warm; Absent rash *Routine Neurological Exam Neurological: Present alert, oriented X3 and moving all extremities; Absent altered mental status Results Data Completed and Pending Labs on day of discharge: Labs from last 24 hours 12/15/24 12/15/24 12/14/24 05:08 02:53 23:48 WBC 8.5 RBC 3.91 L Hgb 12.2 L Hct 35.7 L MCV 91.3 MCH 31.2 MCHC 34.2 RDW 14.7 Plt Count 234 MPV 10.6 H Neut % (Auto) 61.4 Lymph % (Auto) 23.2 Snyder % (Auto) 10.2 H Eos % (Auto) 4.2 Baso % (Auto) 0.6 Neut # (Auto) 5.2 Lymph # (Auto) 2.0 Snyder # (Auto) 0.9 Eos # (Auto) 0.4 Baso # (Auto) 0.1 PT 9.9 INR 0.89 L APTT 26.0 Sodium 134 L Potassium 4.2 D Chloride 104 Carbon Dioxide 25 Anion Gap 9.2 BUN 9 Creatinine 0.60 L D Estimated Creat Clear 145 Estimated GFR 144 Est GFR ( Amer) 174 D Glucose 99 Calcium 9.0 Phosphorus 4.0 Magnesium 2.1 D Total Bilirubin AST ALT Alkaline Phosphatase Troponin I < 0.01 < 0.01 NT-Pro-B Natriuret Pep Total Protein Albumin Globulin Albumin/Globulin Ratio Triglycerides 166 H Cholesterol 168 LDL Cholesterol Direct 94.05 L VLDL Cholesterol 33 HDL Cholesterol 38 L Cholesterol/HDL Ratio 4.4 H Urine Opiates Screen Urine Methadone Screen Ur Barbituates Screen Ur Phencyclidine Scrn Ur Amphetamines Screen U Benzodiazepines Scrn Urine Cocaine Screen U Marijuana (THC) Screen Plasma/Serum Alcohol SARS-CoV-2 (PCR) Influenza A Untype (PCR) Influenza Type B (PCR) 12/14/24 12/14/24 12/14/24 23:00 22:18 20:48 WBC 9.2 RBC 3.97 L Hgb 12.6 L Hct 36.2 L MCV 91.2 MCH 31.7 H MCHC 34.8 RDW 14.7 Plt Count 220 MPV 10.3 Neut % (Auto) 63.6 Lymph % (Auto) 23.1 Snyder % (Auto) 8.6 Eos % (Auto) 3.6 Baso % (Auto) 0.4 Neut # (Auto) 5.9 Lymph # (Auto) 2.1 Snyder # (Auto) 0.8 Eos # (Auto) 0.3 Baso # (Auto) 0.0 PT INR APTT Sodium 133 L Potassium 3.4 L Chloride 97 L Carbon Dioxide 24 Anion Gap 15.4 H BUN 12 Creatinine 0.80 Estimated Creat Clear 109 Estimated GFR 103 Est GFR ( Amer) 125 Glucose 105 H Calcium 8.5 Phosphorus 3.9 Magnesium 1.8 1.9 Total Bilirubin 0.3 AST 25 ALT 15 Alkaline Phosphatase 52 Troponin I < 0.01 NT-Pro-B Natriuret Pep 39.1 Total Protein 6.5 Albumin 3.9 Globulin 2.6 Albumin/Globulin Ratio 1.5 Triglycerides Cholesterol LDL Cholesterol Direct VLDL Cholesterol HDL Cholesterol Cholesterol/HDL Ratio Urine Opiates Screen Urine Methadone Screen Ur Barbituates Screen Ur Phencyclidine Scrn Ur Amphetamines Screen U Benzodiazepines Scrn Urine Cocaine Screen U Marijuana (THC) Screen Plasma/Serum Alcohol 59 H SARS-CoV-2 (PCR) Not detected Influenza A Untype (PCR) Not detected Influenza Type B (PCR) Not detected 12/14/24 09:00 WBC RBC Hgb Hct MCV MCH MCHC RDW Plt Count MPV Neut % (Auto) Lymph % (Auto) Snyder % (Auto) Eos % (Auto) Baso % (Auto) Neut # (Auto) Lymph # (Auto) Snyder # (Auto) Eos # (Auto) Baso # (Auto) PT INR APTT Sodium Potassium Chloride Carbon Dioxide Anion Gap BUN Creatinine Estimated Creat Clear Estimated GFR Est GFR ( Amer) Glucose Calcium Phosphorus Magnesium Total Bilirubin AST ALT Alkaline Phosphatase Troponin I NT-Pro-B Natriuret Pep Total Protein Albumin Globulin Albumin/Globulin Ratio Triglycerides Cholesterol LDL Cholesterol Direct VLDL Cholesterol HDL Cholesterol Cholesterol/HDL Ratio Urine Opiates Screen Negative Urine Methadone Screen Negative Ur Barbituates Screen Negative Ur Phencyclidine Scrn Negative Ur Amphetamines Screen Positive H U Benzodiazepines Scrn Negative Urine Cocaine Screen Negative U Marijuana (THC) Screen Positive H Plasma/Serum Alcohol SARS-CoV-2 (PCR) Influenza A Untype (PCR) Influenza Type B (PCR) DS: Diagnosis Discharge Diagnosis (1) Heart failure with improved ejection fraction (HFimpEF): Status: Acute Code(s): I50.32 - Chronic diastolic (congestive) heart failure (2) Transient hypotension: Status: Acute Code(s): I95.9 - Hypotension, unspecified (3) Syncope: Status: Acute Code(s): R55 - Syncope and collapse Qualifiers: Syncope type: unspecified Qualified Code(s): R55 - Syncope and collapse (4) Alcohol intoxication: Status: Acute Code(s): F10.929 - Alcohol use, unspecified with intoxication, unspecified Qualifiers: Complication of substance-induced condition: uncomplicated Qualified Code(s): F10.920 - Alcohol use, unspecified with intoxication, uncomplicated (5) Dizziness: Status: Acute Code(s): R42 - Dizziness and giddiness (6) Acute hyponatremia: Status: Acute Code(s): E87.1 - Hypo-osmolality and hyponatremia Meds Home Medications and Allergies Home Medications ?Medication ?Instructions ?Recorded ?Confirmed ?Type bumetanide 1 mg tablet 1 mg PO DAILY #90 tabs 09/13/24 12/14/24 Rx folic acid 1 mg tablet 1 mg PO DAILY #90 tabs 09/13/24 12/14/24 Rx hydroxyzine pamoate 50 mg capsule 50 mg PO QID PRN Anxiety 09/13/24 12/14/24 History thiamine HCl (vitamin B1) 100 mg 100 mg PO DAILY #90 tabs 09/13/24 12/14/24 Rx tablet metoprolol succinate 50 mg 50 mg PO DAILY #30 tabs 11/22/24 12/14/24 Rx tablet,extended release 24 hr (Toprol XL) dapagliflozin propanediol 10 mg 10 mg PO DAILY 12/14/24 12/14/24 History tablet (Farxiga) naltrexone 50 mg tablet 50 mg PO DAILY #30 tabs 12/15/24 Rx sacubitril 24 mg-valsartan 26 mg 1 tab PO BID 30 days #60 tabs 12/15/24 Rx tablet (Entresto) trazodone 50 mg tablet 50 mg PO HS 12/15/24 12/15/24 History New Prescriptions to Start Prescriptions: Arnulfo Ariza sacubitril-valsartan [Entresto] Arnulfo Rees Allergies Allergy/AdvReac Type Severity Reaction Status Date / Time cephalexin Allergy Intermediate Swelling Verified 11/22/24 09:45 of Lip/Tongue/Throat Discharge Plan Disposition Patient Disposition: Home, Self-Care Condition: Fair Follow up Plan Follow up with: Carl Mace PA [Physician Integration Analyst] - 12/27/24 9:00 am Jhoan Syed DO [Primary Care Provider] - 12/21/24 1:40 pm Prescriptions/Medication Reconciliation: New sacubitril-valsartan [Entresto] 24-26 mg Tablet 1 tab PO BID 30 Days Qty: 60 0RF naltrexone 50 mg tablet 50 mg PO DAILY Qty: 30 0RF Continued metoprolol succinate [Toprol XL] 50 mg tablet extended release 24 hr 50 mg PO DAILY Qty: 30 5RF hydroxyzine pamoate 50 mg capsule 50 mg PO QID PRN (Reason: Anxiety) bumetanide 1 mg tablet 1 mg PO DAILY Qty: 90 3RF folic acid 1 mg tablet 1 mg PO DAILY Qty: 90 3RF thiamine HCl (vitamin B1) 100 mg tablet 100 mg PO DAILY Qty: 90 3RF dapagliflozin propanediol [Farxiga] 10 mg tablet 10 mg PO DAILY trazodone 50 mg tablet 50 mg PO HS Discontinued sacubitril-valsartan [Entresto] 49-51 mg tablet 1 tab PO BID Qty: 60 5RF Problem Reconciliation Problems Reviewed?: Yes Patient Discharge Instructions ACTIVITY: Continue current activity DIET: continue same diet Patient Instructions: DI for Syncope in Adults (Fainting), DI for Heart Failure, DI for Alcohol Poisoning Print Language: Sammarinese Providers Primary Care Provider: Jhoan Syed Admit Provider: Arnulfo Rees Attending Provider: Arnulfo Rees
--- NOTE | 2024-12-16 10:23 | SW/DCPLANNER ---
Spoke with patient on the phone. Patient stated that he is doing pretty good. Patient stated that he is aware of his upcoming appointments. Patient stated that he was able to get his new medicine from [facility]. Patient stated that he has no concerns or questions. Yeimy Robledo
--- NOTE | 2024-12-16 15:51 | PEERSUPPORT ---
Peer Support Note Patient Information Patient Information: DOS:12/15/2024 ? Reason: ETOH Syncope ? UDS Positive: ETOH, amp/meth, thc ? ? Building Rapport: Pt stated he has not been drinking any liquor, only beer. He says he had started drinking two beers a day then over the recent month he has drank more than he should. He says he was alert and talking, then all of a sudden collapsed. His girlfriend called 911, then the ambulance brought him in. ? Ps explored any other drugs used, disclosing concerns of lab results. ? Pt denies use of meth, but stated it may be on his marijuana. ? Ps shares personal experience emphasizing risk involved with continued use of drugs and or alcohol to overall health with statistics on accidental fatal overdoses. Pt suspects possibility of meth being on pot he has been smoking. Ps suggest caution to where and who he getting his thc from due to this. ? Pt is receptive and understanding. ? Ps discusses naltrexone with patient, possible to be prescribed by . Ps provides treatment contacts to have if he is unable to maintain sobriety at home. ? Plan of action: Refrain from drugs and or alcohol use Take medication as directed Attend follow up appointments as scheduled Pt agrees to follow up phone calls for ongoing support and connection to recovery.
== END 2024-12-15 15:51 | disposition home or self-care (01) ==
LOC: ER 21:27 → 2ND 22:25
PROVIDERS: Nurse Practitioner Family; Admitting Provider Internal Medicine Adolescent Medicine; Emergency Provider Student in an Organized Health Care Education/Training Program; PCP Internal Medicine; Visit Provider Internal Medicine Adolescent Medicine
DX: R55 Syncope and collapse (principal); F10.129 Alcohol abuse with intoxication, unspecified; I95.9 Hypotension, unspecified; Y90.2 Blood alcohol level of 40-59 mg/100 ml; F17.210 Nicotine dependence, cigarettes, uncomplicated; F15.920 Other stimulant use, unspecified with intoxication, uncomplicated; I50.22 Chronic systolic (congestive) heart failure; I42.6 Alcoholic cardiomyopathy; E87.1 Hypo-osmolality and hyponatremia; Z79.899 Other long term (current) drug therapy; Z71.41 Alcohol abuse counseling and surveillance of alcoholic
CPT/HCPCS: 36415; 71045; 80048; 80053; 80061; 80307; 80320; 83735; 83880; 84100; 84484; 85025; 85610; 85730; 87636; 93005; 93225; 93227; 93308; 99291; G0378; J1650

== ENCOUNTER 2024-12-17 16:12 | Outpatient (CLI) | payer MEDICAID, SELFPAY | END 2024-12-17 23:59 | disposition home or self-care (01) | LOC: RT 16:13 | PROVIDERS: PCP Internal Medicine; Visit Provider Nurse Practitioner Family | DX: R55 Syncope and collapse (principal) | CPT/HCPCS: 93270; 93272 ==

== ENCOUNTER 2025-06-17 15:13 | Outpatient (CLI) | payer MEDICAID, SELFPAY ==
--- OUTSIDE RECORDS SUMMARY | 2025-06-02 14:36 | XMS_ITS | Encounter Summary ---
Author Organization Healthcare Address [address] [place] [address] Care Team Providers Care [employer] Business [employer] Consultant Name Role Phone Jhoan Syed DO Primary Care Provider [phone] Reason for Referral * Imaging (Routine) - Closed Specialty Diagnoses / Procedures Referred By Michelle t Referred To Contact Cardiology Diagnoses Congestive heart failure, unspecified HF chronicity, unspecified heart failure type (CMS/HCC) Procedures Echo, Adult Transthoracic Complete Jean Jacome MD [address] [place] [address] Phone: tel: fax: [facility] () [address] [place] [address] Phone: tel: fax: Referral ID Status Reason Start Date Expiration Date V isits Requested Visits Authorized [id number] Closed Perform Procedure 03/31/2025 09/30/2026 1 1 Reason for Visit * Imaging (Routine) - Closed Specialty Diagnoses / Procedures Referred By Contac t Referred To Contact Cardiology Diagnoses Congestive heart failure, unspecified HF chronicity, unspecified heart failure type (CMS/HCC) Procedures Echo, Adult Transthoracic Complete Jean Jacome MD [address] [place] [address] Phone: tel: fax: [facility] () [address] [place] [address] Phone: tel: fax: Referral ID Status Reason Start Date Expiration Date V isits Requested Visits Authorized [id number] Closed Perform Procedure 03/31/2025 09/30/2026 1 1 Encounter Details Date Type Department Care Team (Latest Contact Info) Description 06/02/2025 2:36 PM EDT - 06/02/2025 11:59 PM EDT Hospital Encounter Medical Office Building Cardiac Diagnostic Testing Medical Office Building Echo Lab [address] [facility], [address] [place] [address] Congestive heart failure, unspecified HF chronicity, unspecified heart failure type (CMS/HCC) Discharge Disposition: Home or Self Care Social [...] by your partner or ex-partner? No 08/24/2024 PHQ-2 Answer Date Recorded Patient Health Questionnaire-2 Score 0 06/02/2025 Hunger Vital Sign Answer Date Recorded Within the past 12 months, y ou worried that your food would run out before you got the money to buy more. Never true 08/24/20 Within the past 12 months, t he [...] in a detention (including now)? No 08/24/2024 PHQ-9 Answer Date Recorded Patient Health Questionnaire-9 Score 0 06/02/2025 CAGE ASSESSMENT Answer Date Recorded Cage unable [...] drink first t margarito in the morning ([employer]) to steady your nerves or to get rid of a hangover? 0 08/20/2024 CAGE Questionnaire Score 0 024 Utilities Answer Date Recorded In the past 12 months has th e [employer], gas, oil, or water company threatened to shut off services in your home? No 08/24/2024 Sex and Gender Information Value Date Recorded Sex Assigned at Not on file Legal Sex Male 8:44 PM EDT Gender Identity Not on file Sexual Orientation Not on file documented as of this encounter Last Filed Vital Signs Vital Sign Reading Time Taken Comments Blood Pressure 133/82 06/02/2025 3:40 PM EDT Pulse 59 06/02/2025 3:40 PM EDT Temperature - - Respiratory Rate - - Oxygen Saturation - - Inhaled Oxygen Concentration - - Weight - - Height - - Body Mass Index - - documented in this encounter Functional Status * Over the past 2 weeks, how often have you been bothered by any of the following problems? Question Answer Date of Assessment Author Little interest or pleasure in doing things Not at all 06/02/2025 4:34 PM Carline Isbell CNA Feeling down, depressed, or hopeless Not at all 06/02/2025 4:34 PM Carline Isbell CNA Patient Health Questionnaire-2 Score 0 06/02/2025 4:34 PM Marshall Isbell CNA * Question Answer Date of Assessment Author Trouble falling or staying asleep, or sleeping too much Not at all 06/02/2025 4:34 PM Carline Isbell CNA Feeling tired or having little energy Not at all 06/02/2025 4:34 PM Carline Isbell CNA Poor appetite or overeating Not at all 06/02/2025 4: 34 PM Carline Isbell CNA Feeling bad about yourself - or that you are a failure or have let yourself or your family down Not at all 06/02/2025 4:34 PM Carline Isbell CNA Trouble concentrating on things, such as reading the newspaper or watching television Not at all 06/02/2025 4:34 PM Carline Isbell CNA Moving or speaking so slowly that other people could have noticed? Or the opposite - being so fidgety or restless that you have been moving around a lot more than usual. Not at all 06/02/2025 4:34 PM Carline Isbell CNA Thoughts that you would be better off or hurting yourself in some way Not at all 06/02/2025 4:34 PM Marshall Isbell CNA Patient Health Questionnaire-9 Score 0 06/02/2025 4:34 PM Marshall Isbell CNA * If you checked off any problems on this questionnaire so far, Question Answer Date of Assessment Author How difficult have these problems made it for you to do your work, take care of things at home, or get along with other people? Not difficult at all 06/02/2025 4:34 PM EDT Carline Richmond CNA documented as of this encounter Medications at Time of Discharge acetaminophen (Tylenol) 500 MG tablet Take 1 tablet (500 mg) by mouth every 6 (six) hours if needed for pain. eplerenone (Inspra) 25 MG tablet Take 1 tablet by mouth daily. 30 tablet 11 06/02/2025 hydrOXYzine pamoate (Vistaril) 50 MG capsule Take 1 capsule (50 mg) by mouth every 6 (six) hours if needed for anxiety. 30 capsule 08/26/2024 metoprolol succinate XL (Toprol-XL) 50 MG 24 hr tablet Take 1 tablet (50 mg) by mouth 1 (one) time each day. Do not crush or chew. 30 tablet 11 09/28/2024 sacubitril-valsar steele (Entresto) 24-26 MG tablet Take 1 tablet by mouth 2 (two) times a day. 60 tablet 11 10/01/2024 traZODone (Desyrel) 50 MG tablet Take 1 tablet (50 mg) by mouth at night if needed for sleep. 30 tablet 08/26/2024 documented as of this encounter Plan of Treatment Not on file documented as of this encounter Procedures Procedure Name Priority Date/Time Associated Diagnosis Comments ECHO, ADULT TRANSTHORACIC COMPLETE W/ CONTRAST Routine 06/02/2025 3:45 PM EDT Congestive heart failure, unspecified HF chronicity, unspecified heart failure type (CMS/HCC) documented in this encounter Results * ECHO, ADULT TRANSTHORACIC COMPLETE W/ CONTRAST (06/02/2025 3:45 PM EDT) Height 175.0 KENIA ISCV Weight 64.0 KENIA ISCV LVIDd 42 mm KENIA ISCV LVIDs 36 mm KENIA ISCV IVSd 6 mm KENIA ISCV LVPWd 10 mm KENIA ISCV LV MASS(C)D 101 g KENIA ISCV LV RWT 0.38 mm KENIA ISCV LVOT diam 20 mm KENIA ISCV LVOT AREA 3.1 cm2 KENIA ISCV MV E Vmax 57.8 cm/s KENIA ISCV MV A Vmax 47.4 cm/s KENIA ISCV MV E/A 1.2 cm/s KENIA ISCV LA dimension 29 mm KENIA ISCV RV s' Osito 12.2 cm/s KENIA ISCV TAPSE 25 mm KENIA ISCV PA acc time 140 msec KENIA ISCV mean PAP 16 mmHg KENIA ISCV MV dec slope 216 cm/s2 KENIA ISCV MV dec time 270 ms KENIA ISCV MV P1/2t 78 ms KENIA ISCV MVA(P1/2t) 2.8 cm2 KENIA ISCV Ao Root Diam 35 mm KENIA ISCV Asc Ao Diam 33 mm KENIA ISCV PA ND(ACCEL) 17.3 mmHg KENIA ISCV LV EDV(MOD-4ch) 137 mL KENIA ISCV LV ESV(MOD4ch) 66 mL KENIA ISCV EF(MOD-sp4) 52 % KENIA ISCV LV Lat e' Velocity 11.7 cm/s KENIA ISCV LV Sept e' Osito 10.8 cm/s KENIA ISCV Lat E/e' 4.9 KENIA ISCV Sep E/e' 5.4 KENIA ISCV Avg E/e' 5.1 KENIA ISCV LV EDV(MOD-2ch) 134 mL KENIA ISCV LV ESV(MOD2ch) 53 mL KENIA ISCV EF(MOD-sp2) 60 % KENIA ISCV EDV(MOD-bp) 136 mL KENIA ISCV ESV(MOD-bp) 60 mL KENIA ISCV EF(MOD-bp) 56 % KENIA ISCV Anatomical Region Laterality Modality Echocardiography Narrative 06/02/2025 5:47 PM EDT Left Ventricle: The left ventricle is normal size. There is normal left ventricular myocardial thickness and mass. The LVEF as measured by biplane volume is 56%. The diastolic function is normal. The inferior wall is hypokinetic. Right Ventricle: The right ventricle is normal in size. The right ventricular systolic function is normal. The spectral Doppler envelope of TR is not adequate for calculating the right ventricular systolic pressure (RVSP). Based upon other 2D and Doppler features, the RVSP is probably normal or at most mildly elevated. Pericardium: No pericardial effusion. Compared to the most recently available prior study, and allowing for differences in image quality and technique, A significant improvement in LVEF and trace TR noted. Left Ventricle The left ventricle is normal size. There is normal left ventricular myocardial thickness and mass. No left ventricular mass or thrombus is seen. The LVEF as measured by biplane volume is 56%. The diastolic function is normal. The inferior wall is hypokinetic. Right Ventricle The right ventricle is normal in size. The right ventricular systolic function is normal. The spectral Doppler envelope of TR is not adequate for calculating the right ventricular systolic pressure (RVSP). Based upon other 2D and Doppler features, the RVSP is probably normal or at most mildly elevated. Left Atrium The left atrial size is normal with an indexed volume of 16-34 mL/m2. The interatrial septum is intact with no evidence for an atrial septal defect. Right Atrium The right atrial size is normal. IVC/SVC The IVC was not well visualized, and an assumed pressure of 8mmHg was used for calculations. Mitral Valve The mitral valve leaflets are normal in appearance with no evidence of mitral valve prolapse. There is no mitral valve vegetation. There is no mitral regurgitation. There is no mitral stenosis. Tricuspid Valve The tricuspid valve is normal in appearance. There is no tricuspid valve vegetation. There is trace tricuspid regurgitation. There is no tricuspid stenosis. Aortic Valve The aortic valve appears to be trileaflet. There is no aortic valve vegetation. There is no valvular regurgitation. There is no hemodynamically significant valvular aortic stenosis. Pulmonic Valve The pulmonic valve is grossly normal. There is no pulmonic regurgitation. There is no pulmonic stenosis. Pericardium No pericardial effusion. Great Vessels The aortic root is normal in size. The sinus of Valsalva (aortic root) diameter is 35 mm by leading edge to leading edge method. In the maximally visualized portion, the ascending aorta appears normal in size. In the maximally visualized portion, the aortic arch appears normal in size. The main pulmonary artery is normal in size. Study Details A complete transthoracic echocardiogram using two-dimensional (2D), m-mode, color and spectral flow Doppler imaging was performed. During the study the apical, parasternal, subcostal and suprasternal view was captured. Definity contrast was used during the study. The study was technically difficult due to patient's clinical status and body habitus. Heart rate was bradycardic. Height: 175.0 cm. Weight: 64.0 kg. The heart rhythm during this exam was most suggestive of a sinus rhythm. Study Recommendation Compared to the most recently available prior study, and allowing for differences in image quality and technique, A significant improvement in LVEF and trace TR noted. Jean Jacome MD CV ECHO PROCEDURES Final Resul t documented in this encounter Visit Diagnoses Diagnosis Congestive heart failure, unspecified HF chronicity, unspecified heart failure type (CMS/HCC) documented in this encounter Administered Medications Inactive Administered Medications - up to 3 most recent administrations Medication Order MAR Action Action Date Dose Rate Site perflutren lipid microspheres (Definity) injection 10 mcL/kg 10 mcL/kg, Intravenous, Once in imaging, 1 dose, Starting on Teresa 06/02/25 at 1546, Until Teresa 06/02/25 at 1546, Routine Given 06/02/2025 3:46 PM EDT documented in this encounter Additional Health Concerns Assessment Noted Time PHQ-9 Depression Total Score: 0 06/02/20 4:34 PM EDT A fall risk assessment has been complete d for the patient 06/02/2025 4:34 PM EDT A Body Mass Index follow-up plan has been documented for the patient 06/04/2025 5:25 PM EDT documented as of this encounter Care Teams Sap Business Intelligence Consultant Relationship Specialty Start Date End Date Jhoan Syed DO [address] [place] [address] PCP - General 08/31/24 documented as of this encounter
--- OUTSIDE RECORDS SUMMARY | 2025-06-02 16:20 | XMS_ITS | Encounter Summary ---
Author Organization Healthcare Address [address] [place] [address] Care Team Providers Care Graduate Teacher Education Name Role Phone YahairaJhoan Primary Care Provider [phone] Encounter Details Date Type Department Care Team (Late st Contact Info) Description 06/02/2025 4:20 PM EDT Office Visit [facility] [place] [address] [facility], [address] [place] [address] Jean Jacome MD [address] [place] [address] Chronic systolic heart failure (CMS/HCC) (Primary Dx) Social History Tobacco Use [...] a senior care (including now)? No 08/24/2024 PHQ-9 Answer Date [...] drink first t margarito in the morning ([employer]) to steady your nerves or to get rid of a hangover? 0 08/20/2024 CAGE Questionnaire Score 0 024 Utilities Answer Date Recorded In the past 12 months has [employer], gas, oil, or water company threatened to shut off services in your home? No 08/24/2024 Sex and Gender Information Value Date Recorded Sex Assigned at Not on file Legal Sex Male 8:44 PM EDT Gender Identity Not on file Sexual Orientation Not on file documented as of this encounter Last Filed Vital Signs Vital Sign Reading Time Taken Comments Blood Pressure 115/76 06/02/2025 4:24 PM EDT Pulse 64 06/02/2025 4:24 PM EDT Temperature - - Respiratory Rate - - Oxygen Saturation 99% 06/02/2025 4:24 PM EDT Inhaled Oxygen Concentration - - Weight 69.2 kg (152 lb 8.9 oz) 06/02/2025 4:24 P M EDT Height 175.3 cm (5' 9 ) 06/02/2025 4:24 PM EDT Body Mass Index 22.53 06/02/2025 4:24 PM EDT documented in this encounter Functional Status * Over the past 2 weeks, how often have you been bothered by any of the following problems? Question Answer Date of Assessment Author Little interest or pleasure in doing things Not at all 06/02/2025 4:34 PM EDT Carline Richmond CNA Feeling down, depressed, or hopeless Not at all 06/02/2025 4:34 PM EDT Carline Richmond CNA Patient Health Questionnaire-2 Score 0 06/02/2025 4:34 PM EDT Marshall Richmond CNA * Question Answer Date of Assessment Author Trouble falling or staying asleep, or sleeping too much Not at all 06/02/2025 4:34 PM EDT Carline Richmond CNA Feeling tired or having little energy Not at all 06/02/2025 4:34 PM EDT Carline Richmond CNA Poor appetite or overeating Not at all 06/02/2025 4: 34 PM EDT Carline Richmond CNA Feeling bad about yourself - or that you are a failure or have let yourself or your family down Not at all 06/02/2025 4:34 PM EDCarline Vasquez CNA Trouble concentrating on things, such as [...] way Not at all 06/02/2025 4:34 PM Carline Isbell CNA Patient Health Questionnaire-9 Score 0 06/02/2025 4:34 PM Marshall Isbell CNA * If you checked off any problems on this questionnaire so far, Question Answer Date of Assessment Author How difficult have these problems made it for you to do your work, take care of things at home, or get along with other people? Not difficult at all 06/02/2025 4:34 PM Carline Isbell CNA documented as of this encounter Miscellaneous Notes * Progress Notes - Jean Jacome MD - 06/02/2025 4:20 PM EDT Images from the original note were not included. Note to patient: The Century Cures Act makes medical notes like these available to patients inthe interest of transparency. However, be advised that this is a medical document. It is intended as huvu-ho-ahfd communication. It is written in medical language and may contain abbreviations or verbiage that are unfamiliar. It may appear blunt or direct. Medical documents are intended to carry relevant information, facts as evident and the clinical opinion of the practitioner. [facility] Outpatient Follow up Visit Date of Service: 06/02/2025 Patient Name Jaziel Lu Date of 1975 Encounter Provider: Jean Jacome MD Referring Provider: Arti Stanley MD Chief Complaint Jaziel Lu is a 49 y.o. male presenting for evaluation of heart failure with reduced ejection fraction, alcohol related cardiomyopathy at the request of Arti Stanley MD. He is here today with his sister and girlfriend. Prior Cardiac and Medical History/History of Present Illness Mr. Lu is a 48 year old male with PMH of severe alcohol use disorder was admitted from 08/20/24 to 08/26/24 at [facility] as a transfer from an OSH with [...] Daily, lisinopril 5 mg, Aldactone 25 mg, Hrvdciw11 mg every day. Diuretic was adjusted from lasix40 mg IV to Bumex 1 mg every day. He says 3-4 years he noted he was having chest pain and had a LHC done at [facility] 3 yearsand was told that he did not have any coronary artery disease. 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 Echo today shows significant improvement in LVEF to 56%. He was first diagnosed with cardiac issues in Aug 2024. Today, he reports the following heart failure symptoms: - Dyspnea: Yes, he can walk a little further than a block, will get short of breath going up 1 flight of stairs. - Orthopnea: No - PND: No - Bendopnea: No - Leg swelling: No - Chest pain: Yes, a sharp pain under his left arm, once a week, lasts 15 min - Lightheadedness/dizziness: Yes, once or twice every day, bending over mostly triggers it , or standing up too quick - Syncope: No - Palpitations: No - Abdominal bloating/early satiety: Yes, some days - Fatigue: Overall, he reports being limited by cardiovascular symptoms. He has not been exercising but he does do some yard work and vaccuums the home . He endorses the following exercise tolerance: 2 blocks, 1 flights of stairs until He has to [...] history on file. Allergies Allergies as of 06/02/2025 - Reviewed 06/02/2025 Allergen Reaction Noted Cephalexin Shortness of breath and Swelling 08/21/2024 Medication List Current Outpatient Medications Medication Sig Dispense Refill acetaminophen (Tylenol) 500 MG tablet Take 1 tablet (500 mg) by mouth every 6 (six) hours if neededfor pain. bumetanide (Bumex) 1 MG tablet Take 1 tablet (1 mg) by mouth 1 (one) time each day. 30 tablet 0 dapagliflozin (Farxiga) 10 MG tablet Take 1 tablet (10 mg) by mouth 1 (one) time each day. 30 tablet 1 hydrOXYzine pamoate (Vistaril) 50 MG capsule Take 1 capsule (50 mg) by mouth every 6 (six) hours ifneeded for anxiety. 30 capsule 0 metoprolol succinate XL (Toprol-XL) 50 MG 24 hr tablet Take 1 tablet (50 mg) by mouth 1 (one) time each day. Do not crush or chew. 30 tablet 11 sacubitril-valsartan (Entresto) 24-26 MG tablet Take 1 tablet by mouth 2 (two) times a day. 60 tablet 11 traZODone (Desyrel) 50 MG tablet Take 1 tablet (50 mg) by mouth at night if needed for sleep. 30 tablet 0 spironolactone (Aldactone) 25 MG tablet Take 1 tablet (25 mg) by mouth 1 (one) time each day. (Patient not taking: Reported on 06/02/2025) 30 each 1 No current facility-administered medications for this [...] Aug 2024 when he got admitted. He used to drink 6 beers a day. Nolonger drinks tequila. He now drinks one beer every 4-5 days. - Illicit drugs: cocaine in the past [...] ROS - as above Physical Exam Vitals: 06/02/25 1624 BP: 115/76 BP Location: Right arm Patient Position: Sitting Pulse: 64 SpO2: 99% Weight: 69.2 kg (152 lb 8.9 oz) Height: 1.753 m (5' 9 ) Body mass index is 22.53 kg/m??. Gen: Appears reasonably comfortable and in [...] Chemistry Lab Results Component Value Date/Time NA 134 (L) 09/28/2024 1643 K 4.2 09/28/2024 1643 CL 93 (L) 09/28/2024 1643 CO2 27 09/28/2024 1643 BUN 7 09/28/2024 1643 CREATININE 0.83 09/28/2024 1643 Lab Results Component Value Date/Time CALCIUM 9.6 09/28/2024 1643 ALKPHOS 79 09/28/2024 1643 AST 31 09/28/2024 1643 ALT 22 09/28/2024 1643 BILITOT 0.5 09/28/2024 1643 Lab Results Component Value Date WBC 9.91 09/28/2024 RBC 5.27 09/28/2024 HGB 16.8 09/28/2024 HCT 50.2 09/28/2024 MCV 95 09/28/2024 MCH 31.9 09/28/2024 MCHC 33.5 09/28/2024 PLT 240 09/28/2024 RDW 12.3 09/28/2024 MONOPCT 11 08/23/2024 EOSPCT 1 08/23/2024 BASOPCT 1 08/23/2024 NEUTROABS 5.84 08/23/2024 LYMPHSABS 1.54 08/23/2024 EOSABS 0.05 08/23/2024 Lab Results Component Value Date TSH 2.60 08/20/2024 DIAGNOSTIC STUDIES - EKG (08/20/24): Sinus tachycardia, PACs, LVH Echocardiograms - TTE (08/20/24): LVEDD 59 mm, LVEF 14%, RV: Moderately dilated, severely reduced function, mild MR, mild to moderate TR Cardiac catheterizations - Had a LHC at [facility] 3 years ago which he reports as normal. Will obtain records. Other Non-Invasive Imaging - Says he had a stress test at [facility] 3 years ago - will obtain records. Impression and Plan: In summary, Jaziel Lu is a 49 y.o. male presenting for follow up of alcohol related cardiomyopathy and HFrEF with EF <20% with NYHA III symptoms. His LV function has improved with GDMT to56% today. Encouraged continued compliance with medications citing TRED-HF data. Congratulated him on decreased the amount of alcohol he drinks. Encouraged completely stopping alcohol and tobacco use. Offered resources, but patient would like to try himself. Today, the patient appears Euvolemic, Warm and well perfused. LV systolic dysfunction: Severe RV dysfunction: Severe Etiology: Drug/toxin-induced cardiomyopathy (Alcohol) ACC/AHA stage: C NYHA functional class: III As such, I have made the following recommendations: Start eplerenone Continue other GDMT Patient has been very compliant with his meds. Encouraged continued compliance now that his LV function has improved. Encouraged complete alcohol and smoking cessation. Evidence Based Medical Therapy for Heart Failure: - ACEi/ARB/ARNI: Maximally tolerated dose - Aldosterone antagonist: Maximally tolerated dose - Beta-jessee: Maximally tolerated dose - Digoxin: Not indicated - Hydralazine/Nitrates: Not indicated - Ivabradine: Not indicated - SGLT2i: Maximally tolerated dose Device Therapy for Heart Failure: - ICD/BiV-PPM/BiV-ICD: Not currently indicated - MitraClip: no MR - Barostim: not indicated currently - CardioMEMs: not indicated currently Co-Morbidities Perspective: - Atrial fibrillation: no - CAD: no - Diabetes: will obtain an A1C and lipid profile at the next draw - Iron-deficiency anemia: ordered iron studies - Lifestyle/weight/BMI: encouraged a healthy diet and exercise. - Sleep apnea: no - Substance use: Encouraged alcohol and smoking session. Offered resources but the patient would like to stop himself. Labs: CBC, CMP, NT-proBNP, iron studies. Return [...] Heart Failure/Transplant Cardiology [facility] documented in this encounter Plan of Treatment Not on file documented as of this encounter Visit Diagnoses Diagnosis Chronic systolic heart failure (CMS/HCC)- Primary Chronic systolic heart failure documented in this encounter Additional Health Concerns Assessment Noted Time PHQ-9 Depression Total Score: 0 06/02/20 4:34 PM EDT A fall risk assessment has been complete d for the patient 06/02/2025 4:34 PM EDT A Body Mass Index follow-up plan has been documented for the patient 06/04/2025 5:25 PM EDT documented as of this encounter Care Teams Graduate Teacher Education Relationship Specialty Start Date End Date Jhoan Syed DO [address] [place] [address] PCP - General 08/31/24 documented as of this encounter
--- OUTSIDE RECORDS SUMMARY | 2025-06-17 15:16 | XMS_ITS | Encounter Summary ---
Author Organization Healthcare Address [address] [place] [address] Care Team Providers Care Medical Management Trainer Name Role Phone YahairaJhoan Primary Care Provider [phone] Encounter Details Date Type Department Care Team (Late st Contact Info) Description 06/14/2025 Orders Only [facility] [place] [address] [place] [address] Aydee Rolon, RN - Outpatient Center Chronic systolic heart failure (CMS/HCC) (Primary Dx) [...] in a snf (including now)? No 08/24/2024 PHQ-9 Answer Date [...] first t margarito in the morning (EYE-AUTOMATIC OUTSOLE CUTTER) to steady your nerves or to get [...] encounter Miscellaneous Notes * Progress Notes - Aydee Rolon, RN - 06/14/2025 3:52 PM EDT Order faxed to [facility] per pt request. Will go 06/15-06/16. documented in this encounter Plan of Treatment Scheduled Orders Name Type Priority Associated Diagnoses Orde r Schedule Basic metabolic panel Lab Routine Chronic systolic heart failure (CMS/HCC) Expected: 06/14/2025 (Approximate), Expires: 12/16/2026 documented as of this encounter Visit Diagnoses [...] documented as of this encounter Care Teams Medical Management Trainer Relationship Specialty Start Date End Date Jhoan Syed DO [address] [id number] PCP - General 08/31/24 documented as of this encounter
--- OUTSIDE RECORDS SUMMARY | 2025-06-17 15:16 | XMS_ITS | Encounter Summary ---
Author Organization Healthcare Address [address] [place] [address] Care Team Providers Care Vocal Teacher Name Role Phone Jhoan Syed DO Primary Care Provider [phone] Encounter Details Date Type Department Care Team (Latest Contact Info) Description 06/02/2025 Travel Social History Tobacco Use Types Packs/Day [...] the money to buy more. Never true 10/15/20 24 Within the past 12 months, t [...] place to sleep or slept in a residential (including now)? 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
--- OUTSIDE RECORDS SUMMARY | 2025-06-17 15:16 | XMS_ITS | Clinical Summary ---
Author Organization Healthcare Address [address] [place] [address] Care Team Providers Care Environmental Department Manager Name Role Phone YahairaJhoan Primary Care Provider [phone] Allergies Active Allergy Reactions Criticality Noted Date [...] (six) hours if needed for pain. Active hydrOXYzine pamoate (Vistaril) 50 MG capsule Take 1 capsule (50 mg) by mouth every 6 (six) hours if needed for anxiety. 30 capsule 4 Active traZODone (Desyrel) 50 MG tablet Take 1 tablet (50 mg) by mouth at night if needed for sleep. 30 tablet 4 Active dapagliflozin (Farxiga) 10 MG tabletIndicatio ns:Left Systolic Heart Failure Take 1 tablet (10 mg) by mouth 1 (one) time each day. 30 tablet 1 4 Active metoprolol succinate XL (Toprol-XL) 50 MG 24 hr tablet Take 1 tablet (50 mg) by mouth 1 (one) time each day. Do not crush or chew. 30 tablet 11 4 Active bumetanide (Bumex) 1 MG tablet Take 1 tablet (1 mg) by mouth 1 (one) time each day. 30 tablet 4 Active sacubitril-vals domingo (Entresto) 24-26 MG tablet Take 1 tablet by mouth 2 (two) times a day. 60 tablet 11 4 Active eplerenone (Inspra) 25 MG tablet Take 1 tablet by mouth daily. 30 tablet 11 5 Active spironolactone (Aldactone) 25 MG tablet Take 1 tablet (25 mg) by mouth 1 (one) time each day. 30 each 1 4 06/02/20 25 Discontinue d(Per Patient Report) Active Problems Problem Noted Date Diagnosed Date At high risk for falls 08/31/2024 Resolved Problems Problem Noted Date Diagnosed Date Resolved Date Hyponatremia 08/20/2024 08/26/2024 Encounters Date Type Department Care Team Description 06/14/2025 Orders Only [facility] [address] [place] [address] Aydee Rolon surgical aide systolic heart failure (CMS/HCC) (Primary Dx) 06/13/2025 Telephone [facility] [address] [place] [address] Aydee Rolon RN 06/02/2025 4:20 PM EDT Office Visit [facility] [address], [address] [place] [address] Jean Jacome MD Chronic systolic heart failure (CMS/HCC) (Primary Dx) 06/02/2025 2:36 PM EDT - 06/02/2025 11:59 PM EDT Hospital Encounter Medical Office Building Cardiac Diagnostic Testing Medical Office Building Echo Lab [address] , [address] [place] [address] Congestive heart failure, unspecified HF chronicity, unspecified heart failure type (CMS/HCC) Discharge Disposition: Home or Self Care 06/02/2025 Travel 03/31/2025 Telephone [facility] [address] , [address] [place] [address] Jean Jacome MD HCN - Patient Message 03/31/2025 Orders Only [facility] [place] [address] [place] [address] Amanda Patel, RN Congestive heart failure, unspecified HF chronicity, unspecified heart failure type (CMS/HCC) (Primary Dx) 03/31/2025 Orders Only [facility] [place] [address] [place] [address] Amanda Patel RN from Last 3 Months Immunizations Immunization Administration Dates Next Due Tdap 08/02/2024 Social [...] place to sleep or slept in a fci (including now)? No 08/24/2024 PHQ-9 Answer Date [...] drink first t margarito in the morning (EYE-DEPARTMENT OPERATIONS MANAGER) to steady your nerves or to get rid of a hangover? 0 08/20/2024 CAGE Questionnaire Score 0 024 Utilities Answer Date Recorded In the past 12 months has th e [employer], gas, oil, or water company threatened to [...] Pulse 64 06/02/2025 4:24 PM EDT Temperature 36.4 C (97.5 F) 08/31/2024 12:01 PM EDT Respiratory Rate 18 08/31/2024 12:01 PM EDT Oxygen Saturation 99% 06/02/2025 4:24 PM EDT Inhaled Oxygen Concentration - - Weight 69.2 kg (152 lb 8.9 oz) 06/02/2025 4:24 P M EDT Height 175.3 cm (5' 9 ) 06/02/2025 4:24 PM EDT Body Mass Index 22.53 06/02/2025 4:24 PM EDT Plan of Treatment Health Maintenance Due Date Last Done Comments [facility]-Diabetes: Hemoglobin A1C 1976 [facility]-/Child/Adol SDOH Screenings 1976 Diabetes: Dental Exam 1986 [facility]-Hepatitis A Vaccines (1 of 2 - Risk 2-dose series) 1995 [facility]-Hepatitis B Vaccines (1 of 3 - 19+ 3-dose series) 1995 [facility]-Pneumococcal Vaccine: Pediatrics (0 to 5 Years) and At-Risk Patients (6 to 49 Years) (1 of 2 - PCV) 1995 CT Colonography 2021 Colonoscopy 2021 FIT-DNA 2021 FIT 2021 FOBT 2021 Sigmoidoscopy 2021 [facility]-Colorectal Cancer Screening 2021 [id number] Vaccine ( - season) 2024 [facility]- SDOH Screenings 02/22/2025 [facility]-Adult SDOH Screenings 02/22/2025 08/24/2024 [facility]-Influenza Vaccine (#1) 2025 [facility]-Depression Screening 06/02/2026 025, 06/02/2025 [facility]-Zoster Vaccines (1 of 2) 2026 [facility]-DTaP,Tdap,and Td Vaccine s (2 - Td or Tdap) 08/02/2034 08/02/2024 [facility]-HIV Screening Completed 08/02/2024 [facility]-Hepatitis C Screening Completed 08/02/2024 HPV Vaccines Aged Out No longer eligi ble based on patient's age to complete this topic [facility]-HIB Vaccines Aged Out No longer e [...] HF chronicity, unspecified heart failure type (CMS/HCC) HEPATITIS C ANTIBODY - ED W/REFLEX TO HCV QUANT PCR STAT 08/02/2024 8:08 PM EDT ED HIV 1/2 ANTIBODY/ANTIGEN SCREEN WITH REFLEX TO HIV I/II DIFFERENTIATION STAT 08/02/2024 8:08 PM EDT from Last 3 Months or Most Recently Relevant to Health Maintenance Results * ECHO, ADULT TRANSTHORACIC COMPLETE W/ [...] Ao Diam 33 mm KENIA ISCV PA MA(ACCEL) 17.3 mmHg KENIA ISCV LV EDV(MOD-4ch) 137 [...] MD CV ECHO PROCEDURES Final Resul t * ED HIV 1/2 Antibody/Antigen Screen w/Reflex to HIV 1/2 Differentiation (08/02/2024 8:08 PM EDT) HIV 1 & 2 Antibody/Antigen Screen Non Reactive Non Reactive 08/02/2024 9:03 PM EDT [facility] Comment:Screening for HIV 1 & 2 antibodies, and P24 antigen is NONREACTIVE. No confirmatory testing is required. Blood Venous blood specimen / Unknown Venipuncture / Unknown 08/02/2024 8:08 PM EDT 08/02/2024 8:22 PM EDT us Nicol Kilgore MD LAB BLOOD ORDERABLES Final Re sult [facility] [address] [place] [address] * Hepatitis C Antibody - ED (08/02/2024 8:08 PM EDT) Hepatitis C Antibody Negative Negative 08/02/2024 10:30 PM EDT [facility] Blood Venous blood specimen / Unknown Venipuncture / Unknown 08/02/2024 8:08 PM EDT 08/02/2024 8:22 PM EDT us Nicol Kilgore MD LAB BLOOD ORDERABLES Final Re sult Performing Organization Address City/[facility]/ZIP Co de Phone Number [facility] [address] [place] [address] from Last 3 Months or Most Recently Relevant to Health Maintenance [place] [address] [place] [address] MEDICAID Advance Directives * Full Code (Latest Code Status on File) Date Activated Date Inactivated Comments 08/20/2024 11:01 PM 08/26/2024 6:03 PM Question Answer Comments Patient has decision-making capacity? Yes Care Teams Environmental Department Manager Relationship Specialty Start Date End Date Jhoan Syed DO [address] [place] [address] PCP - General 08/31/24
--- OUTSIDE RECORDS SUMMARY | 2025-06-17 15:16 | XMS_ITS | Encounter Summary ---
Author Organization Healthcare Address [address] [place] [address] Care Team Providers Care Silverware Buffer Name Role Phone Jhoan Syed DO Primary Care Provider [phone] Encounter Details Date Type Department Care Team (Late st Contact Info) Description 06/13/2025 Telephone [facility] [place] [address] [place] [address] Aydee Rolon, RN - Outpatient Center Social [...] drink first t margarito in the morning (EYE-PULP PILER) to steady your nerves or to get [...] Telephone Encounter - Aydee Rolon, RN - 06/13/2025 11:09 AM EDT LVM for pt with lab reminder after starting Inspra. Callback number provided requesting start date and where he would like to have labs done. Will try once more. documented in this encounter Plan of Treatment [...] documented as of this encounter Care Teams Silverware Buffer Relationship Specialty Start Date End Date Jhoan Syed DO [address] [place] [address] PCP - General 08/31/24 documented as of this encounter
--- OUTSIDE RECORDS SUMMARY | 2025-06-17 15:17 | XMS_ITS | Encounter Summary ---
Author Organization Healthcare Address [address] [place] [address] Care Team Providers Care Punch Molder Name Role Phone Jhoan Syed DO Primary Care Provider [phone] Reason for Visit * Reason Onset Date Comments HCN - Patient Message 03/31/2025 Encounter Details Date Type Department Care Team (Late st Contact Info) Description 03/31/2025 Telephone [facility] [place] [address] [place] [address] Jean Jacome MD [address] [place] [address] HCN - Patient Message Social History Tobacco Use Types Packs/Day Years [...] place to sleep or slept in a alf (including now)? No 08/24/2024 CAGE ASSESSMENT Answer [...] drink first t margarito in the morning (EYE-PUBLIC DEFENDER) to steady your nerves or to get rid of a hangover? 0 08/20/2024 CAGE Questionnaire Score 0 024 Utilities Answer Date Recorded In the past 12 months has th e [employer], gas, oil, or water company threatened to shut off services in your home? No 08/24/2024 Sex and Gender Information Value Date Recorded Sex Assigned at Not on file Legal Sex Male 8:44 PM EDT Gender Identity Not on file Sexual Orientation Not on file documented as of this encounter Miscellaneous Notes * Telephone Encounter - Verito Whyte - 03/31/2025 1:26 PM EDT Patient Phone Message Reason for Call: Lesly, from [facility], is requesting a PA for the referral for ECHO. She says they do not have any available openings until 04/11/2025. Best contact number and optimal time of day to reach caller: [phone] Note: Please do not reply to this message. Follow-up communication and further actions as a result of this message need to be communicated with the patient directly, if the patient is not active onMyChart. If the patient is active on MyChart, they will receive notification of the communication/outcome via [employer]. documented in this encounter Plan of Treatment [...] documented as of this encounter Care Teams Punch Molder Relationship Specialty Start Date End Date Jhoan Syed DO [address] [place] [address] PCP - General 08/31/24 documented as of this encounter
[2025-06-17 19:03] LABS: Anion Gap 12.3 mEq/L (5-15); Blood Urea Nitrogen 16 mg/dl (9-20); Calcium 9.1 mg/dl (8.4-10.2); Carbon Dioxide 26 mmol/L (22.0-30.0); Chloride 96 mmol/L (98-107); Creatinine,Serum 1.00 mg/dl (0.66-1.25); Estimated Glomerular Filt Rate 80 ml/min (>60); GFR (African American) 97 ML/MIN (>60); Glucose 88 mg/dl (74-100); Potassium 4.3 mmoL/L (3.5-5.1); Sodium 130 mmol/L (136-145)
== END 2025-06-17 23:59 | disposition home or self-care (01) ==
LOC: LAB 15:14
PROVIDERS: PCP Family Medicine; Visit Provider Internal Medicine
DX: I50.22 Chronic systolic (congestive) heart failure (principal)
CPT/HCPCS: 36415; 80048

== ENCOUNTER 2025-08-12 11:22 | Outpatient (CLI) | payer MEDICAID, SELFPAY ==
--- NOTE | 2025-08-12 11:25 | XR_ITS ---
FINAL REPORT CLINICAL HISTORY: low back pain COMPARISON: None FINDINGS: 3 views of the lumbar spine were obtained. There is no evidence of fracture. There is no malalignment. The vertebrae are normal in height. There is mild anterior osteophyte formation throughout the lumbar vertebra. No paraspinous soft tissue abnormalities identified. IMPRESSION: No acute bony abnormality. Mild osteophyte formation. Reviewed, Interpreted and Dictated by Yvan Dumont MD Transcribed by Aydee Melara Authenticated and [facility]
--- OUTSIDE RECORDS SUMMARY | 2025-08-12 11:25 | XMS_ITS | Clinical Summary ---
Author Organization Healthcare Address [address] [place] [address] Care Team Providers Care Lead Generation Marketing Manager Name Role Phone YahairaJhoan Primary Care Provider [phone] Allergies Active Allergy Reactions Criticality Noted Date [...] if needed for anxiety. 30 capsule 08/26/2024 Active traZODone (Desyrel) 50 MG tablet Take 1 tablet (50 mg) by mouth at night if needed for sleep. 30 tablet 08/26/2024 Active dapagliflozin (Farxiga) 10 MG tabletIndicatio ns:Left Systolic Heart Failure Take 1 tablet (10 mg) by mouth 1 (one) time each day. 30 tablet 1 08/26/2024 Active metoprolol succinate XL (Toprol-XL) 50 MG 24 hr tablet Take 1 tablet (50 mg) by mouth 1 (one) time each day. Do not crush or chew. 30 tablet 11 09/28/2024 Active bumetanide (Bumex) 1 MG tablet Take 1 tablet (1 mg) by mouth 1 (one) time each day. 30 tablet 09/28/2024 Active sacubitril-vals domingo (Entresto) 24-26 MG tablet Take 1 tablet by mouth 2 (two) times a day. 60 tablet 11 10/01/2024 Active eplerenone (Inspra) 25 MG tablet Take 1 tablet by mouth daily. 30 tablet 11 06/02/2025 Active Active Problems Problem Noted Date Diagnosed Date At high risk for falls 08/31/2024 Resolved Problems Problem Noted Date Diagnosed Date Resolved Date Hyponatremia 08/20/2024 08/26/2024 Encounters Date Type Department Care Team Description 06/14/2025 Orders Only [facility] [address] [place] [address] Aydee Rolon RN Chronic systolic heart failure (CMS/HCC) (Primary Dx) 06/13/2025 Telephone [facility] [address] [place] [address] Aydee Rolon RN 06/02/2025 4:20 PM EDT Office Visit [facility] [address] [place] [address] Jean Jacome MD Chronic systolic heart failure (CMS/HCC) (Primary Dx) 06/02/2025 2:36 PM EDT - 06/02/2025 11:59 PM EDT Hospital Encounter Medical Office Building Cardiac Diagnostic Testing Medical Office Building Echo Lab [address] [place] [address] Congestive heart failure, unspecified HF chronicity, unspecified heart failure type (CMS/HCC) Discharge Disposition: Home or Self Care 06/02/2025 Travel from Last 3 Months Immunizations Immunization Administration [...] place to sleep or slept in a retirement (including now)? No 08/24/2024 PHQ-9 Answer Date [...] drink first t margarito in the morning (EYE-WORKERS COMPENSATION ADJUSTER) to steady your nerves or to get rid of a hangover? 0 08/20/2024 CAGE Questionnaire Score 0 024 Utilities Answer Date Recorded In the past 12 months has e [employer], gas, oil, or water [employer] threatened to shut off services in your [...] 2021 Sigmoidoscopy 2021 [facility]-Colorectal Cancer Screening 2021 [facility]- SDOH Screenings 02/22/2025 [facility]-Adult SDOH Screenings 02/22/2025 08/24/2024 [id number] Vaccine (1 - season) 2025 [facility]-Influenza Vaccine (#1) 2025 [facility]-Depression Screening 06/02/2026 [...] Ao Diam 33 mm KENIA ISCV PA SD(ACCEL) 17.3 mmHg KENIA ISCV LV EDV(MOD-4ch) 137 [...] improvement in LVEF and trace TR noted. us Jean Jacome MD CV ECHO PROCEDURES Final Resul t * ED HIV 1/2 Antibody/Antigen Screen w/Reflex to HIV 1/2 Differentiation (08/02/2024 8:08 PM EDT) [facility] HIV 1 & 2 Antibody/Antigen Screen Non Reactive Non Reactive 08/02/2024 9:03 PM EDT [facility] Comment:Screening for HIV 1 & 2 antibodies, and P24 antigen is NONREACTIVE. No confirmatory testing is required. Blood Venous blood specimen / Unknown Venipuncture / Unknown 08/02/2024 8:08 PM EDT 08/02/2024 8:22 PM EDT us Nicol Kilgore MD LAB BLOOD ORDERABLES Final Re sult Performing Organization Address [facility]/ZIP Co de Phone Number [facility] [address] [place] [address] * Hepatitis C Antibody - ED (08/02/2024 8:08 PM EDT) [facility] Hepatitis C Antibody Negative Negative 08/02/2024 10:30 PM EDT [facility] Blood Venous blood specimen / Unknown Venipuncture / Unknown 08/02/2024 8:08 PM EDT 08/02/2024 8:22 PM EDT us Nicol Kilgore MD LAB BLOOD ORDERABLES Final Re sult [facility] [address] [place] [address] from Last 3 Months or Most Recently Relevant to Health Maintenance Insurance [facility] MEDICAID Advance Directives * Full Code (Latest Code Status on File) Date Activated Date Inactivated Comments 08/20/2024 11:01 PM 08/26/2024 6:03 PM Question Answer Comments Patient has decision-making capacity? Yes Care Teams Lead Generation Marketing Manager Relationship Specialty Start Date End Date Jhoan Syed DO [address] [place] [address] PCP - General 08/31/24
--- OUTSIDE RECORDS SUMMARY | 2025-08-12 11:25 | XMS_ITS | Encounter Summary ---
Author Organization Healthcare Address [address] [place] [address] Care Team Providers Care Serger Name Role Phone YahairaJhoan Primary Care Provider [phone] Encounter Details Date Type Department Care Team (Late st Contact Info) Description 06/14/2025 Orders Only [facility] [place] [address] [place] [address] Aydee Rloon, RN - Outpatient Center Chronic systolic heart [...] in a alf (including now)? No 08/24/2024 PHQ-9 Answer Date [...] drink first t margarito in the morning (EYE-ORTHOPAEDIC PHYSICIAN ASSISTANT) to steady your nerves or to [...] 06/14/2025 3:52 PM EDT Order faxed to [facility] per pt request. Will go 06/15-06/16. documented in this encounter Plan of Treatment Scheduled Orders Name Type Priority Associated Diagnoses Orde r Schedule Basic metabolic panel Lab Routine Chronic systolic heart failure (CMS/HCC) Expected: 06/14/2025 (Approximate), Expires: 12/16/2026 documented as of this encounter Visit Diagnoses Diagnosis Chronic systolic heart failure- Primary documented in this encounter Additional Health Concerns Assessment Noted Time PHQ-9 Depression Total Score: 0 06/02/20 4:34 PM EDT A fall risk assessment has been complete d for the patient 06/02/2025 4:34 PM EDT A Body Mass Index follow-up plan has been documented for the patient 06/04/2025 5:25 PM EDT documented as of this encounter Care Teams Serger Relationship Specialty Start Date End Date Jhoan Syed DO [address] [place] [address] PCP - General 08/31/24 documented as of this encounter
--- OUTSIDE RECORDS SUMMARY | 2025-08-12 11:25 | XMS_ITS | Encounter Summary ---
Author Organization Healthcare Address [address] [place] [address] Care Team Providers Care Horticulture Superintendent Name Role Phone Jhoan Syed DO Primary Care Provider [phone] Encounter Details Date Type Department Care Team (Late st Contact Info) Description 06/13/2025 Telephone [facility] [place] [address] [place] [address] Aydee Rolon, RN - Outpatient Center Social [...] place to sleep or slept in a custodial (including now)? No 08/24/2024 PHQ-9 Answer Date [...] drink first t margarito in the morning (EYE-MEAT SCRUBBER) to steady your nerves or to get [...] documented as of this encounter Care Teams Horticulture Superintendent Relationship Specialty Start Date End Date Jhoan Syed DO [address] [place] [address] PCP - General 08/31/24 documented as of this encounter
== END 2025-08-12 23:59 | disposition home or self-care (01) ==
LOC: RAD 11:23
PROVIDERS: PCP Family Medicine; Visit Provider Family Medicine
DX: M25.78 Osteophyte, vertebrae (principal)
CPT/HCPCS: 72100